=== PATIENT | female | born 1935 | race Caucasian/White ===

== ENCOUNTER → 2017-10-01 12:16 | Outpatient (CLI) | payer MEDICARE, SELFPAY ==
[2017-10-01 14:17] LABS: Absolute Lymphocyte Count 1.27 X10^3/ul (0.83-4.51); Basophil# 0.01 X10^3/uL; Basophil% 0.1 % (0-1); Eosinophil# 0.33 X10^3/uL; Eosinophils% 3.5 % (0-5); Hematocrit 33.9 % (37-47); Hemoglobin 10.3 g/dl (12.0-15.0); Lymphocyte # 1.27 X10^3/ul (4.0); Lymphocyte % 13.7 % (19-41); Mean Corp Hgb Conc 30.4 g/gl (32-36); Mean Corpuscular Hgb 24.4 pg (27.0-32.0); Mean Corpuscular Volume 80.3 fL (81-99); Mean Platelet Vol. 9.4 fl (6.2-12.0); Monocyte# 0.71 X10^3/uL; Monocyte% 7.6 % (0-10); Neutrophil # 6.97 X10^3/uL (2.7-7.7); POSITIVE COUNT NO; POSITIVE DIFFERENTIAL NO; POSITIVE MORPHOLOGY NO; Platelet Count 349 K/mm3 (150-450); RBC Distribution Width CV 18.1 % (11.6-14.6); RBC Distribution Width SD 51.7 fl (35.1-43.9); Red Blood Count 4.22 M/mm3 (4.2-5.4); White Blood Count 9.3 K/mm3 (4.4-11.0)
[2017-10-01 14:37] LABS: ALB/GLOB Ratio 0.8 RATIO (0.9-2.4); AST(SGOT) 14 U/L (15-37); Alanine Aminotransfer ALT/SGPT 10 U/L (13-56); Albumin, Serum 3.1 g/dL (3.2-5.0); Alkaline Phosphatase 79 U/L (45-117); Anion Gap 8 (5-15); BUN 10 mg/dL (7-18); BUN/Creat Ratio 12.6 RATIO (10-20); Calcium,Total 8.8 mg/dL (8.5-10.1); Chloride 105 mmol/L (98-107); EST Glomerular Filtration Rate 74 mL/min (>60); Est Glom Filt Rate - Afr Amer 89 mL/min (>60); Globulin 3.9 g/dL (2.2-4.2); Glucose 106 mg/dL (74-106); Potassium 4.2 mmol/L (3.5-5.1); Sodium Level 140 mmol/L (136-145)
== END ==
PROVIDERS: Family Provider Family Medicine; PCP Family Medicine; Visit Provider Internal Medicine Rheumatology
DX: L40.59 Other psoriatic arthropathy (principal); Z79.899 Other long term (current) drug therapy; L40.8 Other psoriasis; M79.7 Fibromyalgia; M17.0 Bilateral primary osteoarthritis of knee; K21.0 Gastro-esophageal reflux disease with esophagitis; M47.897 Other spondylosis, lumbosacral region; M47.892 Other spondylosis, cervical region; Z85.42 Personal history of malignant neoplasm of other parts of uterus; Z90.710 Acquired absence of both cervix and uterus
CPT/HCPCS: 36415; 80053; 85025

== ENCOUNTER 2017-10-12 18:05 | Observation (INO) | payer MEDICARE, SELFPAY ==
[2017-10-12 18:11] VITALS: BP 175/69; PULSE 91; RESP 17; TEMP 36.8; O2SAT 93; BMI 39.8
[2017-10-12 18:57] LABS: Absolute Neutrophil Count 8.6 X10^3/uL (2.0-7.7); Basophil# 0.01 X10^3/uL; Basophil% 0.1 % (0-1); Eosinophil# 0.08 X10^3/uL; Eosinophils% 0.8 % (0-5); Hematocrit 33.6 % (37-47); Hemoglobin 10.2 g/dl (12.0-15.0); Lymphocyte % 8.5 % (19-41); Mean Corp Hgb Conc 30.4 g/gl (32-36); Mean Corpuscular Hgb 24.5 pg (27.0-32.0); Mean Corpuscular Volume 80.8 fL (81-99); Mean Platelet Vol. 8.3 fl (6.2-12.0); Monocyte% 9.4 % (0-10); Neutrophil % 81.1 % (47-70); Platelet Count 286 K/mm3 (150-450); RBC Distribution Width CV 18.9 % (11.6-14.6); RBC Distribution Width SD 55.5 fl (35.1-43.9); Red Blood Count 4.16 M/mm3 (4.2-5.4); White Blood Count 10.6 K/mm3 (4.4-11.0)
[2017-10-12] MEDS: Morphine 4 MG/ML Syringe IV ×2 (18:58→20:30)
[2017-10-12] MEDS: 0.9% Normal Saline 1,000 ML 150 ML IV (18:59)
[2017-10-12] MEDS: Ondansetron 4 MG/2 ML Vial IV (18:59)
[2017-10-12 19:08] LABS: Erythrocyte Sedimentation Rate 76 mm/hr (0-30); POSITIVE COUNT NO; POSITIVE DIFFERENTIAL NO; POSITIVE MORPHOLOGY NO
[2017-10-12 19:12] LABS: Anion Gap 9 (5-15); BUN 14 mg/dL (7-18); BUN/Creat Ratio 15.7 RATIO (10-20); CPK Total, Creatine Kinase 46 U/L (26-192); Calcium,Total 8.9 mg/dL (8.5-10.1); Chloride 103 mmol/L (98-107); Creatinine, Serum 0.89 mg/dL (0.55-1.02); EST Glomerular Filtration Rate 65 mL/min (>60); Est Glom Filt Rate - Afr Amer 78 mL/min (>60); Glucose 104 mg/dL (74-106); Potassium 3.8 mmol/L (3.5-5.1); Sodium Level 140 mmol/L (136-145)
[2017-10-12] MEDS: MethylPREDNISolone 125 MG/2 ML Vial IV (20:30)
[2017-10-12 20:33] VITALS: BP 162/70; PULSE 69; RESP 15; O2SAT 96
[2017-10-12 21:23] LABS: Mucous, Urine 0 SEEN /hpf (<or=2+); Red Blood Cells-Urine 0 SEEN /hpf (0-5)
[2017-10-12 21:31] LABS: Color, Urine Yellow (Yellow); Glucose, Dipstick Normal (Normal); Ketone-Dipstick Negative (Negative); Leukocyte Esterase-Dipstick 500 /ul (Negative); Nitrite-Dipstick Positive (Negative); Occult Blood-Urine 10 /ul (Negative); Protein-Dipstick Negative (Negative); Urine Bilirubin Dipstick Negative (Negative); Urine Clarity Sl. Cloudy (Clear); Urine Urobilinogen Normal (Normal)
[2017-10-12 21:47] LABS: Bacteria 4+ /hpf (None Seen); Squamous Epithelial Cells - UA 0-5 SEEN /hpf (5-10); White Blood Cells 10-25 SEEN /hpf (0-5)
--- NOTE | 2017-10-12 22:20 | ED.VISSUMM ---
- ER Visit Summary Date of Service: 10/12/17 Chief Complaint: Diffuse pain and weakness History of Present Illness: The patient is a [address] Negron, Dr. apolonia bardales, and Dr. Nobles. She has a history of rheumatoid arthritis. She reports that today she has diffuse myalgias and arthralgias that are 10 out of 10 in severity with movement and 8 out of 10 at rest. She has taken her OxyContin without relief. She denies any trauma. No fall, MVA, or change in activity. Patient does complain of dysuria. She denies frequency. No fever or chills. Physical Examination: Vitals: Stable. Afebrile. General: Well-nourished and well-developed. Head: Normocephalic atraumatic. Neck: Supple, no lymphadenopathy. No JVD. Nontender. Cardiovascular: Regular rate and rhythm. No murmurs. Respiratory: No respiratory distress. Clear to auscultation bilaterally. Abdominal: Soft, nontender, nondistended, normal bowel sounds. No guarding, rebound, or peritoneal signs. Back: Diffuse tenderness to palpation over her entire back. No localized tenderness. Extremities: Diffuse tenderness palpation over her upper and lower extremities bilaterally. This is not localized over the joints. There is no focal tenderness to palpation. There is no erythema. I do not appreciate any joint swelling. Skin: Normal color, no rash. Neurologic: Alert and oriented ?3. Cranial nerves II through XII are intact. Normal strength and sensation. Psych: Depressed affect. Test Results: CBC is marked for an H&H of 10.2 and 33.6, segmented neutrophils of 81: Sats at 9. Chem-7 is normal. Sed rate is 76. CRP is 44.6. CPK is normal. UA does show a UTI. Emergency Department Course and Treatment: Patient was treated with morphine IV and Solu-Medrol IV. On repeat exam she continues to state that she is too weak to go home. She was given a dose of Rocephin IV and her urine was sent for culture. Treatment Plan: At this time patient tach cannot even get up to the bedside commode. She lives at home with her . I feel that she warrants admission to the hospital overnight for observation and further treatment. Disposition: Admitted in improved condition. Impression: 1. Rheumatoid arthritis. 2. UTI. 3. Generalized weakness. This note was generated with [employer] dictation software. It may contain incorrect words, spelling, and punctuation that were not noted in review of the chart prior to signing ED Disposition - Plan for ED Patient: Chief Complaint: Other, Pain/Inj Referrals: Yony Wilson MD [Primary Care Provider] -
[2017-10-12] MEDS: Ceftriaxone 1 GM/50 ML BAG IV (22:35)
--- NOTE | 2017-10-12 22:53 | HP.PCM_ITS ---
Problem List (1) Rheumatoid arthritis Status: Acute (2) UTI (urinary tract infection) Status: Acute (3) Generalized weakness Status: Acute History of Present Illness Date of Admission: 10/12/17 Chief Complaint: Generalized weakness The patient is a 82 year old female w/ h/o RA, OA, HTN and depression admitted for generalized weakness. She has been having increase generalized dull aching pain in the past few months to weeks. She also has been requiring more and more narcotics to keep her pain under controlled. However, today, she has severe diffused dull aching pain throughout her body. Nothing made it better or worse. Despite taking her pain meds, she continued to have pain. Pain is constant and has affected her ADLs. The pain is so incapacitating that she is unable to do her functional ADLs. She went to the ED for further workup. She also has dysuria today. There is no other symptoms associated with her dysuria. No change in frequency. No burning sensation. No fever or chill. Past Medical History Allergies Penicillins Allergy (Verified 10/12/17 18:06) Hives Home Medications: Ambulatory Orders Medication Instructions Recorded Citalopram [Celexa] 40 mg PO DAILY 07/06/15 Methotrexate 15 mg PO SA 07/06/15 Oxycodone CR [Oxycontin] 20 mg PO Q12H PRN PRN 07/06/15 Tizanidine HCl [Zanaflex] 4 mg PO Q8H PRN PRN 07/06/15 Zolpidem Tartrate [Ambien] 10 mg PO QHS 07/06/15 Esomeprazole Mag Trihydrate 40 mg PO DAILY 07/19/15 [Nexium] Folic Acid 1 mg PO DAILY@0800 07/19/15 Meloxicam [Mobic] 15 mg PO DAILY 07/19/15 Amlodipine/Valsartan [Exforge 1 each PO DAILY 06/02/17 5-320 mg Tablet] Apremilast [Otezla] 30 mg PO BID 06/02/17 Celecoxib [Celebrex] 200 mg PO DAILY 06/02/17 Cetirizine HCl [Zyrtec] 10 mg PO QHS 06/02/17 Docusate Sodium [Colace] 100 mg PO DAILY #20 capsule 06/04/17 Surgical History: no surgical history Psychiatric History: No pertinent psych hx 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 Lives: Spouse/ Significant Other Smoking Status: Never smoker Alcohol: None Drugs: None - *Family History Maternal History Items: No pertinent history Review of Systems Constitutional: Denies: Chills, Fever, Weight Change Eyes: Denies: Cataracts, Drainage HEENT: Denies: Head Aches, Sinus Congestion, Sinus Drainage Cardiovascular: Denies: Chest Pain, Palpitations Respiratory: Denies: Cough, Shortness of breath at rest, Sputum production Gastrointestinal: Denies: Abdominal Pain, Nausea, Vomiting Genitourinary: Denies: Dysuria Gynecological: Denies: Breast symptoms, Excessively long or heavy periods Musculoskeletal: Denies: Joint Pain, Joint Tenderness Skin: Denies: Rash, Wounds Neurological: Denies: Numbness, Tingling, Focal weakness Psychiatric: Denies: Anxiety, Depression, Homicidal Ideations, Suicidal Ideations Hematologic/ Lymphatic: Denies: Easy Bruising, Easy Bleeding VTE Information - Inpt Only VTE Present on Admission: No VTE Mechan Device Prophylaxis: SCD's VTE Pharm Prophylaxis ordered?: Yes Patient Problems: Active and Suspected Problems Rheumatoid arthritis (Acute) UTI (urinary tract infection) (Acute) Generalized weakness (Acute) - Physical Exam General: Alert, Cooperative HEENT: Atraumatic, PERRLA, EOMI, Normocephalic Neck: Supple, No JVD, Negative Carotid Bruits Lungs: Clear to auscultation, Normal air movement Cardiovascular: Regular rate, No murmurs Abdomen: Bowel Sounds Present, Soft, Non Tender Extremities: No edema, Capillary Refill Less than 3 Seconds Skin: No rashes, No breakdown Musculoskeletal: No Tenderness to Palpation of Joints or Extremities Neurological: Cranial nerves II-XII grossly intact Psych/Mental Status: Normal Affect, Appropriate Vital Signs Temp Pulse Resp BP Pulse Ox 98.3 F 69 15 162/70 H 96 10/12/17 18:11 10/12/17 20:33 10/12/17 20:33 10/12/17 20:33 10/12/17 20:33 Oxygen Flow Rate (L/min) 2 Oxygen Delivery Method Nasal Cannula Weight: 102.058 kg Body Mass Index (BMI) 39.8 Laboratory Tests Past 24 Hrs 10/12/17 10/12/17 10/12/17 18:40 18:40 21:22 WBC 10.6 RBC 4.16 L Hgb 10.2 L Hct 33.6 L MCV 80.8 L MCH 24.5 L MCHC 30.4 L RDW 18.9 H RDW Differential 55.5 H Plt Count 286 MPV 8.3 Immature Gran % (Auto) 0.100 Neut % (Auto) 81.1 H Lymph % (Auto) 8.5 L [place] % (Auto) 9.4 Eos % (Auto) 0.8 Baso % (Auto) 0.1 Absolute Neuts (auto) 8.6 H Absolute Lymphs (auto) 0.90 Total Counted Not Reportable ESR 76 H Sodium 140 Potassium 3.8 Chloride 103 Carbon Dioxide 28.0 Anion Gap 9 BUN 14 Creatinine 0.89 Estim Creat Clear Calc 41.70 Est GFR (MDRD) Af Amer 78 Est GFR (MDRD) Non-Af 65 BUN/Creatinine Ratio 15.7 Glucose 104 Calcium 8.9 Total Creatine Kinase 46 C-React Prot Ext Range 44.60 H Urine Color Yellow Urine Clarity Sl. Cloudy Urine pH 7.0 Ur Specific [place] 1.010 Urine Protein Negative Urine Glucose (UA) Normal Urine Ketones Negative Urine Occult Blood 10 H Urine Nitrite Positive H Urine Bilirubin Negative Urine Urobilinogen Normal Ur Leukocyte Esterase 500 H Urine RBC 0 SEEN Urine WBC 10-25 SEEN Ur Squamous Epith Cells 0-5 SEEN Urine Bacteria 4+ Urine Mucus 0 SEEN Assessment/Plan Active and Suspected Problems Rheumatoid arthritis (Acute) UTI (urinary tract infection) (Acute) Generalized weakness (Acute) 82 year old female w/ h/o RA, OA, HTN and depression admitted for generalized weakness. 1) Generalized weakness: Probably secondary to incapacitating pain, high dose narcotics, and UTI. Supportive care. Will try to limit narcotics if possible. 2) UTI: C/w ceftriaxone. Cultures pending. Monitor. 3) RA: Resume home meds. Monitor. 4) Prophylaxis: SCD / heparin.
[2017-10-13] VITALS (7 sets, daily range): BP systolic 107–160; BP diastolic 55–84; PULSE 55–84; RESP 16–18; TEMP 36.4–36.7; O2SAT 95–97; BMI 39.2; BMI 39.3
[2017-10-13] MEDS: 0.9% Normal Saline 1,000 ML 150 ML IV ×2 (02:00→09:07)
[2017-10-13] MEDS: tiZANidine HCl 2 MG Tablet 4 MG PO ×2 (02:46→21:24)
[2017-10-13] MEDS: Acetaminophen 325 MG Tablet 650 MG PO ×4 (02:46→21:24)
[2017-10-13] MEDS: Heparin Injection (Vial) 5,000 UNIT/ML VIAL 5000 UNIT SC ×3 (05:49→21:24)
[2017-10-13 06:22] LABS: Anion Gap 6 (5-15); BUN 14 mg/dL (7-18); BUN/Creat Ratio 18.7 RATIO (10-20); Calcium,Total 8.3 mg/dL (8.5-10.1); Chloride 108 mmol/L (98-107); Creatinine, Serum 0.75 mg/dL (0.55-1.02); EST Glomerular Filtration Rate 79 mL/min (>60); Est Glom Filt Rate - Afr Amer 96 mL/min (>60); Estimated Creatinine Clearance 37.12 ml/min; Glucose 182 mg/dL (74-106); Potassium 4.7 mmol/L (3.5-5.1); Sodium Level 137 mmol/L (136-145)
[2017-10-13 06:32] LABS: Absolute Lymphocyte Count 0.46 X10^3/ul (0.83-4.51); Hematocrit 31.8 % (37-47); Hemoglobin 9.5 g/dl (12.0-15.0); Lymphocyte # 0.46 X10^3/ul (4.0); Lymphocyte % 6.1 % (19-41); Mean Corp Hgb Conc 29.9 g/gl (32-36); Mean Corpuscular Hgb 24.3 pg (27.0-32.0); Mean Corpuscular Volume 81.3 fL (81-99); Mean Platelet Vol. 8.7 fl (6.2-12.0); Monocyte# 0.07 X10^3/uL; Monocyte% 0.9 % (0-10); Neutrophil # 7.03 X10^3/uL (2.7-7.7); Neutrophil % 92.9 % (47-70); Platelet Count 286 K/mm3 (150-450); RBC Distribution Width CV 18.9 % (11.6-14.6); RBC Distribution Width SD 55.2 fl (35.1-43.9); Red Blood Count 3.91 M/mm3 (4.2-5.4); White Blood Count 7.6 K/mm3 (4.4-11.0)
[2017-10-13 06:43] LABS: Differential Indicated SCAN CRITERIA MET; POSITIVE COUNT NO; POSITIVE DIFFERENTIAL YES; POSITIVE MORPHOLOGY NO
[2017-10-13 07:09] LABS: Anisocytosis 2+; Differential Comment SCANNED; Hypochromasia 1+
--- NOTE | 2017-10-13 08:36 | PN_ITS ---
Patient Problems: Active and Suspected Problems Rheumatoid arthritis (Acute) UTI (urinary tract infection) (Acute) Generalized weakness (Acute) Subjective: Patient is an 82-year-old lady with comorbidities including rheumatoid arthritis who presented with progressive generalized weakness. Admission assessment was consistent with acute cystitis started on Rocephin admitted to regular nursing floor where patient has since been managed Objective: GENERAL: cooperative HEENT: Clear conjunctiva, NECK; supple, normal thyroid, CHEST: Clear to auscultation bilaterally, HEART: Regular S1 S2, no audible murmurs ABDOMEN: soft, non-tender, normoactive bowel sounds, RECTAL: deferred EXTREMITIES: No edema, no clubbing, no cyanosis. FUR TRIMMER: Awake, no lateralizing signs. SKIN: No rash Vitals/I&O's: Vital Signs Temp Pulse Resp BP Pulse Ox 98.1 F 55 L 18 107/55 L 95 10/13/17 05:52 10/13/17 05:52 10/13/17 05:52 10/13/17 05:52 10/13/17 05:52 Oxygen Flow Rate (L/min) 2 Oxygen Delivery Method Room Air Weight: 100.6 kg Body Mass Index (BMI) 39.2 Intake and Output for Last 24 Hours 10/11/17 10/12/17 10/13/17 23:59 23:59 23:59 Intake Total 1055 / 1055 Output Total 300 / 300 Balance 755 / 755 Laboratory Results 10/13/17 05:24: WBC Cancelled, Corrected WBC Cancelled, RBC Cancelled, Hgb Cancelled, Hct Cancelled, MCV Cancelled, MCH Cancelled, MCHC Cancelled, RDW Cancelled, RDW Differential Cancelled, Plt Count Cancelled, MPV Cancelled, Immature Gran % (Auto) Cancelled, Neut % (Auto) Cancelled, Lymph % (Auto) Cancelled, [place] % (Auto) Cancelled, Eos % (Auto) Cancelled, Baso % (Auto) Cancelled, Absolute Neuts (auto) Cancelled, Absolute Lymphs (auto) Cancelled, Total Counted Cancelled, Neutrophils % (Manual) Cancelled, Band Neutrophils % Cancelled, Lymphocytes % (Manual) Cancelled, Monocytes % (Manual) Cancelled, Eosinophils % (Manual) Cancelled, Basophils % (Manual) Cancelled, Metamyelocytes % Cancelled, Myelocytes % Cancelled, Promyelocytes % Cancelled, Blast Cells % Cancelled, Plasma Cell % (Manual) Cancelled, Other Cells % Cancelled, Nucleated RBCs/100 WBC Cancelled, Differential Comment Cancelled, Diff Path Review Cancelled, Hypersegmented Neuts Cancelled, Atypical Lymphocytes Cancelled, Reactive Lymphocytes Cancelled, Smudge Cells Cancelled, Toxic Granulation Cancelled, Dohle Bodies Cancelled, Mone Rods Cancelled, Platelet Estimate Cancelled, Plt Morphology Comment Cancelled, RBC Morphology Cancelled, Polychromasia Cancelled, Hypochromasia Cancelled, Poikilocytosis Cancelled, Basophilic Stippling Cancelled, Anisocytosis Cancelled, Microcytosis Cancelled, Macrocytosis Cancelled, Spherocytes Cancelled, Sickle Cells Cancelled , Target Cells Cancelled, Tear Drop Cells Cancelled, Ovalocytes Cancelled, Stomatocytes Cancelled, [place] Bodies Cancelled, Rufus Cells Cancelled, Bite Cells Cancelled, Acanthocytes (Spur) Cancelled, Rouleaux Cancelled, Schistocytes Cancelled 10/13/17 05:24: Sodium 137, Potassium 4.7, Chloride 108 H, Carbon Dioxide 23.0, Anion Gap 6, BUN 14, Creatinine 0.75, Estim Creat Clear Calc 37.12, Est GFR ( MDRD) Af Amer 96, Est GFR (MDRD) Non-Af 79, BUN/Creatinine Ratio 18.7, Glucose 182 H, Calcium 8.3 L 10/13/17 06:10: WBC 7.6, RBC 3.91 L, Hgb 9.5 L, Hct 31.8 L, MCV 81.3, MCH 24.3 L , MCHC 29.9 L, RDW 18.9 H, RDW Differential 55.2 H, Plt Count 286, MPV 8.7, Immature Gran % (Auto) 0.100, Neut % (Auto) 92.9 H, Lymph % (Auto) 6.1 L, [place] % (Auto) 0.9, Eos % (Auto) 0.0, Baso % (Auto) 0.0, Absolute Neuts (auto) 7.0, Absolute Lymphs (auto) 0.46 L, Total Counted Not Reportable, Differential Comment SCANNED, Hypochromasia 1+, Anisocytosis 2+ Current Medications Acetaminophen (Tylenol) 650 mg PO Q6H PRN PRN PRN Reason: PAIN Last Admin: 10/13/17 02:46 Dose: 650 mg Amlodipine Besylate (Norvasc) 5 mg PO DAILY [facility] Citalopram Hydrobromide (Celexa) 40 mg PO DAILY [facility] Docusate Sodium (Colace) 100 mg PO DAILY [facility] Folic Acid (Folic Acid) 1 mg PO DAILY@0800 [facility] Heparin Sodium (Porcine) (Heparin Na) 5,000 unit SC Q8 [facility] Last Admin: 10/13/17 05:49 Dose: 5,000 u Sodium Chloride () 1,000 mls @ 150 mls/hr IV .Q6H40M [facility] Last Admin: 10/13/17 02:00 Dose: 150 mls/hr Ceftriaxone Sodium (Rocephin) 1 gm in 50 mls @ 100 mls/hr IV Q24 [facility] Loratadine (Claritin) 10 mg PO QHS [facility] Magnesium Hydroxide (Milk Of Magnesia) 30 ml PO DAILY PRN PRN PRN Reason: Constipation Methotrexate (Methotrexate) 15 mg PO SA [facility] Non-Formulary Medication (Apremilast) 30 mg PO BID [facility] Pantoprazole Sodium (Protonix) 40 mg PO DAILY [facility] Senna (Senokot) 2 tablet PO DAILY [facility] Sodium Chloride () 5 - 30 ml IV UD PRN PRN Reason: SALINE FLUSH Tizanidine HCl (Zanaflex) 4 mg PO Q8H PRN PRN PRN Reason: MUSCLE SPASMS Last Admin: 10/13/17 02:46 Dose: 4 mg Valsartan (Diovan) 320 mg PO DAILY [facility] Zolpidem Tartrate (Ambien (Generic)) 5 mg PO QHS [facility] Medical Necessity - Tobacco Use Smoking Status: Never smoker Assessment/Plan Active and Suspected Problems Rheumatoid arthritis (Acute) UTI (urinary tract infection) (Acute) Generalized weakness (Acute) Patient is an 82-year-old lady with comorbidities including rheumatoid arthritis who presented with progressive generalized weakness. Admission assessment was consistent with acute cystitis started on Rocephin admitted to regular nursing floor where patient has since been managed 1. Acute cystitis without hematuria: Patient has been admitted to regular nursing floor cultures were sent and admission managed on Rocephin with plans to adjust antibiotic therapy based on culture result 2. Progressive generalized weakness possibly secondary to above in addition to patient underlying history of generalized osteoarthritis and rheumatoid arthritis requested for PT OT eval and social media director to assist with discharge planning 3. Rheumatoid arthritis patient patient is on methotrexate did continue 4. Generalized osteoarthritis 5. Hypertension pressure stable home medications continued 6. Depression patient is on SSRI 7. DVT prophylaxis SC heparin Code Visit OBSV E&M: 54459 Subsequent observation care L3
[2017-10-13] MEDS: Folic Acid 1 MG Tablet PO (09:05)
[2017-10-13] MEDS: Pantoprazole Sodium 40 MG Tablet PO (09:06)
[2017-10-13] MEDS: amLODIPine 5 MG Tablet PO (09:06)
[2017-10-13] MEDS: Docusate Sodium 100 MG Capsule PO (09:06)
[2017-10-13] MEDS: Citalopram 40 MG TABLET PO (09:07)
[2017-10-13] MEDS: Ceftriaxone 1 GM/50 ML BAG IV (09:08)
[2017-10-13] MEDS: Senna Tablet 2 TABLET PO (09:23)
[2017-10-13] MEDS: Loratadine 10 MG Tablet PO (21:24)
[2017-10-13] MEDS: Zolpidem Tartrate 5 MG Tablet PO (23:00)
[2017-10-14 02:10] VITALS: BP 150/78; PULSE 67; RESP 18; TEMP 36.4; O2SAT 97
[2017-10-14] MEDS: Heparin Injection (Vial) 5,000 UNIT/ML VIAL 5000 UNIT SC (06:04)
[2017-10-14 08:06] VITALS: BP 185/96; PULSE 76; RESP 20; TEMP 36.6; O2SAT 100
[2017-10-14] MEDS: Pantoprazole Sodium 40 MG Tablet PO (08:15)
[2017-10-14] MEDS: tiZANidine HCl 2 MG Tablet 4 MG PO (08:15)
[2017-10-14] MEDS: Acetaminophen 325 MG Tablet 650 MG PO (08:15)
[2017-10-14] MEDS: amLODIPine 5 MG Tablet PO (08:16)
[2017-10-14] MEDS: Folic Acid 1 MG Tablet PO (08:16)
--- NOTE | 2017-10-14 08:28 | PCM.DC ---
- Discharge Diagnoses Current Active Problems: Current Active and Chronic Problems Rheumatoid arthritis (Acute) UTI (urinary tract infection) (Acute) Generalized weakness (Acute) You will use the following diet at home:: No restrictions Discharge Activity: May not drive while taking narcotic pain medications. Allergies/Adverse Reactions: Allergies Penicillins Allergy (Verified 10/12/17 18:06) Hives Medications to take at Discharge Citalopram [Celexa] 40 mg PO DAILY 07/06/15 Methotrexate 15 mg PO SA 07/06/15 Oxycodone CR [Oxycontin] 20 mg PO Q12H PRN PRN 07/06/15 Tizanidine HCl [Zanaflex] 4 mg PO Q8H PRN PRN 07/06/15 Zolpidem Tartrate [Ambien] 10 mg PO QHS 07/06/15 Esomeprazole Mag Trihydrate [Nexium] 40 mg PO DAILY 07/19/15 Folic Acid 1 mg PO DAILY@0800 07/19/15 Meloxicam [Mobic] 15 mg PO DAILY 07/19/15 Amlodipine/Valsartan [Exforge 5-320 mg Tablet] 1 each PO DAILY 06/02/17 Apremilast [Otezla] 30 mg PO BID 06/02/17 Celecoxib [Celebrex] 200 mg PO DAILY 06/02/17 Cetirizine HCl [Zyrtec] 10 mg PO QHS 06/02/17 Docusate Sodium [Colace] 100 mg PO DAILY #20 capsule 06/04/17 Cephalexin [Keflex] 500 mg PO Q12 #14 cap 10/14/17 The following prescriptions were given: Cephalexin [Keflex] 500 mg PO Q12 #14 cap Primary Care Physician: Yony Wilson MD [Primary Care Provider] - Please follow up with your Primary Care Physician in: in 3-5 days Proposed Discharge Date: 10/14/17
--- NOTE | 2017-10-14 08:31 | PCM.DC.SUM ---
Discharge Date and Diagnosis - Problem List Patient Problems: Active and Suspected Problems UTI (urinary tract infection) (Acute) Generalized weakness (Acute) Date of Admission: 10/12/17 Date of Discharge: 10/14/17 - Primary Discharge Diagnosis Active and Suspected Problems UTI (urinary tract infection) (Acute) Generalized weakness (Acute) - Secondary Discharge Diagnosis Chronic Problems Rheumatoid arthritis (Chronic) Hospital Course and Treatment Summary of Care Provided: Patient is an 82-year-old lady with comorbidities including rheumatoid arthritis who presented with progressive generalized weakness. Admission assessment was consistent with acute cystitis started on Rocephin admitted to regular nursing floor where patient has since been managed 1. Acute cystitis without hematuria with Klebsiella: Patient was admitted to regular nursing floor cultures were sent and admission managed on Rocephin which was switched to Keflex on discharge 2. Progressive generalized weakness possibly secondary to above in addition to patient underlying history of generalized osteoarthritis and rheumatoid arthritis requested for PT OT eval and high school social studies teacher to assist with discharge planning 3. Rheumatoid arthritis patient patient is on methotrexate did continue 4. Generalized osteoarthritis 5. Hypertension pressure stable home medications continued 6. Depression patient is on SSRI 7. DVT prophylaxis SC heparin Discharge Diet: No Restrictions Discharge Activity: May not drive while taking narcotic pain medications. Home Medications: Medications to take at Discharge Citalopram [Celexa] 40 mg PO DAILY 07/06/15 Methotrexate 15 mg PO SA 07/06/15 Oxycodone CR [Oxycontin] 20 mg PO Q12H PRN PRN 07/06/15 Tizanidine HCl [Zanaflex] 4 mg PO Q8H PRN PRN 07/06/15 Zolpidem Tartrate [Ambien] 10 mg PO QHS 07/06/15 Esomeprazole Mag Trihydrate [Nexium] 40 mg PO DAILY 07/19/15 Folic Acid 1 mg PO DAILY@0800 07/19/15 Meloxicam [Mobic] 15 mg PO DAILY 07/19/15 Amlodipine/Valsartan [Exforge 5-320 mg Tablet] 1 each PO DAILY 06/02/17 Apremilast [Otezla] 30 mg PO BID 06/02/17 Celecoxib [Celebrex] 200 mg PO DAILY 06/02/17 Cetirizine HCl [Zyrtec] 10 mg PO QHS 06/02/17 Docusate Sodium [Colace] 100 mg PO DAILY #20 capsule 06/04/17 Cephalexin [Keflex] 500 mg PO Q12 #14 cap 10/14/17 Following Prescrptions Were Given to Patient: Cephalexin [Keflex] 500 mg PO Q12 #14 cap Primary Care Physician: Yony Wilson MD [Primary Care Provider] - Please follow up with your Primary Care Physician in: in 3-5 days Disposition: Home Minutes spent on discharge:: 35 Patient Condition:: Stable Medical Necessity - Tobacco Use Smoking Status: Never smoker Meaningful Use Info Meaningful Use Diagnoses (Choose all that apply): None applicable Code Visit OBSV E&M: 59094 Observation care discharge
[2017-10-14 10:00] VITALS: BP 151/89; PULSE 66; RESP 16
[2017-10-14] MEDS: Citalopram 40 MG TABLET PO (10:02)
== END 2017-10-14 10:15 | disposition home or self-care (01) ==
LOC: ED 20:49 → MS3 10-13 00:25
PROVIDERS: Admitting Provider Internal Medicine; Emergency Provider Emergency Medicine; Family Provider Family Medicine; PCP Family Medicine; Visit Provider Internal Medicine
DX: N30.00 Acute cystitis without hematuria (principal); R53.1 Weakness; M06.9 Rheumatoid arthritis, unspecified; M15.9 Polyosteoarthritis, unspecified; I10 Essential (primary) hypertension; F32.9 Major depressive disorder, single episode, unspecified; Z79.899 Other long term (current) drug therapy
CPT/HCPCS: 36415; 80048; 81001; 82550; 85025; 85652; 86140; 87040; 87077; 87086; 87088; 87186; 96361; 96365; 96372; 96375; 96376; 97162; 97165; 99218; 99285; J7030; A4216; G0378; J2405

== ENCOUNTER 2017-12-18 21:12 | Observation (INO) | payer MEDICARE, SELFPAY ==
[2017-12-18 21:13] VITALS: BP 142/78; PULSE 67; RESP 18; TEMP 36.9; O2SAT 98; BMI 39.4
--- NOTE | 2017-12-18 21:28 | EKG12_ITS ---
Test Reason : OVERDOSE Blood Pressure : / mmHG Vent. Rate : 062 BPM Atrial Rate : 062 BPM P-R Int : 160 ms QRS Dur : 094 ms QT Int : 450 ms P-R-T Axes : 045 -12 025 degrees QTc Int : 456 ms Normal sinus rhythm Nonspecific ST abnormality Abnormal ECG Confirmed by KHUSHI JACK, KO ([id number]), technical editor ZHANG GUZMAN ([id number] on 12/22/2017 3:03:24 PM Referred By: SHYLA Confirmed By:KO PURI MD
--- NOTE | 2017-12-18 21:30 | RAD_ITS ---
STUDY: X-RAY CHEST REASON FOR EXAM: Female, 82 years old. Shortness of breath. Dyspnea. TECHNIQUE: Single AP portable view of the chest. COMPARISON: June 02, 2017 FINDINGS: There are monitoring devices. The lungs are clear and expanded. There is no demonstrated pleural abnormality. There is mild cardiac enlargement. Normal mediastinum and alexa. Normal visualized pulmonary arteries. Normal visualized aortic arch and descending thoracic aorta. There is demineralization of the osseous structures. Normal visualized ribs, clavicles, and shoulders. There is no demonstrated abnormality of the visualized soft tissue structures of the upper abdomen. RAD/Chest 1 View (Portable) IMPRESSION: Cardiac enlargement. No focal infiltrate. Electronically Signed: Hayden Corea MD at 22:06 EDT , Service support ,
--- NOTE | 2017-12-18 21:32 | ED.VISSUMM ---
- ER Visit Summary Date of Service: 12/18/17 Chief Complaint: Overdose History of Present Illness: The patient is a 82 F presenting with overdose. Patient's states she has been under a lot of stress recently. Her daughter recently moved to [place]. Her dog recently . She was seen by her primary care physician yesterday. She was prescribed Macrobid and Ativan. Today he noted that she had taken 13 Ativan. He is unsure the timeframe. The prescription was filled yesterday. She also takes OxyContin 20 mg twice daily. She has chronic pain secondary to rheumatoid arthritis. He states she has been taking this appropriately. She is drowsy but arousable. Physical Examination: Vitals are stable. Patient is afebrile. Alert no acute distress. HEENT exam is unremarkable. Neck is supple. Lungs are clear and equal bilaterally. Heart is regular rate and rhythm. Abdomen is soft nontender nondistended. Extremities are unremarkable. Skin is warm and dry. No focal neurologic deficit. Opens eyes to voice. Remainder of exam is unremarkable. Emergency Department Course and Treatment: EKG is sinus rate is 62 no acute ischemic changes. Chest x-ray shows no infiltrate. CBC unremarkable except hemoglobin 10.1. Chemistries unremarkable. Urinalysis unremarkable. Tylenol and aspirin level negative. Alcohol negative. Tox positive for opiates. Patient opens eyes to voice and follows commands. She answers questions appropriately. She denies suicidal thoughts or gesture. Will discuss with the hospitalist for observation. Disposition: Observation Impression: Benzodiazepine overdose This note was generated with [employer] dictation software. It may contain incorrect words, spelling, and punctuation that were not noted in review of the chart prior to signing ED Disposition - Plan for ED Patient: Chief Complaint: Overdose Referrals: Yony Wilson MD [Primary Care Provider] -
[2017-12-18 21:48] LABS: Absolute Lymphocyte Count 1.36 X10^3/ul (0.83-4.51); Absolute Neutrophil Count 6.4 X10^3/uL (2.0-7.7); Basophil# 0.01 X10^3/uL; Basophil% 0.1 % (0-1); Eosinophils% 2.5 % (0-5); Hemoglobin 10.1 g/dl (12.0-15.0); Lymphocyte # 1.36 X10^3/ul (4.0); Lymphocyte % 16.7 % (19-41); Mean Corp Hgb Conc 31.6 g/gl (32-36); Mean Corpuscular Hgb 26.1 pg (27.0-32.0); Mean Corpuscular Volume 82.7 fL (81-99); Mean Platelet Vol. 8.6 fl (6.2-12.0); Monocyte# 0.13 X10^3/uL; Monocyte% 1.6 % (0-10); Neutrophil # 6.44 X10^3/uL (2.7-7.7); POSITIVE COUNT NO; POSITIVE DIFFERENTIAL NO; POSITIVE MORPHOLOGY NO; Platelet Count 219 K/mm3 (150-450); RBC Distribution Width SD 57.5 fl (35.1-43.9); Red Blood Count 3.87 M/mm3 (4.2-5.4); White Blood Count 8.2 K/mm3 (4.4-11.0)
[2017-12-18 21:51] LABS: Anion Gap 6 (5-15); BUN 14 mg/dL (7-18); BUN/Creat Ratio 18.7 RATIO (10-20); Calcium,Total 9.5 mg/dL (8.5-10.1); Chloride 102 mmol/L (98-107); Creatinine, Serum 0.75 mg/dL (0.55-1.02); EST Glomerular Filtration Rate 79 mL/min (>60); Est Glom Filt Rate - Afr Amer 96 mL/min (>60); Estimated Creatinine Clearance 38.75 ml/min; Glucose 102 mg/dL (74-106); Potassium 4.1 mmol/L (3.5-5.1); Sodium Level 139 mmol/L (136-145)
[2017-12-18 22:12] LABS: Bacteria 0 SEEN /hpf (None Seen); Mucous, Urine 0 SEEN /hpf (<or=2+); Red Blood Cells-Urine 0 SEEN /hpf (0-5); Squamous Epithelial Cells - UA 0 SEEN /hpf (5-10)
[2017-12-18 22:17] LABS: Color, Urine Yellow (Yellow); Glucose, Dipstick Normal (Normal); Ketone-Dipstick Negative (Negative); Leukocyte Esterase-Dipstick 25 /ul (Negative); Nitrite-Dipstick Negative (Negative); Occult Blood-Urine Negative /ul (Negative); Protein-Dipstick Negative (Negative); Specific Gravity, Urine 1.015 (1.002-1.030); Urine Bilirubin Dipstick Negative (Negative); Urine Clarity Clear (Clear); Urine Urobilinogen Normal (Normal)
[2017-12-18 22:19] VITALS: BP 155/86; PULSE 78; RESP 18; O2SAT 96
[2017-12-18 22:20] LABS: Acetaminophen (Tylenol) Level < 2.0 ug/mL (10.0-30.0); Salicylate < 1.7 mg/dL (2.8-20.0)
[2017-12-18 22:30] LABS: Amphetamine Urine VISTA NEGATIVE (<1000 ng/mL); Barbiturate Urine VISTA NEGATIVE (< 200 ng/mL); Benzodiazepine Urine VISTA NEGATIVE (< 200 ng/mL); Cocaine Urine VISTA NEGATIVE (< 300 ng/mL); Ecstacy Urine VISTA NEGATIVE (< 500 ng/mL); Methadone Urine VISTA NEGATIVE (< 300 ng/mL); PCP Urine VISTA NEGATIVE (< 25 ng/mL); THC Urine VISTA NEGATIVE (< 50 ng/mL); Vista UDS pH Range 8
[2017-12-18 22:37] LABS: White Blood Cells 0-5 SEEN /hpf (0-5)
--- NOTE | 2017-12-18 22:58 | NURSING ---
pt denies purposeful overdose. 13 pills missing from lorazepam bottle, and also took her oxycodone.
[2017-12-18 22:59] VITALS: BP 164/76; PULSE 66; RESP 19; O2SAT 96
--- NOTE | 2017-12-18 23:26 | PCM.HP.STD ---
Problem List (1) Lethargy Status: Acute History of Present Illness Date of Admission: 12/18/17 Chief Complaint: lethargy The patient is a 82 year old F who was seen in the emergency room at [facility] after being brought in by her due to lethargy and sleepiness. Patient had been given Ativan yesterday for anxiety by her PCP, it appears according to the that 12 Ativan were missing from the patient's bottle from yesterday. These are 0.5 mg Ativan since she was not taking them previously. Patient has been under stress due to the of her pet and the fact that her daughter has moved out of state recently. Patient's who was in the emergency room at the time of my examination states that the patient has not complained of feeling depressed or wanting to or harm her self. Evaluation in the emergency room included labs which were remarkable for hemoglobin of 10.1, patient's Chem panel was unremarkable, patient's urine tox screen was positive for opiates only-I feel that there was a false negative reading for benzodiazepines on this patient's urine tox screen, I have seen this before on urine tox screens were the patient has taken Ativan. On physical examination, patient appear to be drowsy, review of systems was unable to be obtained from the patient and I obtained information from the patient's who was in the ER room at the time of my exam. Patient will be placed in observation status on PCU and observe closely, I feel that she has unintentionally taken too many Ativan and she is also chronically on oxycodone for rheumatoid arthritis pain. Patient will be placed in observation status for unintentional benzodiazepine overdose with somnolence Past Medical History Past Medical History (Chronic Problems): Chronic Problems Rheumatoid arthritis (Chronic) Allergies Penicillins Allergy (Verified 10/12/17 18:06) Hives Home Medications: Ambulatory Orders Medication Instructions Recorded Citalopram [Celexa] 40 mg PO DAILY 07/06/15 Methotrexate 15 mg PO SA 07/06/15 Oxycodone CR [Oxycontin] 20 mg PO Q12H PRN PRN 07/06/15 Tizanidine HCl [Zanaflex] 4 mg PO Q8H PRN PRN 07/06/15 Zolpidem Tartrate [Ambien] 10 mg PO QHS 07/06/15 Esomeprazole Mag Trihydrate 40 mg PO DAILY 07/19/15 [Nexium] Folic Acid 1 mg PO DAILY@0800 07/19/15 Meloxicam [Mobic] 15 mg PO DAILY 07/19/15 Amlodipine/Valsartan [Exforge 1 each PO DAILY 06/02/17 5-320 mg Tablet] Apremilast [Otezla] 30 mg PO BID 06/02/17 Celecoxib [Celebrex] 200 mg PO DAILY 06/02/17 Cetirizine HCl [Zyrtec] 10 mg PO QHS 06/02/17 Docusate Sodium [Colace] 100 mg PO DAILY #20 capsule 06/04/17 Lorazepam [Ativan] 0.5 mg PO BID 12/18/17 Nitrofurantoin Macrocrystal 100 mg PO DAILY 12/18/17 [Nitrofurantoin] Oxycodone HCl/Acetaminophen 1 tablet PO BID PRN 12/18/17 [Percocet 5/325] Theophylline [Luis Fernando-Dur] 300 mg PO DAILY 12/18/17 leucovorin tablet 15 mg PO DAILY 12/18/17 Surgical History: hysterectomy, - - Knee replacement Psychiatric History: No pertinent psych hx 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 VTE Information - Inpt Only VTE Present on Admission: No VTE Mechan Device Prophylaxis: SCD's VTE Pharm Prophylaxis ordered?: No Reason prophylaxis not ordered:: Treatment Not Indicated - placed on SCD's Patient Problems: Active and Suspected Problems Lethargy (Acute) - Physical Exam General: No apparent distress, Well developed, Well nourished, Lethargic HEENT: Atraumatic, PERRLA, EOMI, Normocephalic Oral: Moist Mucosa Neck: Supple, Negative Carotid Bruits, No Nuchal Rigidity, Trachea Midline, Thyroid Normal Size and Texture Lungs: Clear to auscultation, Normal air movement, No rhonchi, No wheeze, No rales Cardiovascular: Regular rate, Regular Rhythm, Normal S1, Normal S2, No murmurs, No Ectopic Activity, PMI Normal, No rub noted, No Gallop Abdomen: Bowel Sounds Present, Soft, Non Tender, Non-Distended, No hernias noted Extremities: No clubbing, No cyanosis, No edema, Capillary Refill Less than 3 Seconds Skin: No rashes, No breakdown Musculoskeletal: No Tenderness to Palpation of Joints or Extremities Neurological: Cranial nerves II-XII grossly intact, Neuro grossly intact, Sensory exam intact to light touch and pain Psych/Mental Status: - - Patient is lethargic and somnolent, she answers some questions appropriately with prompting, she does follow commands appropriately. Vital Signs Temp Pulse Resp BP Pulse Ox 98.4 F 66 19 H 164/76 H 96 12/18/17 21:13 12/18/17 22:59 12/18/17 22:59 12/18/17 22:59 12/18/17 22:59 Oxygen Flow Rate (L/min) 2 Oxygen Delivery Method Nasal Cannula Weight: 104.326 kg Body Mass Index (BMI) 39.4 Laboratory Tests Past 24 Hrs 12/18/17 12/18/17 12/18/17 21:25 21:25 21:25 WBC 8.2 RBC 3.87 L Hgb 10.1 L Hct 32.0 L MCV 82.7 MCH 26.1 L MCHC 31.6 L RDW 19.0 H RDW Differential 57.5 H Plt Count 219 MPV 8.6 Immature Gran % (Auto) 0.100 Neut % (Auto) 79.0 H Lymph % (Auto) 16.7 L Thurston % (Auto) 1.6 Eos % (Auto) 2.5 Baso % (Auto) 0.1 Absolute Neuts (auto) 6.4 Absolute Lymphs (auto) 1.36 Total Counted Not Reportable Sodium 139 Potassium 4.1 Chloride 102 Carbon Dioxide 31.0 Anion Gap 6 BUN 14 Creatinine 0.75 Estim Creat Clear Calc 38.75 Est GFR (MDRD) Af Amer 96 Est GFR (MDRD) Non-Af 79 BUN/Creatinine Ratio 18.7 Glucose 102 Calcium 9.5 Urine Color Urine Clarity Urine pH Ur Specific Bynum Urine Protein Urine Glucose (UA) Urine Ketones Urine Occult Blood Urine Nitrite Urine Bilirubin Urine Urobilinogen Ur Leukocyte Esterase Urine RBC Urine WBC Ur Squamous Epith Cells Urine Bacteria Urine Mucus Salicylates Urine Opiates Screen Urine Methadone Screen Acetaminophen Ur Barbiturates Screen Ur Phencyclidine Scrn Ur Amphetamines Screen U Methamphetamin-MDMA U Benzodiazepines Scrn Urine Cocaine Screen U Cannabinoids Screen Ur Drug Screen Comment Ethyl Alcohol 5.0 12/18/17 12/18/17 12/18/17 21:25 22:02 22:02 WBC RBC Hgb Hct MCV MCH MCHC RDW RDW Differential Plt Count MPV Immature Gran % (Auto) Neut % (Auto) Lymph % (Auto) Thurston % (Auto) Eos % (Auto) Baso % (Auto) Absolute Neuts (auto) Absolute Lymphs (auto) Total Counted Sodium Potassium Chloride Carbon Dioxide Anion Gap BUN Creatinine Estim Creat Clear Calc Est GFR (MDRD) Af Amer Est GFR (MDRD) Non-Af BUN/Creatinine Ratio Glucose Calcium Urine Color Yellow Urine Clarity Clear Urine pH 8.0 Ur Specific Bynum 1.015 Urine Protein Negative Urine Glucose (UA) Normal Urine Ketones Negative Urine Occult Blood Negative Urine Nitrite Negative Urine Bilirubin Negative Urine Urobilinogen Normal Ur Leukocyte Esterase 25 H Urine RBC 0 SEEN Urine WBC 0-5 SEEN Ur Squamous Epith Cells 0 SEEN Urine Bacteria 0 SEEN Urine Mucus 0 SEEN Salicylates < 1.7 L Urine Opiates Screen POSITIVE H Urine Methadone Screen NEGATIVE Acetaminophen < 2.0 L Ur Barbiturates Screen NEGATIVE Ur Phencyclidine Scrn NEGATIVE Ur Amphetamines Screen NEGATIVE U Methamphetamin-MDMA NEGATIVE U Benzodiazepines Scrn NEGATIVE Urine Cocaine Screen NEGATIVE U Cannabinoids Screen NEGATIVE Ur Drug Screen Comment Ethyl Alcohol Assessment/Plan All Active Problems Lethargy (Acute) UTI (urinary tract infection) (Acute) Generalized weakness (Acute) #1 toxic encephalopathy secondary to unintentional overuse of Ativan with an overlay of chronic narcotic and muscle relaxant use-patient will be placed in observation status on PCU, she will be monitored on telemetry, she will be seen by PT and OT, her medications will be continued with the exception of her Zanaflex, Macrodantin, and Ativan #2 unintentional overdose of benzodiazepine #3 rheumatoid arthritis #4 chronic pain secondary to rheumatoid arthritis #5 anemia-etiology unclear, possibly anemia of chronic disease from rheumatoid arthritis #6 hypertension-patient will remain on her present medication #7 chronic use of theophylline-reason unknown at this time, I was not able to asked the why the patient is taking theophylline #8 recently diagnosed UTI-patient's UA in the emergency room was unremarkable, I do not feel she needs Macrodantin at this time Code Visit OBSV E&M: 95848 Initial observation care L3
--- NOTE | 2017-12-18 23:36 | NURSING ---
Called Elsa charge nurse in ED, ok to send patient to the floor.
[2017-12-18 23:58] VITALS: BMI 37.2
[2017-12-19] VITALS (8 sets, daily range): BP systolic 133–198; BP diastolic 75–93; PULSE 62–91; RESP 16–20; TEMP 36–36.7; O2SAT 94–97; BMI 37.2
[2017-12-19] MEDS: Nystatin Powder 15gm Bottle 1 APPLIC TOPICAL (02:23)
[2017-12-19] MEDS: Menthol/Lanolin/Calamine/Znox 113 GM Tube 1 APPLIC TOPICAL (02:24)
[2017-12-19] MEDS: Pantoprazole Sodium 40 MG Tablet PO (08:06)
[2017-12-19] MEDS: Citalopram 40 MG TABLET PO (08:06)
[2017-12-19] MEDS: amLODIPine 5 MG Tablet PO (08:06)
[2017-12-19] MEDS: Celecoxib 200 MG Capsule PO (08:07)
--- NOTE | 2017-12-19 13:47 | PCM.DC ---
- Discharge Diagnoses Current Active Problems: Current Active and Chronic Problems Lethargy (Acute) You will use the following diet at home:: No restrictions Your food should be the consistency of: Regular Call your doctor if you observe: - - somnolence. Allergies/Adverse Reactions: Allergies Penicillins Allergy (Verified 12/19/17 00:14) Hives Medications to take at Discharge Citalopram [Celexa] 40 mg PO DAILY 07/06/15 Methotrexate 15 mg PO SA 07/06/15 Oxycodone CR [Oxycontin] 20 mg PO Q12H PRN PRN 07/06/15 Tizanidine HCl [Zanaflex] 4 mg PO Q8H PRN PRN 07/06/15 Zolpidem Tartrate [Ambien] 10 mg PO QHS 07/06/15 Esomeprazole Mag Trihydrate [Nexium] 40 mg PO DAILY 07/19/15 Folic Acid 1 mg PO DAILY@0800 07/19/15 Meloxicam [Mobic] 15 mg PO DAILY 07/19/15 Amlodipine/Valsartan [Exforge 5-320 mg Tablet] 1 each PO DAILY 06/02/17 Apremilast [Otezla] 30 mg PO BID 06/02/17 Celecoxib [Celebrex] 200 mg PO DAILY 06/02/17 Cetirizine HCl [Zyrtec] 10 mg PO QHS 06/02/17 Docusate Sodium [Colace] 100 mg PO DAILY #20 capsule 06/04/17 Nitrofurantoin Macrocrystal [Nitrofurantoin] 100 mg PO DAILY 12/18/17 Oxycodone HCl/Acetaminophen [Percocet 5-325] 1 tablet PO BID PRN 12/18/17 Theophylline [Luis Fernando-Dur] 300 mg PO DAILY 12/18/17 leucovorin tablet 15 mg PO DAILY 12/18/17 Lorazepam [Ativan] 0.5 mg PO BID PRN #0 12/19/17 Primary Care Physician: Yony Wilson MD [Primary Care Provider] - Within 2 Weeks Proposed Discharge Date: 12/19/17
--- NOTE | 2017-12-19 13:48 | PCM.DC.SUM ---
Discharge Date and Diagnosis - Problem List Patient Problems: Active and Suspected Problems Toxic encephalopathy (Acute) Lethargy (Acute) Date of Admission: 12/18/17 Date of Discharge: 12/19/17 - Primary Discharge Diagnosis Active and Suspected Problems Toxic encephalopathy (Acute) Lethargy (Acute) - Secondary Discharge Diagnosis Chronic Problems Rheumatoid arthritis (Chronic) Hospital Course and Treatment Imaging Results: Clinical Impression(s) from Imaging Studies Chest X-Ray 12/18/17 21:30 IMPRESSION: Cardiac enlargement. No focal infiltrate. Electronically Signed: Hayden Corea MD at 22:06 EDT , Service support , Operations: None Procedures: None Summary of Care Provided: The patient is a 82 year old F presents with due to lethargy and sleepiness. Patient recently has been prescribed Ativan for the of her pet dog and her daughter moving away pretty much within very short order. Patient had been just started on Ativan a day or 2 prior and was not taking with Ambien but may been taking multiple at night when she just could not fall asleep. Patient was unable to be aroused and sent to the emergency room. Patient eventually did come to and has remained stable. Patient denies any suicidal ideation. Discussed with the patient about proper usage of benzodiazepines. Explained that benzodiazepines should be used only as necessary for severe anxiety and should not be used for sleep. Patient is already on sleep aid with Ambien. Patient told to take the Ativan only in on a selective basis and certainly not frequent... Patient stated that she expressed understanding of that. Vital Signs Height 1.63 m Weight: 98.4 kg Weight in Pounds 216.9 lbs Pulse Ox 94 Temperature 36.6 C Pulse Rate 91 Respiratory Rate 20 Blood Pressure 184/93 Blood Pressure Position Sitting Patient is no acute distress and afebrile. Heart is regular rate and rhythm plus S1-S2 without murmurs rubs or rubs. Lungs are clear to auscultation bilaterally. Abdomen is soft nontender nondistended normal bowel sounds with no HSM. [] Discharge Diet: No Restrictions Discharge Activity: Return to Normal Activity May resume sexual activity in: No Restrictions Call your doctor if you observe: - - somnolence. Home Medications: Medications to take at Discharge Citalopram [Celexa] 40 mg PO DAILY 07/06/15 Methotrexate 15 mg PO SA 07/06/15 Oxycodone CR [Oxycontin] 20 mg PO Q12H PRN PRN 07/06/15 Tizanidine HCl [Zanaflex] 4 mg PO Q8H PRN PRN 07/06/15 Zolpidem Tartrate [Ambien] 10 mg PO QHS 07/06/15 Esomeprazole Mag Trihydrate [Nexium] 40 mg PO DAILY 07/19/15 Folic Acid 1 mg PO DAILY@0800 07/19/15 Meloxicam [Mobic] 15 mg PO DAILY 07/19/15 Amlodipine/Valsartan [Exforge 5-320 mg Tablet] 1 each PO DAILY 06/02/17 Apremilast [Otezla] 30 mg PO BID 06/02/17 Celecoxib [Celebrex] 200 mg PO DAILY 06/02/17 Cetirizine HCl [Zyrtec] 10 mg PO QHS 06/02/17 Docusate Sodium [Colace] 100 mg PO DAILY #20 capsule 06/04/17 Nitrofurantoin Macrocrystal [Nitrofurantoin] 100 mg PO DAILY 12/18/17 Oxycodone HCl/Acetaminophen [Percocet 5-325] 1 tablet PO BID PRN 12/18/17 Theophylline [Luis Fernando-Dur] 300 mg PO DAILY 12/18/17 leucovorin tablet 15 mg PO DAILY 12/18/17 Lorazepam [Ativan] 0.5 mg PO BID PRN #0 12/19/17 Primary Care Physician: Yony Wilson MD [Primary Care Provider] - Within 2 Weeks Disposition: Home Minutes spent on discharge:: 25 Patient Condition:: Fair Medical Necessity - Tobacco Use Smoking Status: Never smoker Tobacco Use: Non-smoker Meaningful Use Info Meaningful Use Diagnoses (Choose all that apply): None applicable Code Visit OBSV E&M: 38058 Observation care discharge
== END 2017-12-19 14:21 | disposition home or self-care (01) ==
LOC: ED 22:16 → PCU 23:35
PROVIDERS: Admitting Provider Internal Medicine; Emergency Provider Emergency Medicine; Family Provider Family Medicine; PCP Family Medicine
DX: G92 Toxic encephalopathy (principal); T42.6X1A Poisoning by other antiepileptic and sedative-hypnotic drugs, accidental (unintentional), initial encounter; R53.83 Other fatigue; M06.9 Rheumatoid arthritis, unspecified; F41.9 Anxiety disorder, unspecified; Z79.899 Other long term (current) drug therapy; G89.29 Other chronic pain; D64.9 Anemia, unspecified; I10 Essential (primary) hypertension; Z87.440 Personal history of urinary (tract) infections
CPT/HCPCS: 71045; 80048; 80307; 80320; 80329; 81001; 85025; 93005; 96360; 97162; 97166; 99218; 99284; J7030; J7040; A4216; G0378; G0480

== ENCOUNTER → 2017-12-30 13:52 | Outpatient (CLI) | payer MEDICARE, SELFPAY ==
[2017-12-30 15:07] LABS: Amphetamine Urine VISTA NEGATIVE (<1000 ng/mL); Barbiturate Urine VISTA NEGATIVE (< 200 ng/mL); Benzodiazepine Urine VISTA NEGATIVE (< 200 ng/mL); Cocaine Urine VISTA NEGATIVE (< 300 ng/mL); Ecstacy Urine VISTA NEGATIVE (< 500 ng/mL); Methadone Urine VISTA NEGATIVE (< 300 ng/mL); PCP Urine VISTA NEGATIVE (< 25 ng/mL); THC Urine VISTA NEGATIVE (< 50 ng/mL); Vista UDS pH Range 5
== END ==
PROVIDERS: Family Provider Family Medicine; PCP Family Medicine; Visit Provider Anesthesiology Pain Medicine
DX: F11.20 Opioid dependence, uncomplicated (principal)
CPT/HCPCS: 80307

== ENCOUNTER → 2018-01-07 13:08 | Outpatient (CLI) | payer MEDICARE, SELFPAY ==
[2018-01-07 14:22] LABS: Absolute Neutrophil Count 9.3 X10^3/uL (2.0-7.7); Basophil# 0.01 X10^3/uL; Basophil% 0.1 % (0-1); Eosinophil# 0.24 X10^3/uL; Eosinophils% 2.1 % (0-5); Hematocrit 34.1 % (37-47); Hemoglobin 10.6 g/dl (12.0-15.0); Lymphocyte % 12.1 % (19-41); Mean Corp Hgb Conc 31.1 g/gl (32-36); Mean Corpuscular Hgb 26.5 pg (27.0-32.0); Mean Corpuscular Volume 85.3 fL (81-99); Mean Platelet Vol. 9.6 fl (6.2-12.0); Monocyte# 0.63 X10^3/uL; Monocyte% 5.4 % (0-10); Neutrophil # 9.26 X10^3/uL (2.7-7.7); Platelet Count 233 K/mm3 (150-450); RBC Distribution Width CV 19.7 % (11.6-14.6); White Blood Count 11.6 K/mm3 (4.4-11.0)
[2018-01-07 14:35] LABS: POSITIVE COUNT NO; POSITIVE DIFFERENTIAL NO; POSITIVE MORPHOLOGY NO
[2018-01-07 14:40] LABS: ALB/GLOB Ratio 0.9 RATIO (0.9-2.4); AST(SGOT) 16 U/L (15-37); Alanine Aminotransfer ALT/SGPT 17 U/L (13-56); Albumin, Serum 3.2 g/dL (3.2-5.0); Alkaline Phosphatase 70 U/L (45-117); Anion Gap 7 (5-15); BUN 12 mg/dL (7-18); BUN/Creat Ratio 10.3 RATIO (10-20); Calcium,Total 9.2 mg/dL (8.5-10.1); Chloride 103 mmol/L (98-107); Creatinine, Serum 1.17 mg/dL (0.55-1.02); EST Glomerular Filtration Rate 47 mL/min (>60); Est Glom Filt Rate - Afr Amer 57 mL/min (>60); Globulin 3.7 g/dL (2.2-4.2); Glucose 102 mg/dL (74-106); Potassium 4.1 mmol/L (3.5-5.1); Protein, Total 6.9 g/dL (6.4-8.2); Sodium Level 138 mmol/L (136-145)
== END ==
PROVIDERS: Family Provider Family Medicine; PCP Family Medicine; Visit Provider Internal Medicine Rheumatology
DX: L40.59 Other psoriatic arthropathy (principal); Z79.899 Other long term (current) drug therapy; L40.8 Other psoriasis; M79.7 Fibromyalgia; M17.0 Bilateral primary osteoarthritis of knee; K21.0 Gastro-esophageal reflux disease with esophagitis; M47.897 Other spondylosis, lumbosacral region; M47.892 Other spondylosis, cervical region; Z85.42 Personal history of malignant neoplasm of other parts of uterus
CPT/HCPCS: 36415; 80053; 85025

== ENCOUNTER → 2018-01-23 10:57 | Outpatient (CLI) | payer MEDICARE, SELFPAY ==
[2018-01-23 11:01] LABS: Bacteria 0 SEEN /hpf (None Seen); Mucous, Urine 0 SEEN /hpf (<or=2+); Red Blood Cells-Urine 0 SEEN /hpf (0-5); White Blood Cells 0 SEEN /hpf (0-5)
[2018-01-23 12:20] LABS: Color, Urine Yellow (Yellow); Glucose, Dipstick Normal (Normal); Ketone-Dipstick Negative (Negative); Leukocyte Esterase-Dipstick 25 /ul (Negative); Nitrite-Dipstick Negative (Negative); Occult Blood-Urine Negative /ul (Negative); Protein-Dipstick Negative (Negative); Urine Bilirubin Dipstick Negative (Negative); Urine Clarity Clear (Clear); Urine Urobilinogen Normal (Normal)
[2018-01-23 12:27] LABS: Squamous Epithelial Cells - UA 0-5 SEEN /hpf (5-10)
== END ==
PROVIDERS: Family Provider Family Medicine; PCP Family Medicine; Visit Provider Family Medicine
DX: N39.0 Urinary tract infection, site not specified (principal)
CPT/HCPCS: 81001; 87086; 87088

== ENCOUNTER → 2018-02-09 14:34 | Outpatient (CLI) | payer MEDICARE, SELFPAY ==
[2018-02-09 15:43] LABS: Absolute Lymphocyte Count 0.94 X10^3/ul (0.83-4.51); Absolute Neutrophil Count 6.5 X10^3/uL (2.0-7.7); Basophil# 0.01 X10^3/uL; Basophil% 0.1 % (0-1); Eosinophil# 0.26 X10^3/uL; Eosinophils% 3.1 % (0-5); Hematocrit 32.9 % (37-47); Hemoglobin 9.9 g/dl (12.0-15.0); Lymphocyte # 0.94 X10^3/ul (4.0); Lymphocyte % 11.1 % (19-41); Mean Corp Hgb Conc 30.1 g/gl (32-36); Mean Corpuscular Hgb 26.7 pg (27.0-32.0); Mean Corpuscular Volume 88.7 fL (81-99); Mean Platelet Vol. 9.6 fl (6.2-12.0); Monocyte# 0.69 X10^3/uL; Monocyte% 8.2 % (0-10); Neutrophil # 6.53 X10^3/uL (2.7-7.7); Neutrophil % 77.3 % (47-70); Platelet Count 229 K/mm3 (150-450); RBC Distribution Width CV 18.3 % (11.6-14.6); RBC Distribution Width SD 60.2 fl (35.1-43.9); Red Blood Count 3.71 M/mm3 (4.2-5.4); White Blood Count 8.5 K/mm3 (4.4-11.0)
[2018-02-09 15:46] LABS: ALB/GLOB Ratio 0.9 RATIO (0.9-2.4); AST(SGOT) 13 U/L (15-37); Alanine Aminotransfer ALT/SGPT 21 U/L (13-56); Albumin, Serum 2.8 g/dL (3.2-5.0); Alkaline Phosphatase 67 U/L (45-117); Anion Gap 7 (5-15); BUN 14 mg/dL (7-18); BUN/Creat Ratio 16.6 RATIO (10-20); Calcium,Total 8.3 mg/dL (8.5-10.1); Chloride 107 mmol/L (98-107); Creatinine, Serum 0.84 mg/dL (0.55-1.02); EST Glomerular Filtration Rate 69 mL/min (>60); Est Glom Filt Rate - Afr Amer 84 mL/min (>60); Globulin 3.2 g/dL (2.2-4.2); Glucose 99 mg/dL (74-106); Potassium 4.2 mmol/L (3.5-5.1); Sodium Level 142 mmol/L (136-145)
[2018-02-09 16:03] LABS: POSITIVE COUNT NO; POSITIVE DIFFERENTIAL NO; POSITIVE MORPHOLOGY NO
== END ==
PROVIDERS: Family Provider Family Medicine; PCP Family Medicine; Visit Provider Internal Medicine Rheumatology
DX: L40.59 Other psoriatic arthropathy (principal); Z79.899 Other long term (current) drug therapy; L40.8 Other psoriasis; M79.7 Fibromyalgia; M17.0 Bilateral primary osteoarthritis of knee; K21.0 Gastro-esophageal reflux disease with esophagitis; M47.897 Other spondylosis, lumbosacral region; M47.892 Other spondylosis, cervical region; Z85.42 Personal history of malignant neoplasm of other parts of uterus
CPT/HCPCS: 36415; 80053; 85025

== ENCOUNTER → 2018-02-16 16:33 | Outpatient (CLI) | payer MEDICARE, SELFPAY | PROVIDERS: Family Provider Family Medicine; PCP Family Medicine; Visit Provider Family Medicine | DX: N39.0 Urinary tract infection, site not specified (principal) | CPT/HCPCS: 87086; 87088 ==

== ENCOUNTER → 2018-03-11 15:32 | Outpatient (CLI) | payer MEDICARE, SELFPAY ==
[2018-03-11 18:36] LABS: Prolactin 15.2 ng/mL; Thyroid Stim Hormone (TSH) 2.17 uIU/mL (0.358-3.74)
== END ==
PROVIDERS: Family Provider Family Medicine; PCP Family Medicine; Visit Provider Family Medicine
DX: N64.4 Mastodynia (principal)
CPT/HCPCS: 36415; 84146; 84439; 84443

== ENCOUNTER → 2018-05-08 15:08 | Outpatient (CLI) | payer MEDICARE, SELFPAY ==
[2018-05-08 17:47] LABS: ALB/GLOB Ratio 0.9 RATIO (0.9-2.4); AST(SGOT) 22 U/L (15-37); Alanine Aminotransfer ALT/SGPT 21 U/L (13-56); Albumin, Serum 3.3 g/dL (3.2-5.0); Alkaline Phosphatase 82 U/L (45-117); Anion Gap 10 (5-15); BUN 19 mg/dL (7-18); BUN/Creat Ratio 16.5 RATIO (10-20); Calcium,Total 8.7 mg/dL (8.5-10.1); Chloride 105 mmol/L (98-107); Creatinine, Serum 1.15 mg/dL (0.55-1.02); EST Glomerular Filtration Rate 48 mL/min (>60); Est Glom Filt Rate - Afr Amer 58 mL/min (>60); Globulin 3.6 g/dL (2.2-4.2); Glucose 135 mg/dL (74-106); Potassium 4.3 mmol/L (3.5-5.1); Protein, Total 6.9 g/dL (6.4-8.2); Sodium Level 139 mmol/L (136-145)
[2018-05-08 18:25] LABS: Absolute Lymphocyte Count 0.96 X10^3/ul (0.83-4.51); Absolute Neutrophil Count 8.9 X10^3/uL (2.0-7.7); Basophil# 0.02 X10^3/uL; Basophil% 0.2 % (0-1); Eosinophil# 0.45 X10^3/uL; Hematocrit 38.6 % (37-47); Hemoglobin 11.5 g/dl (12.0-15.0); Lymphocyte # 0.96 X10^3/ul (4.0); Lymphocyte % 8.5 % (19-41); Mean Corp Hgb Conc 29.8 g/gl (32-36); Mean Corpuscular Hgb 24.8 pg (27.0-32.0); Mean Corpuscular Volume 83.2 fL (81-99); Mean Platelet Vol. 9.9 fl (6.2-12.0); Monocyte# 0.98 X10^3/uL; Monocyte% 8.6 % (0-10); Neutrophil # 8.93 X10^3/uL (2.7-7.7); Neutrophil % 78.6 % (47-70); Platelet Count 278 K/mm3 (150-450); RBC Distribution Width SD 48.6 fl (35.1-43.9); Red Blood Count 4.64 M/mm3 (4.2-5.4); White Blood Count 11.4 K/mm3 (4.4-11.0)
[2018-05-08 18:33] LABS: POSITIVE COUNT NO; POSITIVE DIFFERENTIAL NO; POSITIVE MORPHOLOGY NO
== END ==
PROVIDERS: Family Provider Family Medicine; PCP Family Medicine; Referring Provider Internal Medicine Rheumatology; Visit Provider Internal Medicine Rheumatology
DX: L40.59 Other psoriatic arthropathy (principal); Z79.899 Other long term (current) drug therapy; L40.8 Other psoriasis; M79.7 Fibromyalgia; M17.0 Bilateral primary osteoarthritis of knee; K21.0 Gastro-esophageal reflux disease with esophagitis; M47.897 Other spondylosis, lumbosacral region; M47.892 Other spondylosis, cervical region; Z85.42 Personal history of malignant neoplasm of other parts of uterus
CPT/HCPCS: 36415; 80053; 85025

== ENCOUNTER → 2018-05-19 12:31 | Outpatient (CLI) | payer MEDICARE, SELFPAY ==
--- NOTE | 2018-05-19 12:38 | RAD_ITS ---
STUDY: X-RAY - LEFT SHOULDER REASON FOR EXAM: Female, 82 years old. Left shoulder pain, chronic TECHNIQUE: 4 view(s) of the shoulder. COMPARISON: None. FINDINGS: There is mild degenerative arthrosis of the glenohumeral articulation. There is degenerative arthrosis of the acromioclavicular joint without inferior osseous spur formation. Normal acromion. Normal humeral head and visualized proximal humerus. The soft tissue structures are unremarkable. Normal visualized pulmonary apex. RAD/Shoulder min 2 Views IMPRESSION: Mild degenerative changes without acute findings Electronically Signed: Eris Valadez DO at 10:51 EST Tel , Service support ,
--- NOTE | 2018-05-19 12:38 | RAD_ITS ---
STUDY: X-RAY - RIGHT SHOULDER REASON FOR EXAM: Female, 82 years old. Right shoulder pain TECHNIQUE: 4 view(s) of the shoulder. COMPARISON: None. FINDINGS: There is mild degenerative arthrosis of the glenohumeral articulation. There is degenerative arthrosis of the acromioclavicular joint without inferior osseous spur formation. Normal acromion. Prominent glenohumeral spur. Normal humeral head and visualized proximal humerus. The soft tissue structures are unremarkable. Normal visualized pulmonary apex. RAD/Shoulder min 2 Views IMPRESSION: Degenerative changes as above Electronically Signed: Eris Valadez DO at 10:52 EST Tel , Service support ,
--- OUTSIDE RECORDS SUMMARY | 2018-07-01 04:53 | XMS RPT_ITS ---
:1935 Author Organization OHIP Support Name Relationship Address Phone R Unavailable Unavailable Unavailable JORGE LUISIVÁN Unavailable [address] + [place] [address] R Unavailable Unavailable Unavailable JORGE LUISIVÁN Unavailable [address] + [place] [address] R Unavailable Unavailable Unavailable JORGE LUISIVÁN Unavailable [address] + [place] [address] R Unavailable Unavailable Unavailable JORGE LUISIVÁN Unavailable [address] + [place] [address] R Unavailable Unavailable Unavailable JORGE LUISIVÁN Unavailable [address] + [place] [address] R Unavailable Unavailable Unavailable JORGE LUISIVÁN Unavailable [address] + [place] [address] R Unavailable Unavailable Unavailable JORGE LUISIVÁN Unavailable [address] + [place] [address] R Unavailable Unavailable Unavailable JORGE LUISIVÁN Unavailable [address] + [place] [address] R Unavailable Unavailable Unavailable JORGE LUISIVÁN Unavailable [address] + [place] [address] R Unavailable Unavailable Unavailable JORGE LUISIVÁN Unavailable [address] + [place] [address] R Unavailable Unavailable Unavailable JORGE LUIS IVÁN Unavailable [address] + [place] [address] R Unavailable Unavailable Unavailable JORGE LUISIVÁN Unavailable [address] + [place] [address] R Unavailable Unavailable Unavailable IVÁN KANG Unavailable [address] + [place] [address] R Unavailable Unavailable Unavailable JORGE LUIS, IVÁN Unavailable [address] + [place] [address] R Unavailable Unavailable Unavailable IVÁN KANG Unavailable [address] + [place] [address] R Unavailable Unavailable Unavailable IVÁN KANG Unavailable [address] + [place] [address] R Unavailable Unavailable Unavailable IVÁN KANG Unavailable [address] + [place] [address] R Unavailable Unavailable Unavailable IVÁN KANG Unavailable [address] + [place] [address] Care Team Providers Name Role Phone Breanne Tam Attending Unavailable Vellanarpit, Breanne Referring Unavailable Katie, Yony Primary Care Unavailable Anel, Breanne Attending Unavailable Anel, Breanne Referring Unavailable [facility], Yony Primary Care Unavailable [facility], Yony Primary Care Unavailable Lesli, Christoph Admitting Unavailable Emil Tamez Attending Unavailable Lesli, Christoph Admitting Unavailable Katie, Yony Primary Care Unavailable Lesli, Christoph Consulting Unavailable Blair Vargas Attending Unavailable Lesli, Christoph Admitting Unavailable Emil Tamez Attending Unavailable Katie, Yony Primary Care Unavailable Emil Tamez Consulting Unavailable Lesli, Christoph Admitting Unavailable Emil Tamez Attending Unavailable [facility], Yony Primary Care Unavailable Emil Tamez Consulting Unavailable Katie, Yony Primary Care Unavailable Alicia Blair Admitting Unavailable Simon Alvarenga Attending Unavailable Blair Vargas Admitting Unavailable Blair Vargas Attending Unavailable [facility], Yony Primary Care Unavailable Blair Vargas Consulting Unavailable Alicia Blair Admitting Unavailable Simon Alvarenga Attending Unavailable [facility], Yony Primary Care Unavailable Simon Alvarenga Consulting Unavailable Daphnie Negron Attending Unavailable Daphnie Negron Referring Unavailable Katie, Yony Primary Care Unavailable Ericlanarpit, Breanne Attending Unavailable Anel, Breanne Referring Unavailable [facility], Yony Primary Care Unavailable Yony Wilson Attending Unavailable Katie, Yony Primary Care Unavailable Ericlanki, Breanne Attending Unavailable Ericlanarpit, Breanne Referring Unavailable [facility], Yony Primary Care Unavailable Katie Yony Attending Unavailable [facility], Yony Primary Care Unavailable Katie, Yony Attending Unavailable Katie, Yony Primary Care Unavailable AnelBreanne Attending Unavailable Anel Breanne Referring Unavailable Yony Wilson Primary Care Unavailable Daphnie Negron Attending Unavailable Daphnie Negron Referring Unavailable Yony Wilson Primary Care Unavailable Yony Wilson Primary Care Unavailable sIac Concepcion Attending Unavailable PROBLEMS PROBLEMS DATE TYPE CONDITION / CODE ATTENDING STATUS SOURCE 05/08/2018 Unknown 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, 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 / Hospital L40.59(ICD-10) Repository 05/08/2018 Unknown Z79.899 - Other long Anel Breanne Active [place] term (current) drug Community therapy / Hospital Z79.899(ICD-10) Repository 05/08/2018 Unknown L40.8 - Other Vellanki, Breanne Active [place] psoriasis / Community L40.8(ICD-10) Hospital Repository 05/08/2018 Unknown M79.7 - Fibromyalgia Ericlanarpit Breanne Active [facility] / M79.7(ICD-10) Community Hospital Repository 05/08/2018 Unknown 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 / M17.0(ICD-10) Repository 05/08/2018 Unknown K21.0 - Vellanarpit Breanne Active [place] Gastro-esophageal Community reflux disease with Hospital esophagitis / Repository K21.0(ICD-10) 05/08/2018 Unknown M47.897 - Other [place]ellanki Breanne Active [place] spondylosis, Community lumbosacral region / Hospital M47.897(ICD-10) Repository 05/08/2018 Unknown M47.892 - Other [place]i Breanne Active [place] spondylosis, Community cervical region / Hospital M47.892(ICD-10) Repository 05/08/2018 Unknown Z85.42 - Personal Vellanarpit Breanne Active [place] 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 / Repository Z85.42(ICD-10) 02/16/2018 Unknown N39.0 - Urinary Yony Wilson Active [place] tract infection, Community site not specified / Hospital N39.0(ICD-10) Repository 12/30/2017 Unknown F11.20 - Opioid BasalDaphnie parsons Active [place] dependence, Community uncomplicated / Hospital F11.20(ICD-10) Repository PROCEDURES PROCEDURES No Procedure Records FoundRESULTS RESULTS SHOULDER MIN 2 VIEWS Observed: 05/19/2018 Status: F Source: [place] 12:38 PM [facility] REPOSITORY [facility] Imaging Services [address] [place] [address] Shoulder min 2 Views MR#: [id number] Acct: [id number] Name: QASIM KANG Rep #: [id number] : 1935 F 82 From: Eris Valadez DO PCP: Yony Wilson MD Status: REG CLI Study: Shoulder min 2 Views Date of Exam: 05/19/18 Exam# [id number] Ordering Dr: Daphnie Negron MD STUDY: X-RAY - LEFT SHOULDER REASON FOR EXAM: Female, 82 years old. Left shoulder pain, chronic TECHNIQUE: 4 view(s) of the shoulder. COMPARISON: None. FINDINGS: There is mild degenerative arthrosis of the glenohumeral articulation. There is degenerative arthrosis of the acromioclavicular joint without inferior osseous spur formation. Normal acromion. Normal humeral head and visualized proximal humerus. The soft tissue structures are unremarkable. Normal visualized pulmonary apex. RAD/Shoulder min 2 Views IMPRESSION: Mild degenerative changes without acute findings Electronically Signed: Eris Valadez DO at 10:51 EST Tel , Service support , CC: Daphnie Negron MD; Yony Wilson MD Vacuum Metalizing Supervisor: Signed SHOULDER MIN 2 VIEWS Observed: 05/19/2018 Status: F Source: [place] 12:38 PM [facility] REPOSITORY [facility] Imaging Services [address] [place] [address] Shoulder min 2 Views MR#: [id number] Acct: [id number] Name: QASIM KANG Rep #: [id number] : 1935 F 82 From: Eris Valadez DO PCP: Yony Wilson MD Status: REG CLI Study: Shoulder min 2 Views Date of Exam: 05/19/18 Exam# [id number] Ordering Dr: Daphnie Negron MD STUDY: X-RAY - RIGHT SHOULDER REASON FOR EXAM: Female, 82 years old. Right shoulder pain TECHNIQUE: 4 view(s) of the shoulder. COMPARISON: None. FINDINGS: There is mild degenerative arthrosis of the glenohumeral articulation. There is degenerative arthrosis of the acromioclavicular joint without inferior osseous spur formation. Normal acromion. Prominent glenohumeral spur. Normal humeral head and visualized proximal humerus. The soft tissue structures are unremarkable. Normal visualized pulmonary apex. RAD/Shoulder min 2 Views IMPRESSION: Degenerative changes as above Electronically Signed: Eris Valadez DO at 10:52 EST Tel , Service support , CC: Daphnie Negron MD; Yony Wilson MD Vac[employer] Supervisor: Signed COMPREHENSIVE METABOLIC Collected: 05/08/2018 Status: F Source: [facility] 3:16 PM [facility] REPOSITORY TYPE CODE TESTS RESULT OUT OF RANGE REFERENCE UNITS LAB L501.0100 74-106 mg/dL High GLU 135 Result Comment: Fasting Glucose result greater than or equal to 126 mg/dL suggests DIABETES MELLITUS per A.D.A. criteria. Please note revised GLUCOSE reference range effective 2017. LAB L501.1000 7-18 mg/dL High BUN 19 LAB L501.1100 0.55-1.02 mg/dL High CREAT,SERUM 1.15 Result Comment: The validity of the calculated GFR AND GFRAA in patients over 70 years has not been determined. Clinical correlation is essential. LAB L501.1110 >60 mL/min Low EST GFR 48 Result Comment: Non- GFR Calc LAB L501.1115 >60 mL/min Low EST GFR - AA 58 Result Comment: GFR Calc LAB L501.1300 10-20 RATIO Normal BUN/CRE 16.5 LAB L501.1500 6.4-8.2 g/dL T Normal PROT 6.9 LAB L501.1800 3.2-5.0 g/dL Normal ALB 3.3 LAB L501.1950 2.2-4.2 g/dL Normal GLOB 3.6 LAB L501.2000 0.9-2.4 RATIO Normal A/G 0.9 LAB L501.2200 8.5-10.1 mg/dL CA Normal 8.7 LAB L501.4100 15-37 U/L Normal AST 22 Result Comment: Slight Hemolysis, Result may be falsely increased. LAB L501.4305 45-117 U/L Normal ALK P 82 LAB L501.4405 13-56 U/L Normal ALT 21 LAB L501.4600 0.20-1.00 mg/dL Normal T BILI 0.40 LAB L501.5300 136-145 mmol/L Normal NA 139 LAB L501.5600 3.5-5.1 mmol/L Normal K 4.3 Result Comment: Slight Hemolysis, Result may be falsely increased. LAB L501.5900 98-107 mmol/L Normal CL 105 LAB L501.6100 21.0-32.0 mmol/L Normal CO2 24.0 LAB L501.6200 5-15 Normal GAP 10 Performed By: #### L500.4050 #### [facility] [address] [place], [place], [address] CBC W/DIFF, AUTOMATED Collected: 05/08/2018 Status: F Source: [place] 3:16 PM [facility] REPOSITORY TYPE CODE TESTS RESULT OUT OF RANGE REFERENCE UNITS LAB L100.1000 4.4-11.0 K/mm3 High WBC 11.4 LAB L100.1200 4.2-5.4 M/mm3 Normal RBC 4.64 LAB L100.1300 12.0-15.0 g/dl Low HGB 11.5 LAB L100.1400 37-47 % Normal HCT 38.6 LAB L100.1500 81-99 fL Normal MCV 83.2 LAB L100.1600 27.0-32.0 pg Low MCH 24.8 LAB L100.1700 32-36 g/gl Low MCHC 29.8 LAB L100.1810 11.6-14.6 % High RDW CV 16.0 LAB L100.1820 35.1-43.9 fl High RDW SD 48.6 LAB L100.1900 150-450 K/mm3 Normal PLT 278 LAB L100.2000 6.2-12.0 fl Normal MPV 9.9 LAB L100.2100 47-70 % High NEUT% 78.6 LAB L100.2200 19-41 % Low LY% 8.5 LAB L100.2300 0-10 % Normal MONO% 8.6 LAB L100.2400 0-5 % Normal EO% 4.0 LAB L100.2500 0-1 % Normal BASO% 0.2 LAB L100.2550 0.0-0.9 % Normal IM GRAN % 0.100 Result Comment: IG% - Immature Granulocytes (promyelocytes, myelocytes and metamyelocytes) > 1% indicates that a LEFT SHIFT is Present. LAB L100.2620 2.0-7.7 X10 3/uL High Absolute Neut 8.9 LAB L100.2720 0.83-4.51 X10 3/ul Normal Absolute Lymph 0.96 Performed By: #### L100.0100 #### [facility] [address] [place] [address], [address] THYROID STIM HORMONE Collected: 03/11/2018 Status: F Source: [place] ([facility]) 3:34 PM [facility] REPOSITORY TYPE CODE TESTS RESULT OUT OF RANGE REFERENCE UNITS LAB L501.9520 0.358-3.74 uIU/mL Normal TSH 2.17 Performed By: #### L501.9520, L506.0400, L3100.5420 #### [facility] [place], [place], [address] T4 FREE DIRECT Collected: 03/11/2018 Status: F Source: [place] 3:34 PM [facility] REPOSITORY TYPE CODE TESTS RESULT OUT OF RANGE REFERENCE UNITS LAB L506.0400 0.76-1.46 ng/dL Normal T4 FREE 0.80 DIRECT Performed By: #### L501.9520, L506.0400, L3100.5420 #### [facility] [address] [place], [address] PROLACTIN Collected: 03/11/2018 Status: F Source: [place] 3:34 PM [facility] REPOSITORY TYPE CODE TESTS RESULT OUT OF RANGE REFERENCE UNITS LAB L3100.5420 ng/mL Normal PROLACTIN 15.2 Result Comment: NORMAL REFERENCE RANGES FEMALE NON- 2.2 - 30.3 ng/mL 8.1 - 347.6 ng/mL POST-MENOPAUSAL 0.7 - 31.5 ng/mL MALE 2.5 - 17.4 ng/mL NEW TEST METHOD AND REFERENCE RANGES NOVEMBER 11, 2011 Performed By: #### L501.9520, L506.0400, L3100.5420 #### [facility] [address] [place], [address] Observed: 02/16/2018 Status: F Source: [place] CULTURE, URINE 4:34 PM [facility] REPOSITORY COLLECTED AT HOME AND DROPPED OFF IN OFFICE. DOCUMENT CONTROL CLERK COLLECTED FROM PT. Urine Culture ORGANISM 1: Mixed Gram Pos AND Gram Neg Org [place] Count >100,000 MIX CULTURE Mixed contaminants. Submit a new specimen if indicated. Performed By: #### M100.0650 #### [facility] [address] [place], [address] COMPREHENSIVE METABOLIC Collected: 02/09/2018 Status: F Source: [place] PROFIL 2:37 PM [facility] REPOSITORY TYPE CODE TESTS RESULT OUT OF RANGE REFERENCE UNITS LAB L501.0100 74-106 mg/dL Normal GLU 99 Result Comment: Please note revised GLUCOSE reference range effective 2017. LAB L501.1000 7-18 mg/dL Normal BUN 14 LAB L501.1100 0.55-1.02 mg/dL Normal CREAT,SERUM 0.84 Result Comment: The validity of the calculated GFR AND GFRAA in patients over 70 years has not been determined. Clinical correlation is essential. LAB L501.1110 >60 mL/min Normal EST GFR 69 Result Comment: Non- GFR Calc LAB L501.1115 >60 mL/min Normal EST GFR - AA 84 Result Comment: GFR Calc LAB L501.1300 10-20 RATIO Normal BUN/CRE 16.6 LAB L501.1500 6.4-8.2 g/dL Low T PROT 6.0 LAB L501.1800 3.2-5.0 g/dL Low ALB 2.8 LAB L501.1950 2.2-4.2 g/dL Normal GLOB 3.2 LAB L501.2000 0.9-2.4 RATIO Normal A/G 0.9 LAB L501.2200 8.5-10.1 mg/dL Low CA 8.3 LAB L501.4100 15-37 U/L Low AST 13 LAB L501.4305 45-117 U/L Normal ALK P 67 LAB L501.4405 13-56 U/L Normal ALT 21 LAB L501.4600 0.20-1.00 mg/dL T Normal BILI 0.30 LAB L501.5300 136-145 mmol/L NA Normal 142 LAB L501.5600 3.5-5.1 mmol/L K Normal 4.2 LAB L501.5900 98-107 mmol/L CL Normal 107 LAB L501.6100 21.0-32.0 mmol/L Normal CO2 28.0 LAB L501.6200 5-15 Normal GAP 7 Performed By: #### L500.4050 #### [facility] [address] [place], [address] CBC W/DIFF, AUTOMATED Collected: 02/09/2018 Status: F Source: [place] 2:37 PM [facility] REPOSITORY TYPE CODE TESTS RESULT OUT OF RANGE REFERENCE UNITS LAB L100.1000 4.4-11.0 K/mm3 Normal WBC 8.5 LAB L100.1200 4.2-5.4 M/mm3 Low RBC 3.71 LAB L100.1300 12.0-15.0 g/dl Low HGB 9.9 LAB L100.1400 37-47 % Low HCT 32.9 LAB L100.1500 81-99 fL Normal MCV 88.7 LAB L100.1600 27.0-32.0 pg Low MCH 26.7 LAB L100.1700 32-36 g/gl Low MCHC 30.1 LAB L100.1810 11.6-14.6 % High RDW CV 18.3 LAB L100.1820 35.1-43.9 fl High RDW SD 60.2 LAB L100.1900 150-450 K/mm3 Normal PLT 229 LAB L100.2000 6.2-12.0 fl Normal MPV 9.6 LAB L100.2100 47-70 % High NEUT% 77.3 LAB L100.2200 19-41 % Low LY% 11.1 LAB L100.2300 0-10 % Normal MONO% 8.2 LAB L100.2400 0-5 % Normal EO% 3.1 LAB L100.2500 0-1 % Normal BASO% 0.1 LAB L100.2550 0.0-0.9 % Normal IM GRAN % 0.200 Result Comment: IG% - Immature Granulocytes (promyelocytes, myelocytes and metamyelocytes) > 1% indicates that a LEFT SHIFT is Present. LAB L100.2620 2.0-7.7 X10 3/uL Normal Absolute Neut 6.5 LAB L100.2720 0.83-4.51 X10 3/ul Normal Absolute Lymph 0.94 Performed By: #### L100.0100 #### [facility] [address] [place], [place], [address] URINALYSIS, COMPLETE Collected: 01/23/2018 Status: F Source: [place] 10:59 AM [facility] REPOSITORY Order Comment: How was Urine Obtained? CLEAN CATCH TYPE CODE TESTS RESULT OUT OF RANGE REFERENCE UNITS LAB L400.3000 Yellow COLOR Normal Yellow LAB L400.3050 Clear Normal CLARITY Clear LAB L400.3200 Normal mg/dl Normal GLUCOSE, UR Normal LAB L400.3300 Negative mg/dL Normal BILIRUBIN URINE Negative LAB L400.3400 Negative mg/dl Normal KETONE UR Negative LAB L400.3465 1.002-1.030 Normal SP.GR. DIPSTX 1.010 LAB L400.3550 5.0 - 8.0 pH UR Normal 6.0 LAB L400.3600 Negative mg/dl PROT Normal DIPSTX Negative LAB L400.3700 Normal mg/dl Normal UROBILI Normal LAB L400.3750 Negative Normal NITRITE UR Negative LAB L400.3780 Negative /ul Normal OCCULT BLOOD-UR Negative LAB L400.3800 Negative /ul High LEUK 25 ESTERASE LAB L400.4050 0-5 /hpf WBC 0 Normal SEEN LAB L400.4100 0-5 /hpf 0 Normal RBC-UA SEEN LAB L400.4150 5-10 /hpf SQUAM Normal EPI 0-5 SEEN LAB L400.4300 None Seen /hpf 0 Normal BACTERIA SEEN LAB L400.4350 <or=2+ /hpf 0 Normal MUCUS, URINE SEEN Performed By: #### L400.0001 #### [facility] [address] [place], [address] Observed: 01/23/2018 Status: F Source: [place] CULTURE, URINE 10:59 AM [facility] REPOSITORY Urine Culture Below infection level. Possible skin contamination. ORGANISM 1: Mixed Gram Positive Organisms [place] Count 1000-10,000 Performed By: #### M100.0650 #### [facility] [address] [facility] [place], [address] CBC W/DIFF, AUTOMATED Collected: 01/07/2018 Status: F Source: [place] 1:11 PM [facility] REPOSITORY TYPE CODE TESTS RESULT OUT OF RANGE REFERENCE UNITS LAB L100.1000 4.4-11.0 K/mm3 High WBC 11.6 LAB L100.1200 4.2-5.4 M/mm3 Low RBC 4.00 LAB L100.1300 12.0-15.0 g/dl Low HGB 10.6 LAB L100.1400 37-47 % Low HCT 34.1 LAB L100.1500 81-99 fL Normal MCV 85.3 LAB L100.1600 27.0-32.0 pg Low MCH 26.5 LAB L100.1700 32-36 g/gl Low MCHC 31.1 LAB L100.1810 11.6-14.6 % High RDW CV 19.7 LAB L100.1820 35.1-43.9 fl High RDW SD 58.0 LAB L100.1900 150-450 K/mm3 Normal PLT 233 LAB L100.2000 6.2-12.0 fl Normal MPV 9.6 LAB L100.2100 47-70 % High NEUT% 80.0 LAB L100.2200 19-41 % Low LY% 12.1 LAB L100.2300 0-10 % Normal MONO% 5.4 LAB L100.2400 0-5 % Normal EO% 2.1 LAB L100.2500 0-1 % Normal BASO% 0.1 LAB L100.2550 0.0-0.9 % Normal IM GRAN % 0.300 Result Comment: IG% - Immature Granulocytes (promyelocytes, myelocytes and metamyelocytes) > 1% indicates that a LEFT SHIFT is Present. LAB L100.2620 2.0-7.7 X10 3/uL High Absolute Neut 9.3 LAB L100.2720 0.83-4.51 X10 3/ul Normal Absolute Lymph 1.40 Performed By: #### L100.0100 #### [facility] [address] [place], [address] COMPREHENSIVE METABOLIC Collected: 01/07/2018 Status: F Source: [facility] 1:11 PM [facility] REPOSITORY TYPE CODE TESTS RESULT OUT OF RANGE REFERENCE UNITS LAB L501.0100 74-106 mg/dL Normal GLU 102 Result Comment: Fasting Glucose result from 100 to 125 mg/dL suggests IMPAIRED HOMEOSTASIS per A.D.A. criteria. Please note revised GLUCOSE reference range effective 2017. LAB L501.1000 7-18 mg/dL Normal BUN 12 LAB L501.1100 0.55-1.02 mg/dL High CREAT,SERUM 1.17 Result Comment: The validity of the calculated GFR AND GFRAA in patients over 70 years has not been determined. Clinical correlation is essential. LAB L501.1110 >60 mL/min Low EST GFR 47 Result Comment: Non- GFR Calc LAB L501.1115 >60 mL/min Low EST GFR - AA 57 Result Comment: GFR Calc LAB L501.1300 10-20 RATIO Normal BUN/CRE 10.3 LAB L501.1500 6.4-8.2 g/dL T Normal PROT 6.9 LAB L501.1800 3.2-5.0 g/dL Normal ALB 3.2 LAB L501.1950 2.2-4.2 g/dL Normal GLOB 3.7 LAB L501.2000 0.9-2.4 RATIO Normal A/G 0.9 LAB L501.2200 8.5-10.1 mg/dL CA Normal 9.2 LAB L501.4100 15-37 U/L Normal AST 16 LAB L501.4305 45-117 U/L Normal ALK P 70 LAB L501.4405 13-56 U/L Normal ALT 17 LAB L501.4600 0.20-1.00 mg/dL T Normal BILI 0.40 LAB L501.5300 136-145 mmol/L NA Normal 138 LAB L501.5600 3.5-5.1 mmol/L K Normal 4.1 LAB L501.5900 98-107 mmol/L CL Normal 103 LAB L501.6100 21.0-32.0 mmol/L Normal CO2 28.0 LAB L501.6200 5-15 Normal GAP 7 Performed By: #### L500.4050 #### [facility] [address] [place], [address] URINE DRUG SCREEN Collected: 12/30/2017 Status: F Source: [place] ([facility]) 1:59 PM [facility] REPOSITORY Order Comment: Comments: URINE TOXICOLOGY [id number] RUN LOWEST TEST List of Drugs Taken or Suspected? UNK TYPE CODE TESTS RESULT OUT OF RANGE REFERENCE UNITS LAB L505.0075 TO BE Normal CONFIRMED Result Comment: CONFIRMATORY TESTING FOR ALL POSITIVE URINE DRUG SCREEN RESULTS WILL ONLY BE SENT OUT UPON PHYSICIAN ORDER. VISTA Urine Drug Screen methods provide only preliminary analytical test results. A more specific alternate chemical method must be used in order to obtain a confirmed analytical result. Gas chromatography/mass spectrometery (GC/MS) is the preferred confirmatory method. Clinical consideration and professional judgement should be applied to any drug of abuse test result, particularly when preliminary positive results are used. URINE TCA TESTING MUST BE ORDERED SEPARATELY. USE TEST MNEMONIC: [facility] LAB L505.5005 VISTA UDS PH 5 Normal LAB L505.5015 <1000 ng/mL AMPHETAMINES Normal NEGATIVE LAB L505.5025 < 200 ng/mL BARBITIURATES Normal NEGATIVE LAB L505.5035 < 200 ng/mL BENZODIAZIPINE Normal NEGATIVE LAB L505.5045 < 300 ng/mL COCAINE Normal NEGATIVE LAB L505.5055 < 500 ng/mL ECSTACY Normal NEGATIVE LAB L505.5065 < 300 ng/mL METHADONE Normal NEGATIVE LAB L505.5075 < 300 High ng/mL OPIATES POSITIVE LAB L505.5085 < 25 ng/mL PCP Normal NEGATIVE LAB L505.5095 < 50 ng/mL THC Normal NEGATIVE Performed By: #### L505.5000 #### [facility] [address] [place], [address] MISCELLANEOUS LAB Collected: 12/30/2017 Status: F Source: [place] PROCEDURE 1:59 PM [facility] REPOSITORY Order Comment: Comments: URINE TOXICOLOGY [id number] RUN LOWEST TEST Test(s) Ordered: URINE TOXICOLOGY [id number] RUN LOWEST TEST TYPE CODE TESTS RESULT OUT OF RANGE REFERENCE UNITS LAB L801.[address] [facility] [place] Result Comment: [id number] 6+OXYCODONE-BUND (ng/mL) DRUG RESULT SCREEN CUTOFF ____ Amphetamines,Urine Negative ng/mL 1000 Amphetamine test includes Amphetamine and Methamphetamine. Barbiturates Negative ng/mL 200 Benzodiazepines Negative ng/mL 200 Cannabinoid Negative ng/mL 20 Cocaine (Metab) Negative ng/mL 300 Opiates Negative ng/mL 300 Opiates test includes Codeine, Morphine, Hydromorphone, Hydrocodone. Oxycodone/Oxymorphone,Urine POSITIVE ng/mL 300 Test includes Oxydodone and Oxymorphone. Oxycodone Positive Oxycodone GC/MS >3000 ng/mL 300 Oxymorphone Positive Oxymorphone GC/MS >3000 ng/mL 300 TESTING PERFORMED AT [facility]. ORIGINAL REPORT ON FILE IN LAB CONTAINS ADDITIONAL TEST SITE INFORMATION. Performed By: #### L801.1541 #### [facility] Laboratory [address] [place], [address] 12 LEAD ELECTROCARDIOGRAM Observed: 12/22/2017 Status: F Source: [place] 3:03 PM [facility] REPOSITORY [facility] Cardiovascular Services [address] [place] [address] 12 Lead EKG 12/18/17 2135 MR#: [id number] Acct: [id number] Name: QASIM KANG Rep #: [id number] : 1935 82 From: Gabriel Bills MD Attending Dr: Simon Alvarenga DO Status: DIS ROSALINE Ordering Dr: Rosita Downing MD Date: 12/18/17 Location: [facility] Sex: F C Admitted: 12/18/17 Test Reason : OVERDOSE Blood Pressure : / mmHG Vent. Rate : 062 BPM Atrial Rate : 062 BPM P-R Int : 160 ms QRS Dur : 094 ms QT Int : 450 ms P-R-T Axes : 045 -12 025 degrees QTc Int : 456 ms Normal sinus rhythm Nonspecific ST abnormality Abnormal ECG Confirmed by GABRIEL BILLS MD ([id number]), development editor ZHANG GUZMAN ([id number]) on 12/22/2017 3:03:24 PM Referred By: SHYLA Confirmed By:GABRIEL BILLS MD 12/22/17 1503 Date Gabriel Bills MD CC: Rosita Downing MD; Simon Alvarenga DO; Yony Wilson MD Signed DISCHARGE SUMMARY Observed: 12/19/2017 Status: F Source: [place] 1:51 PM [facility] Medical Records Department [address] [place] [address] Discharge Summary 12/19/17 1348 MR#: [id number] Acct: [id number] Name: QASIM KANG Rep #: [id number] : 1935 82 From: Simon Alvarenga DO PCP: Yony Wilson MD Status: ADM ROSALINE Y Location: [place] [address] Discharge Date and Diagnosis - Problem List Patient Problems: Active and Suspected Problems Toxic encephalopathy (Acute) Lethargy (Acute) Date of Admission: 12/18/17 Date of Discharge: 12/19/17 - Primary Discharge Diagnosis Active and Suspected Problems Toxic encephalopathy (Acute) Lethargy (Acute) - Secondary Discharge Diagnosis Chronic Problems Rheumatoid arthritis (Chronic) Hospital Course and Treatment Imaging Results: Clinical Impression(s) from Imaging Studies Chest X-Ray 12/18/17 21:30 IMPRESSION: Cardiac enlargement. No focal infiltrate. Electronically Signed: Hayden Corea MD at 22:06 EDT , Service support , Operations: None Procedures: None Summary of Care Provided: The patient is a 82 year old F presents with due to lethargy and sleepiness. Patient recently has been prescribed Ativan for the of her pet dog and her daughter moving away pretty much within very short order. Patient had been just started on Ativan a day or 2 prior and was not taking with Ambien but may been taking multiple at night when she just could not fall asleep. Patient was unable to be aroused and sent to the emergency room. Patient eventually did come to and has remained stable. Patient denies any suicidal ideation. Discussed with the patient about proper usage of benzodiazepines. Explained that benzodiazepines should be used only as necessary for severe anxiety and should not be used for sleep. Patient is already on sleep aid with Ambien. Patient told to take the Ativan only in on a selective basis and certainly not frequent... Patient stated that she expressed understanding of that. Vital Signs Height 1.63 m Weight: 98.4 kg Weight in Pounds 216.9 lbs Pulse Ox 94 Patient is no acute distress and afebrile. Heart is regular rate and rhythm plus S1-S2 without murmurs rubs or rubs. Lungs are clear to auscultation bilaterally. Abdomen is soft nontender nondistended normal bowel sounds with no HSM. [] Discharge Diet: No Restrictions Discharge Activity: Return to Normal Activity May resume sexual activity in: No Restrictions Call your doctor if you observe: - - somnolence. Home Medications: Medications to take at Discharge Citalopram [Celexa] 40 mg PO DAILY 07/06/15 Methotrexate 15 mg PO SA 07/06/15 Oxycodone CR [Oxycontin] 20 mg PO Q12H PRN PRN 07/06/15 Tizanidine HCl [Zanaflex] 4 mg PO Q8H PRN PRN 07/06/15 Zolpidem Tartrate [Ambien] 10 mg PO QHS 07/06/15 Esomeprazole Mag Trihydrate [Nexium] 40 mg PO DAILY 07/19/15 Folic Acid 1 mg PO DAILY@0800 07/19/15 Meloxicam [Mobic] 15 mg PO DAILY 07/19/15 Amlodipine/Valsartan [Exforge 5-320 mg Tablet] 1 each PO DAILY 06/02/17 Apremilast [Otezla] 30 mg PO BID 06/02/17 Celecoxib [Celebrex] 200 mg PO DAILY 06/02/17 Cetirizine HCl [Zyrtec] 10 mg PO QHS 06/02/17 Docusate Sodium [Colace] 100 mg PO DAILY #20 capsule 06/04/17 Nitrofurantoin Macrocrystal [Nitrofurantoin] 100 mg PO DAILY 12/18/17 Oxycodone HCl/Acetaminophen [Percocet 5-325] 1 tablet PO BID PRN 12/18/17 Theophylline [Luis Fernando-Dur] 300 mg PO DAILY 12/18/17 leucovorin tablet 15 mg PO DAILY 12/18/17 Lorazepam [Ativan] 0.5 mg PO BID PRN #0 12/19/17 Primary Care Physician: Yony Wilson MD [Primary Care Provider] - Within 2 Weeks Disposition: Home Minutes spent on discharge:: 25 Patient Condition:: Fair Medical Necessity - Tobacco Use Smoking Status: Never smoker Tobacco Use: Non-smoker Meaningful Use Info Meaningful Use Diagnoses (Choose all that apply): None applicable Code Visit OBSV E AND M: 83497 Observation care discharge 12/19/17 1351 <Electronically signed by Simon Alvarenga DO> Date Simon Toribioigner Signature (if applicable): Date CC: Simon Alvarenga DO; Yony Wilson MD Signed DISCHARGE INSTRUCTION Observed: 12/19/2017 Status: F Source: [place] 1:48 PM [facility] Medical Records Department [address] [place] [address] Instructions for Home/Discharge Instructions 12/19/17 1347 MR#: [id number] Acct: [id number] Name: QASIM KANG Rep #: [id number] : 1935 82 From: Simon Alvarenga DO PCP: Yony Wilson MD Status: ADM ROSALINE - Discharge Diagnoses Current Active Problems: Current Active and Chronic Problems Lethargy (Acute) You will use the following diet at home:: No restrictions Your food should be the consistency of: Regular Call your doctor if you observe: - - somnolence. Allergies/Adverse Reactions: Allergies Penicillins Allergy (Verified 12/19/17 00:14) Hives Medications to take at Discharge Citalopram [Celexa] 40 mg PO DAILY 07/06/15 Methotrexate 15 mg PO SA 07/06/15 Oxycodone CR [Oxycontin] 20 mg PO Q12H PRN PRN 07/06/15 Tizanidine HCl [Zanaflex] 4 mg PO Q8H PRN PRN 07/06/15 Zolpidem Tartrate [Ambien] 10 mg PO QHS 07/06/15 Esomeprazole Mag Trihydrate [Nexium] 40 mg PO DAILY 07/19/15 Folic Acid 1 mg PO DAILY@0800 07/19/15 Meloxicam [Mobic] 15 mg PO DAILY 07/19/15 Amlodipine/Valsartan [Exforge 5-320 mg Tablet] 1 each PO DAILY 06/02/17 Apremilast [Otezla] 30 mg PO BID 06/02/17 Celecoxib [Celebrex] 200 mg PO DAILY 06/02/17 Cetirizine HCl [Zyrtec] 10 mg PO QHS 06/02/17 Docusate Sodium [Colace] 100 mg PO DAILY #20 capsule 06/04/17 Nitrofurantoin Macrocrystal [Nitrofurantoin] 100 mg PO DAILY 12/18/17 Oxycodone HCl/Acetaminophen [Percocet 5-325] 1 tablet PO BID PRN 12/18/17 Theophylline [Luis Fernando-Dur] 300 mg PO DAILY 12/18/17 leucovorin tablet 15 mg PO DAILY 12/18/17 Lorazepam [Ativan] 0.5 mg PO BID PRN #0 12/19/17 Primary Care Physician: Yony Wilson MD [Primary Care Provider] - Within 2 Weeks Proposed Discharge Date: 12/19/17 12/19/17 1348 <Electronically signed by Simon Alvarenga DO> Date Simon Alvarenga DO CC: Yony Wilson MD HISTORY AND PHYSICAL Observed: 12/19/2017 Status: F Source: [facility] EXAM 1:35 AM [facility] Medical Records Department [address] [place] [address] History and Physical 12/18/17 2326 MR#: [id number] Acct: [id number] Name: QASIM KANG Rep #: [id number] : 1935 82 From: Blair Vargas DO PCP: Yony Wilson MD Status: ADM ROSALINE Y Location: [place] [address] Problem List (1) Lethargy Status: Acute History of Present Illness Date of Admission: 12/18/17 Chief Complaint: lethargy The patient is a 82 year old F who was seen in the emergency room at [facility] after being brought in by her due to lethargy and sleepiness. Patient had been given Ativan yesterday for anxiety by her PCP, it appears according to the that 12 Ativan were missing from the patient's bottle from yesterday. These are 0.5 mg Ativan since she was not taking them previously. Patient has been under stress due to the of her pet and the fact that her daughter has moved out of state recently. Patient's who was in the emergency room at the time of my examination states that the patient has not complained of feeling depressed or wanting to or harm her self. Evaluation in the emergency room included labs which were remarkable for hemoglobin of 10.1, patient's Chem panel was unremarkable, patient's urine tox screen was positive for opiates only-I feel that there was a false negative reading for benzodiazepines on this patient's urine tox screen, I have seen this before on urine tox screens were the patient has taken Ativan. On physical examination, patient appear to be drowsy, review of systems was unable to be obtained from the patient and I obtained information from the patient's who was in the ER room at the time of my exam. Patient will be placed in observation status on PCU and observe closely, I feel that she has unintentionally taken too many Ativan and she is also chronically on oxycodone for rheumatoid arthritis pain. 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 VTE Information - Inpt Only VTE Present on Admission: No VTE Mechan Device Prophylaxis: SCD's VTE Pharm Prophylaxis ordered?: No Reason prophylaxis not ordered:: Treatment Not Indicated - placed on SCD's Patient Problems: Active and Suspected Problems Lethargy (Acute) - Physical Exam General: No apparent distress, Well developed, Well nourished, Lethargic HEENT: Atraumatic, PERRLA, EOMI, Normocephalic Oral: Moist Mucosa Neck: Supple, Negative Carotid Bruits, No Nuchal Rigidity, Trachea Midline, Thyroid Normal Size and Texture Lungs: Clear to auscultation, Normal air movement, No rhonchi, No wheeze, No rales Cardiovascular: Regular rate, Regular Rhythm, Normal S1, Normal S2, No murmurs, No Ectopic Activity, PMI Normal, No rub noted, No Gallop Abdomen: Bowel Sounds Present, Soft, Non Tender, Non-Distended, No hernias noted Extremities: No clubbing, No cyanosis, No edema, Capillary Refill Less than 3 Seconds Skin: No rashes, No breakdown Musculoskeletal: No Tenderness to Palpation of Joints or Extremities Neurological: Cranial nerves II-XII grossly intact, Neuro grossly intact, Sensory exam intact to light touch and pain Psych/Mental Status: - - Patient is lethargic and somnolent, she answers some questions appropriately with prompting, she does follow commands appropriately. Vital Signs Temp Pulse Resp BP Pulse Ox 98.4 F 66 19 H 164/76 H 96 12/18/17 21:13 12/18/17 22:59 12/18/17 22:59 12/18/17 22:59 12/18/17 22:59 Oxygen Flow Rate (L/min) 2 Oxygen Delivery Method Nasal Cannula Weight: 104.326 kg Body Mass Index (BMI) 39.4 Laboratory Tests Past 24 Hrs WBC 8.2 WBC RBC Hgb Hct MCV MCH Assessment/Plan All Active Problems Lethargy (Acute) UTI (urinary tract infection) (Acute) Generalized weakness (Acute) #1 toxic encephalopathy secondary to unintentional overuse of Ativan with an overlay of chronic narcotic and muscle relaxant use-patient will be placed in observation status on PCU, she will be monitored on telemetry, she will be seen by PT and OT, her medications will be continued with the exception of her Zanaflex, Macrodantin, and Ativan #2 unintentional overdose of benzodiazepine #3 rheumatoid arthritis #4 chronic pain secondary to rheumatoid arthritis #5 anemia-etiology unclear, possibly anemia of chronic disease from rheumatoid arthritis #6 hypertension-patient will remain on her present medication #7 chronic use of theophylline-reason unknown at this time, I was not able to asked the why the patient is taking theophylline #8 recently diagnosed UTI-patient's UA in the emergency room was unremarkable, I do not feel she needs Macrodantin at this time Code Visit OBSV E AND M: 40125 Initial observation care L3 12/19/17 0135 <Electronically signed by Blair Vargas DO> Date Blair Vargas DO Cosigner Signature: Date (if applicable) CC: Blair Vargsa DO; Yony Wilson MD Signed EMERGENCY DEPARTMENT Observed: 12/18/2017 Status: F Source: [place] SUMMARY 11:05 PM [facility] Medical Records Department [address] [place] [address] Emergency Department Summary 12/18/17 2132 MR#: [id number] Acct: [id number] Name: QASIM KANG Rep #: [id number] : 1935 82 From: Rosita Downing MD PCP: Yony Wilson MD Status: REG ER - ER Visit Summary Date of Service: 12/18/17 Chief Complaint: Overdose History of Present Illness: The patient is a 82 F presenting with overdose. Patient's states she has been under a lot of stress recently. Her daughter recently moved to [place]. Her dog recently . She was seen by her primary care physician yesterday. She was prescribed Macrobid and Ativan. Today he noted that she had taken 13 Ativan. He is unsure the timeframe. The prescription was filled yesterday. She also takes OxyContin 20 mg twice daily. She has chronic pain secondary to rheumatoid arthritis. He states she has been taking this appropriately. She is drowsy but arousable. Physical Examination: Vitals are stable. Patient is afebrile. Alert no acute distress. HEENT exam is unremarkable. Neck is supple. Lungs are clear and equal bilaterally. Heart is regular rate and rhythm. Abdomen is soft nontender nondistended. Extremities are unremarkable. Skin is warm and dry. No focal neurologic deficit. Opens eyes to voice. Remainder of exam is unremarkable. Emergency Department Course and Treatment: EKG is sinus rate is 62 no acute ischemic changes. Chest x-ray shows no infiltrate. CBC unremarkable except hemoglobin 10.1. Chemistries unremarkable. Urinalysis unremarkable. Tylenol and aspirin level negative. Alcohol negative. Tox positive for opiates. Patient opens eyes to voice and follows commands. She answers questions appropriately. She denies suicidal thoughts or gesture. Will discuss with the hospitalist for observation. Disposition: Observation Impression: Benzodiazepine overdose This note was generated with Dragon dictation software. It may contain incorrect words, spelling, and punctuation that were not noted in review of the chart prior to signing ED Disposition - Plan for ED Patient: Chief Complaint: Overdose Referrals: Yony Wilson MD [Primary Care Provider] - What to do if you have Problems For any increased pain, shortness of breath, bleeding, nausea or vomiting, chest pain, or any unexpected problems, contact your Primary Care Provider. Call [facility] ([phone]) or report to the closest Emergency Room. Call 911 if necessary. 12/18/17 2305 <Electronically signed by Rosita Downing MD> Date Rosita Downing MD Cosigner Signature (If Indicated): Date CC: Yony Wilson MD URINE DRUG SCREEN Collected: 12/18/2017 Status: F Source: [place] (VISTA) 10:02 PM [facility] REPOS[facility]ORY TYPE CODE TESTS RESULT OUT OF RANGE REFERENCE UNITS LAB L505.0075 TO BE Normal CONFIRMED Result Comment: CONFIRMATORY TESTING FOR ALL POSITIVE URINE DRUG SCREEN RESULTS WILL ONLY BE SENT OUT UPON PHYSICIAN ORDER. VISTA Urine Drug Screen methods provide only preliminary analytical test results. A more specific alternate chemical method must be used in order to obtain a confirmed analytical result. Gas chromatography/mass spectrometery (GC/MS) is the preferred confirmatory method. Clinical consideration and professional judgement should be applied to any drug of abuse test result, particularly when preliminary positive results are used. URINE TCA TESTING MUST BE ORDERED SEPARATELY. USE TEST MNEMONIC: [facility] LAB L505.5005 VISTA UDS PH 8 Normal LAB L505.5015 <1000 ng/mL AMPHETAMINES Normal NEGATIVE LAB L505.5025 < 200 ng/mL BARBITIURATES Normal NEGATIVE LAB L505.5035 < 200 ng/mL BENZODIAZIPINE Normal NEGATIVE LAB L505.5045 < 300 ng/mL COCAINE Normal NEGATIVE LAB L505.5055 < 500 ng/mL ECSTACY Normal NEGATIVE LAB L505.5065 < 300 ng/mL METHADONE Normal NEGATIVE LAB L505.5075 < 300 High ng/mL OPIATES POSITIVE LAB L505.5085 < 25 ng/mL PCP Normal NEGATIVE LAB L505.5095 < 50 ng/mL THC Normal NEGATIVE Performed By: #### L505.5000 #### [facility] [address] [facility] [place], [place], [address] URINALYSIS, COMPLETE Collected: 12/18/2017 Status: F Source: [place] 10:02 PM [facility] Order Comment: How was Urine Obtained? REPAIR MILLER TO SPECIFY TYPE CODE TESTS RESULT OUT OF RANGE REFERENCE UNITS LAB L400.3000 Yellow COLOR Normal Yellow LAB L400.3050 Clear Normal CLARITY Clear LAB L400.3200 Normal mg/dl Normal GLUCOSE, UR Normal LAB L400.3300 Negative mg/dL Normal BILIRUBIN URINE Negative LAB L400.3400 Negative mg/dl Normal KETONE UR Negative LAB L400.3465 1.002-1.030 Normal SP.GR. DIPSTX 1.015 LAB L400.3550 5.0 - 8.0 pH UR Normal 8.0 LAB L400.3600 Negative mg/dl PROT Normal DIPSTX Negative LAB L400.3700 Normal mg/dl Normal UROBILI Normal LAB L400.3750 Negative Normal NITRITE UR Negative LAB L400.3780 Negative /ul Normal OCCULT BLOOD-UR Negative LAB L400.3800 Negative /ul High LEUK 25 ESTERASE LAB L400.4050 0-5 /hpf WBC Normal 0-5 SEEN LAB L400.4100 0-5 /hpf 0 Normal RBC-UA SEEN LAB L400.4150 5-10 /hpf SQUAM 0 Normal EPI SEEN LAB L400.4300 None Seen /hpf 0 Normal BACTERIA SEEN LAB L400.4350 <or=2+ /hpf 0 Normal MUCUS, URINE SEEN Performed By: #### L400.0001 #### [facility] [address] [place], [place], [address] CHEST 1 VIEW Observed: 12/18/2017 Status: F Source: [place] (PORTABLE) 9:30 PM [facility] Imaging Services [address] [place] [address] Chest 1 View (Portable) MR#: [id number] Acct: [id number] Name: QASIM KANG Rep #: [id number] : 1935 F 82 From: Hayden Corea MD PCP: Yony Wilson MD Status: PRE ER Study: Chest 1 View (Portable) Date of Exam: 12/18/17 Exam# [id number] Ordering Dr: Rosita Downing MD STUDY: X-RAY CHEST REASON FOR EXAM: Female, 82 years old. Shortness of breath. Dyspnea. TECHNIQUE: Single AP portable view of the chest. COMPARISON: June 02, 2017 FINDINGS: There are monitoring devices. The lungs are clear and expanded. There is no demonstrated pleural abnormality. There is mild cardiac enlargement. Normal mediastinum and alexa. Normal visualized pulmonary arteries. Normal visualized aortic arch and descending thoracic aorta. There is demineralization of the osseous structures. Normal visualized ribs, clavicles, and shoulders. There is no demonstrated abnormality of the visualized soft tissue structures of the upper abdomen. RAD/Chest 1 View (Portable) IMPRESSION: Cardiac enlargement. No focal infiltrate. Electronically Signed: Hayden Corea MD at 22:06 EDT , Service support , CC: Rosita Downing MD; Yony Wilson MD Vacuum Metalizing Supervisor: Signed CBC W/DIFF, AUTOMATED Collected: 12/18/2017 Status: F Source: [place] 9:25 PM [facility] TYPE CODE TESTS RESULT OUT OF RANGE REFERENCE UNITS LAB L100.1000 4.4-11.0 K/mm3 Normal WBC 8.2 LAB L100.1200 4.2-5.4 M/mm3 Low RBC 3.87 LAB L100.1300 12.0-15.0 g/dl Low HGB 10.1 LAB L100.1400 37-47 % Low HCT 32.0 LAB L100.1500 81-99 fL Normal MCV 82.7 LAB L100.1600 27.0-32.0 pg Low MCH 26.1 LAB L100.1700 32-36 g/gl Low MCHC 31.6 LAB L100.1810 11.6-14.6 % High RDW CV 19.0 LAB L100.1820 35.1-43.9 fl High RDW SD 57.5 LAB L100.1900 150-450 K/mm3 Normal PLT 219 LAB L100.2000 6.2-12.0 fl Normal MPV 8.6 LAB L100.2100 47-70 % High NEUT% 79.0 LAB L100.2200 19-41 % Low LY% 16.7 LAB L100.2300 0-10 % Normal MONO% 1.6 LAB L100.2400 0-5 % Normal EO% 2.5 LAB L100.2500 0-1 % Normal BASO% 0.1 LAB L100.2550 0.0-0.9 % Normal IM GRAN % 0.100 Result Comment: IG% - Immature Granulocytes (promyelocytes, myelocytes and metamyelocytes) > 1% indicates that a LEFT SHIFT is Present. LAB L100.2620 2.0-7.7 X10 3/uL Normal Absolute Neut 6.4 LAB L100.2720 0.83-4.51 X10 3/ul Normal Absolute Lymph 1.36 Performed By: #### L100.0100 #### [facility] [address] [place], [address] BASIC METABOLIC Collected: 12/18/2017 Status: F Source: [facility] PROFILE ([facility]) 9:25 PM [facility] TYPE CODE TESTS RESULT OUT OF RANGE REFERENCE UNITS LAB L501.0100 74-106 mg/dL Normal GLU 102 Result Comment: Fasting Glucose result from 100 to 125 mg/dL suggests IMPAIRED HOMEOSTASIS per A.D.A. criteria. Please note revised GLUCOSE reference range effective 2017. LAB L501.1000 7-18 mg/dL Normal BUN 14 LAB L501.1100 0.55-1.02 mg/dL Normal CREAT,SERUM 0.75 Result Comment: The validity of the calculated GFR AND GFRAA in patients over 70 years has not been determined. Clinical correlation is essential. LAB L501.1110 >60 mL/min Normal EST GFR 79 Result Comment: Non- GFR Calc LAB L501.1115 >60 mL/min Normal EST GFR - AA 96 Result Comment: GFR Calc LAB L501.1255 ml/min Normal Estimated CRCL 38.75 LAB L501.1300 10-20 RATIO Normal BUN/CRE 18.7 LAB L501.2200 8.5-10 mg/dL Normal .1 CA 9.5 LAB L501.5300 136-14 mmol/L Normal 5 NA 139 LAB L501.5600 3.5-5. mmol/L Normal 1 K 4.1 LAB L501.5900 98-107 mmol/L Normal CL 102 LAB L501.6100 21.0-3 mmol/L Normal 2.0 CO2 31.0 LAB L501.6200 5-15 Normal GAP 6 Performed By: #### L500.2500 #### [facility] [address] [facility] [place], [place], [address] ALCOHOL, BLOOD Collected: 12/18/2017 Status: F Source: ASHLEY (MEDICAL)-SERUM 9:25 PM [facility] REPOS[facility] TYPE CODE TESTS RESULT OUT OF RANGE REFERENCE UNITS LAB L501.9100 mg/dL Normal SERUM 5.0 ETOH Result Comment: The serum:whole blood ethanol ratio is approximately 1.14 and varies slightly with hematocrit. Medical Alcohol reference interval and critical value in non-tolerant individuals; 50 - 100 Impairment 100 Intoxication 100 - 250 Severe Poisoning 250 - 400 Deep/possible fatal coma Performed By: #### L501.9100 #### [facility] [address] [place], [place], [address] SALICYLATE Collected: 12/18/2017 Status: F Source: [place] 9:25 PM [facility] REPOS[facility] TYPE CODE TESTS RESULT OUT OF REFERENCE UNITS RANGE LAB L501.8300 2.8-20.0 mg/dL Low SALICYLATE < 1.7 Performed By: #### L501.8300, L501.8400 #### [facility] [address] [place], [address] ACETAMINOPHEN (TYLENOL) Collected: 12/18/2017 Status: F Source: [place] LEVEL 9:25 PM [facility] REPOS[facility] TYPE CODE TESTS RESULT OUT OF REFERENCE UNITS RANGE LAB L501.8400 10.0-30.0 ug/mL ACETAMINOPHEN Low < 2.0 Performed By: #### L501.8300, L501.8400 #### [facility] [address] [place], [address] DISCHARGE SUMMARY Observed: 10/14/2017 Status: F Source: [place] 8:34 AM [facility] RE[facility]IT[facility] Medical Records Department [address] [place] [address] Discharge Summary 10/14/17 0831 MR#: [id number] Acct: [id number] Name: QASIM KANG Rep #: [id number] : 1935 82 From: Emil Tamez MD PCP: Yony Wilson Status: ADM ROSALINE Y Location: [place] [address] Discharge Date and Diagnosis - Problem List Patient Problems: Active and Suspected Problems UTI (urinary tract infection) (Acute) Generalized weakness (Acute) Date of Admission: 10/12/17 Date of Discharge: 10/14/17 - Primary Discharge Diagnosis Active and Suspected Problems UTI (urinary tract infection) (Acute) Generalized weakness (Acute) - Secondary Discharge Diagnosis Chronic Problems Rheumatoid arthritis (Chronic) Hospital Course and Treatment Summary of Care Provided: Patient is an 82-year-old lady with comorbidities including rheumatoid arthritis who presented with progressive generalized weakness. Admission assessment was consistent with acute cystitis started on Rocephin admitted to regular nursing floor where patient has since been managed 1. Acute cystitis without hematuria with Klebsiella: Patient was admitted to regular nursing floor cultures were sent and admission managed on Rocephin which was switched to Keflex on discharge 2. Progressive generalized weakness possibly secondary to above in addition to patient underlying history of generalized osteoarthritis and rheumatoid arthritis requested for PT OT eval and psychiatric social worker to assist with discharge planning 3. Rheumatoid arthritis patient patient is on methotrexate did continue 4. Generalized osteoarthritis 5. Hypertension pressure stable home medications continued 6. Depression patient is on SSRI 7. DVT prophylaxis SC heparin Discharge Diet: No Restrictions Discharge Activity: May not drive while taking narcotic pain medications. Home Medications: Medications to take at Discharge Citalopram [Celexa] 40 mg PO DAILY 07/06/15 Methotrexate 15 mg PO SA 01/14/16 Oxycodone CR [Oxycontin] 20 mg PO Q12H PRN PRN 07/06/15 Tizanidine HCl [Zanaflex] 4 mg PO Q8H PRN PRN 07/06/15 Zolpidem Tartrate [Ambien] 10 mg PO QHS 07/06/15 Esomeprazole Mag Trihydrate [Nexium] 40 mg PO DAILY 07/19/15 Folic Acid 1 mg PO DAILY@0800 07/19/15 Meloxicam [Mobic] 15 mg PO DAILY 07/19/15 Amlodipine/Valsartan [Exforge 5-320 mg Tablet] 1 each PO DAILY 06/02/17 Apremilast [Otezla] 30 mg PO BID 06/02/17 Celecoxib [Celebrex] 200 mg PO DAILY 06/02/17 Cetirizine HCl [Zyrtec] 10 mg PO QHS 06/02/17 Docusate Sodium [Colace] 100 mg PO DAILY #20 capsule 06/04/17 Cephalexin [Keflex] 500 mg PO Q12 #14 cap 10/14/17 Following Prescrptions Were Given to Patient: Cephalexin [Keflex] 500 mg PO Q12 #14 cap Primary Care Physician: Yony Wilson MD [Primary Care Provider] - Please follow up with your Primary Care Physician in: in 3- 5 days Disposition: Home Minutes spent on discharge:: 35 Patient Condition:: Stable Medical Necessity - Tobacco Use Smoking Status: Never smoker Meaningful Use Info Meaningful Use Diagnoses (Choose all that apply): None applicable Code Visit OBSV E AND M: 12733 Observation care discharge 10/14/17 0834 <Electronically signed by Emil Tamez MD> Date Emil Tamez MD Cosigner Signature (if applicable): Date CC: Emil Tamez MD; Yony Wilson Signed DISCHARGE INSTRUCTION Observed: 10/14/2017 Status: F Source: ASHLEY 8:29 AM [facility] Medical Records Department [address] [place] [address] Instructions for Home/Discharge Instructions 10/14/17 0828 MR#: [id number] Acct: [id number] Name: QASIM KANG Rep #: [id number] : 1935 82 From: Emil Tamez MD PCP: Yony Wilson Status: ADM ROSALINE - Discharge Diagnoses Current Active Problems: Current Active and Chronic Problems Rheumatoid arthritis (Acute) UTI (urinary tract infection) (Acute) Generalized weakness (Acute) You will use the following diet at home:: No restrictions Discharge Activity: May not drive while taking narcotic pain medications. Allergies/Adverse Reactions: Allergies Penicillins Allergy (Verified 10/12/17 18:06) Hives Medications to take at Discharge Citalopram [Celexa] 40 mg PO DAILY 07/06/15 Methotrexate 15 mg PO SA 07/06/15 Oxycodone CR [Oxycontin] 20 mg PO Q12H PRN PRN 07/06/15 Tizanidine HCl [Zanaflex] 4 mg PO Q8H PRN PRN 07/06/15 Zolpidem Tartrate [Ambien] 10 mg PO QHS 07/06/15 Esomeprazole Mag Trihydrate [Nexium] 40 mg PO DAILY 07/19/15 Folic Acid 1 mg PO DAILY@0800 07/19/15 Meloxicam [Mobic] 15 mg PO DAILY 07/19/15 Amlodipine/Valsartan [Exforge 5-320 mg Tablet] 1 each PO DAILY 06/02/17 Apremilast [Otezla] 30 mg PO BID 06/02/17 Celecoxib [Celebrex] 200 mg PO DAILY 06/02/17 Cetirizine HCl [Zyrtec] 10 mg PO QHS 06/02/17 Docusate Sodium [Colace] 100 mg PO DAILY #20 capsule 06/04/17 Cephalexin [Keflex] 500 mg PO Q12 #14 cap 10/14/17 The following prescriptions were given: Cephalexin [Keflex] 500 mg PO Q12 #14 cap Primary Care Physician: Yony Wilson MD [Primary Care Provider] - Please follow up with your Primary Care Physician in: in 3- 5 days Proposed Discharge Date: 10/14/17 10/14/17 0829 <Electronically signed by Emil Tamez MD> Date Emil Tamez MD CC: Yony Wilson CBC W/DIFF, AUTOMATED Collected: 10/13/2017 Status: F Source: ASHLEY 6:10 AM [facility] Order Comment: REDRAW. PREVIOUS SPECIMEN REJECTED DUE TO CLOTTED. 10/13/17 0605 Lourdes Barton. TYPE CODE TESTS RESULT OUT OF RANGE REFERENCE UNITS LAB L100.1000 4.4-11.0 K/mm3 Normal WBC 7.6 LAB L100.1200 4.2-5.4 M/mm3 Low RBC 3.91 LAB L100.1300 12.0-15.0 g/dl Low HGB 9.5 LAB L100.1400 37-47 % Low HCT 31.8 LAB L100.1500 81-99 fL Normal MCV 81.3 LAB L100.1600 27.0-32.0 pg Low MCH 24.3 LAB L100.1700 32-36 g/gl Low MCHC 29.9 LAB L100.1810 11.6-14.6 % High RDW CV 18.9 LAB L100.1820 35.1-43.9 fl High RDW SD 55.2 LAB L100.1900 150-450 K/mm3 Normal PLT 286 LAB L100.2000 6.2-12.0 fl Normal MPV 8.7 LAB L100.2100 47-70 % High NEUT% 92.9 LAB L100.2200 19-41 % Low LY% 6.1 LAB L100.2300 0-10 % Normal MONO% 0.9 LAB L100.2400 0-5 % Normal EO% 0.0 LAB L100.2500 0-1 % Normal BASO% 0.0 LAB L100.2550 0.0-0.9 % Normal IM GRAN % 0.100 Result Comment: IG% - Immature Granulocytes (promyelocytes, myelocytes and metamyelocytes) > 1% indicates that a LEFT SHIFT is Present. LAB L100.2620 2.0-7.7 X10 3/uL Absolute Neut Normal 7.0 LAB L100.2720 0.83-4.51 X10 3/ul Low Absolute Lymph 0.46 LAB L100.4500 SMEAR COMMENT Normal SCANNED LAB L100.7300 ANISO Normal 2+ LAB L100.7600 HYPOCHROMASIA Normal 1+ Performed By: #### L100.0100 #### [facility] [address] [place], [place], [address] BASIC METABOLIC Collected: 10/13/2017 Status: F Source: WARD[place] PROFILE (BMP) 5:24 AM [facility] TYPE CODE TESTS RESULT OUT OF RANGE REFERENCE UNITS LAB L501.0100 74-106 mg/dL High GLU 182 Result Comment: Fasting Glucose result greater than or equal to 126 mg/dL suggests DIABETES MELLITUS per A.D.A. criteria. Please note revised GLUCOSE reference range effective 2017. LAB L501.1000 7-18 mg/dL Normal BUN 14 LAB L501.1100 0.55-1.02 mg/dL Normal CREAT,SERUM 0.75 Result Comment: The validity of the calculated GFR AND GFRAA in patients over 70 years has not been determined. Clinical correlation is essential. LAB L501.1110 >60 mL/min Normal EST GFR 79 Result Comment: Non- GFR Calc LAB L501.1115 >60 mL/min Normal EST GFR - AA 96 Result Comment: GFR Calc LAB L501.1255 ml/min Normal Estimated CRCL 37.12 LAB L501.1300 10-20 RATIO Normal BUN/CRE 18.7 LAB L501.2200 8.5-10 mg/dL Low .1 CA 8.3 LAB L501.5300 136-14 mmol/L Normal 5 NA 137 LAB L501.5600 3.5-5. mmol/L Normal 1 K 4.7 Result Comment: Slight Hemolysis, Result may be falsely increased. LAB L501.5900 98-107 mmol/L High CL 108 LAB L501.6100 21.0-32.0 mmol/L Normal CO2 23.0 LAB L501.6200 5-15 Normal 6 GAP Performed By: #### L500.2500 #### [facility] [address] [place], [place], [id number] HISTORY AND PHYSICAL Observed: 10/13/2017 Status: F Source: WARDEN EXAM 3:45 AM [facility] Medical Records Department [address] [place] [address] History and Physical 10/12/172252 MR#: [id number] Acct: [id number] Name: QASIM KANG Rep #: [id number] : 1935 82 From: Christoph Ballesteros MD PCP: Yony Wilson Status: ADM ROSALINE Y [id number] Problem List (1) Rheumatoid arthritis Status: Acute (2) UTI (urinary tract infection) Status: Acute (3) Generalized weakness Status: Acute History of Present Illness Date of Admission: 10/12/17 Chief Complaint: Generalized weakness The patient is a 82 year old female w/ h/o RA, OA, HTN and depression admitted for generalized weakness. She has been having increase generalized dull aching pain in the past few months to weeks. She also has been requiring more and more narcotics to keep her pain under controlled. However, today, she has severe diffused dull aching pain throughout her body. Nothing made it better or worse. Despite taking her pain meds, she continued to have pain. Pain is constant and has affected her ADLs. The pain is so incapacitating that she is unable to do her functional ADLs. She went to the ED for further workup. She also has dysuria today. There is no other symptoms associated with her dysuria. No change in frequency. No burning sensation. No fever or chill. 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 Lives: Spouse/ Significant Other Smoking Status: Never smoker Alcohol: None Drugs: None - *Family History Maternal History Items: No pertinent history Review of Systems Constitutional: Denies: Chills, Fever, Weight Change Eyes: Denies: Cataracts, Drainage HEENT: Denies: Head Aches, Sinus Congestion, Sinus Drainage Cardiovascular: Denies: Chest Pain, Palpitations Respiratory: Denies: Cough, Shortness of breath at rest, Sputum production Gastrointestinal: Denies: Abdominal Pain, Nausea, Vomiting Genitourinary: Denies: Dysuria Gynecological: Denies: Breast symptoms, Excessively long or heavy periods Musculoskeletal: Denies: Joint Pain, Joint Tenderness Skin: Denies: Rash, Wounds Neurological: Denies: Numbness, Tingling, Focal weakness Psychiatric: Denies: Anxiety, Depression, Homicidal Ideations, Suicidal Ideations Hematologic/ Lymphatic: Denies: Easy Bruising, Easy Bleeding VTE Information - Inpt Only VTE Present on Admission: No VTE Mechan Device Prophylaxis: SCD's VTE Pharm Prophylaxis ordered?: Yes Patient Problems: Active and Suspected Problems Rheumatoid arthritis (Acute) UTI (urinary tract infection) (Acute) Generalized weakness (Acute) - Physical Exam General: Alert, Cooperative HEENT: Atraumatic, PERRLA, EOMI, Normocephalic Neck: Supple, No JVD, Negative Carotid Bruits Lungs: Clear to auscultation, Normal air movement Cardiovascular: Regular rate, No murmurs Abdomen: Bowel Sounds Present, Soft, Non Tender Extremities: No edema, Capillary Refill Less than 3 Seconds Skin: No rashes, No breakdown Musculoskeletal: No Tenderness to Palpation of Joints or Extremities Neurological: Cranial nerves II-XII grossly intact Psych/Mental Status: Normal Affect, Appropriate Vital Signs Temp Pulse Resp BP Pulse Ox 98.3 F 69 15 162/70 H 96 10/12/17 18:11 10/12/17 20:33 10/12/17 20:33 10/12/17 20:33 10/12/17 20:33 Oxygen Flow Rate (L/min) 2 Oxygen Delivery Method Nasal Cannula Weight: 102.058 kg Body Mass Index (BMI) 39.8 Laboratory Tests Past 24 Hrs WBC 10.6 RBC 4.16 L Hgb 10.2 L Hct 33.6 L MCV 80.8 L MCH 24.5 L Assessment/Plan Active and Suspected Problems Rheumatoid arthritis (Acute) UTI (urinary tract infection) (Acute) Generalized weakness (Acute) 82 year old female w/ h/o RA, OA, HTN and depression admitted for generalized weakness. 1) Generalized weakness: Probably secondary to incapacitating pain, high dose narcotics, and UTI. Supportive care. Will try to limit narcotics if possible. 2) UTI: C/w ceftriaxone. Cultures pending. Monitor. 3) RA: Resume home meds. Monitor. 4) Prophylaxis: SCD / heparin. 10/13/17 0345 <Electronically signed by Christoph Ballesteros MD> Date Christoph Ballesteros MD Cosigner Signature: Date (if applicable) CC: Christoph Ballesteros MD; Yony Wilson Signed Observed: 10/13/2017 Status: F Source: WARDEN CULTURE, BLOOD (WB) 1:43 AM [facility] RE[facility] BC No growth in 5 days. Performed By: #### M200.1000 #### [facility] [address] [place], [address] EMERGENCY DEPARTMENT Observed: 10/13/2017 Status: F Source: WARDEN SUMMARY 12:16 AM [facility] Medical Records Department [address] [place] [address] Emergency Department Summary 10/12/17 2220 MR#: [id number] Acct: [id number] Name: QASIM KANG Rep #: [id number] : 1935 82 From: Isac Concepcion MD PCP: Yony Wilson Status: REG ER - ER Visit Summary Date of Service: 10/12/17 Chief Complaint: Diffuse pain and weakness History of Present Illness: The patient is a [address] Negron, Dr. apolonia bardales, and Dr. Nobles. She has a history of rheumatoid arthritis. She reports that today she has diffuse myalgias and arthralgias that are 10 out of 10 in severity with movement and 8 out of 10 at rest. She has taken her OxyContin without relief. She denies any trauma. No fall, MVA, or change in activity. Patient does complain of dysuria. She denies frequency. No fever or chills. Physical Examination: Vitals: Stable. Afebrile. General: Well-nourished and well-developed. Head: Normocephalic atraumatic. Neck: Supple, no lymphadenopathy. No JVD. Nontender. Cardiovascular: Regular rate and rhythm. No murmurs. Respiratory: No respiratory distress. Clear to auscultation bilaterally. Abdominal: Soft, nontender, nondistended, normal bowel sounds. No guarding, rebound, or peritoneal signs. Back: Diffuse tenderness to palpation over her entire back. No localized tenderness. Extremities: Diffuse tenderness palpation over her upper and lower extremities bilaterally. This is not localized over the joints. There is no focal tenderness to palpation. There is no erythema. I do not appreciate any joint swelling. Skin: Normal color, no rash. Neurologic: Alert and oriented 3. Cranial nerves II through XII are intact. Normal strength and sensation. Psych: Depressed affect. Test Results: CBC is marked for an H AND H of 10.2 and 33.6, segmented neutrophils of 81: Sats at 9. Chem-7 is normal. Sed rate is 76. CRP is 44.6. CPK is normal. UA does show a UTI. Emergency Department Course and Treatment: Patient was treated with morphine IV and Solu-Medrol IV. On repeat exam she continues to state that she is too weak to go home. She was given a dose of Rocephin IV and her urine was sent for culture. Treatment Plan: At this time patient tach cannot even get up to the bedside commode. She lives at home with her . I feel that she warrants admission to the hospital overnight for observation and further treatment. Disposition: Admitted in improved condition. Impression: 1. Rheumatoid arthritis. 2. UTI. 3. Generalized weakness. This note was generated with [employer] dictation software. It may contain incorrect words, spelling, and punctuation that were not noted in review of the chart prior to signing ED Disposition - Plan for ED Patient: Chief Complaint: Other, Pain/Inj Referrals: Yony Wilson MD [Primary Care Provider] - What to do if you have Problems For any increased pain, shortness of breath, bleeding, nausea or vomiting, chest pain, or any unexpected problems, contact your Primary Care Provider. Call [facility] ([phone]) or report to the closest Emergency Room. Call 911 if necessary. 10/13/17 0016 <Electronically signed by Isac Concepcion MD> Date Isac Concepcion MD Cosigner Signature (If Indicated): Date CC: Yony Wilson URINALYSIS, COMPLETE Collected: 10/12/2017 Status: F Source: ASHLEY 9:22 PM [facility] Order Comment: How was Urine Obtained? CLEAN CATCH TYPE CODE TESTS RESULT OUT OF RANGE REFERENCE UNITS LAB L400.3000 Yellow COLOR Normal Yellow LAB L400.3050 Clear Normal CLARITY Sl. Cloudy LAB L400.3200 Normal mg/dl Normal GLUCOSE, UR Normal LAB L400.3300 Negative mg/dL Normal BILIRUBIN URINE Negative LAB L400.3400 Negative mg/dl Normal KETONE UR Negative LAB L400.3465 1.002-1.030 Normal SP.GR. DIPSTX 1.010 LAB L400.3550 5.0 - 8.0 pH UR Normal 7.0 LAB L400.3600 Negative mg/dl PROT Normal DIPSTX Negative LAB L400.3700 Normal mg/dl Normal UROBILI Normal LAB L400.3750 Negative High NITRITE UR Positive LAB L400.3780 Negative /ul High 10 OCCULT BLOOD-UR LAB L400.3800 Negative /ul High LEUK ESTERASE 500 LAB L400.4050 0-5 /hpf WBC Normal 10-25 SEEN LAB L400.4100 0-5 /hpf 0 Normal RBC-UA SEEN LAB L400.4150 5-10 /hpf SQUAM Normal EPI 0-5 SEEN LAB L400.4300 None Seen /hpf 4+ Normal BACTERIA LAB L400.4350 <or=2+ /hpf 0 Normal MUCUS, URINE SEEN Performed By: #### L400.0001 #### [facility] [address] [place], [address] Observed: 10/12/2017 Status: F Source: ASHLEY CULTURE, URINE 9:22 PM [facility] Order Date: 10/12/17 Urine Culture ORGANISM 1: Klebsiella pneumoniae sp pneum [place] Count >100,000 Klebsiella pneumoniae sp pneum: REACTION Amoxacillin/Clavulanic Acid $ <=2 S Ampicillin $ 16 R Ampicillin/Sulbactam $ 4 S Cefazolin $ <=4 S Cefepime $ <=1 S Ceftriaxone $ <=1 S Ciprofloxacin $ <=0.25 S ESBL - Ertapenim $$$ <=0.5 S Gentamicin $ <=1 S Imipenem *NF <=0.25 S Levofloxacin $ <=0.12 S Nitrofurantoin $ 32 S Piperacillin/Tazobactam $$ <=4 S Tobramycin $ <=1 S Trimethoprim/Sulfametho $ <=20 S (NF) indicates non-formulary drug at [facility]. Approval by Infectious Disease Specialist required before non-formulary drugs may be ordered and/or dispensed. Performed By: #### M100.0650 #### [facility] [place], [address] CBC W/DIFF, AUTOMATED Collected: 10/12/2017 Status: F Source: WARDEN 6:40 [facility] REPOSITORY TYPE CODE TESTS RESULT OUT OF RANGE REFERENCE UNITS LAB L100.1000 4.4-11.0 K/mm3 Normal WBC 10.6 LAB L100.1200 4.2-5.4 M/mm3 Low RBC 4.16 LAB L100.1300 12.0-15.0 g/dl Low HGB 10.2 LAB L100.1400 37-47 % Low HCT 33.6 LAB L100.1500 81-99 fL Low MCV 80.8 LAB L100.1600 27.0-32.0 pg Low MCH 24.5 LAB L100.1700 32-36 g/gl Low MCHC 30.4 LAB L100.1810 11.6-14.6 % High RDW CV 18.9 LAB L100.1820 35.1-43.9 fl High RDW SD 55.5 LAB L100.1900 150-450 K/mm3 Normal PLT 286 LAB L100.2000 6.2-12.0 fl Normal MPV 8.3 LAB L100.2100 47-70 % High NEUT% 81.1 LAB L100.2200 19-41 % Low LY% 8.5 LAB L100.2300 0-10 % Normal MONO% 9.4 LAB L100.2400 0-5 % Normal EO% 0.8 LAB L100.2500 0-1 % Normal BASO% 0.1 LAB L100.2550 0.0-0.9 % Normal IM GRAN % 0.100 Result Comment: IG% - Immature Granulocytes (promyelocytes, myelocytes and metamyelocytes) > 1% indicates that a LEFT SHIFT is Present. LAB L100.2620 2.0-7.7 X10 3/uL High Absolute Neut 8.6 LAB L100.2720 0.83-4.51 X10 3/ul Normal Absolute Lymph 0.90 Performed By: #### L100.0100, L101.9900 #### [facility] [address] [facility] [place], [place], [address] ERYTHROCYTE SED RATE Collected: 10/12/2017 Status: F Source: WARDEN 6:40 PM [facility] TYPE CODE TESTS RESULT OUT OF RANGE REFERENCE UNITS LAB L102.0000 0-30 mm/hr High SED RATE 76 Performed By: #### L100.0100, L101.9900 #### [facility] [address] [facility] [facility] [address] BASIC METABOLIC Collected: 10/12/2017 Status: F Source: WARDEN PROFILE (BMP) 6:40 PM [facility] TYPE CODE TESTS RESULT OUT OF RANGE REFERENCE UNITS LAB L501.0100 74-106 mg/dL Normal GLU 104 Result Comment: Fasting Glucose result from 100 to 125 mg/dL suggests IMPAIRED HOMEOSTASIS per A.D.A. criteria. Please note revised GLUCOSE reference range effective 2017. LAB L501.1000 7-18 mg/dL Normal BUN 14 LAB L501.1100 0.55-1.02 mg/dL Normal CREAT,SERUM 0.89 Result Comment: The validity of the calculated GFR AND GFRAA in patients over 70 years has not been determined. Clinical correlation is essential. LAB L501.1110 >60 mL/min Normal EST GFR 65 Result Comment: Non- GFR Calc LAB L501.1115 >60 mL/min Normal EST GFR - AA 78 Result Comment: GFR Calc LAB L501.1255 ml/min Normal Estimated CRCL 41.70 LAB L501.1300 10-20 RATIO Normal BUN/CRE 15.7 LAB L501.2200 8.5-10 mg/dL Normal .1 CA 8.9 LAB L501.5300 136-14 mmol/L Normal 5 NA 140 LAB L501.5600 3.5-5. mmol/L Normal 1 K 3.8 LAB L501.5900 98-107 mmol/L Normal CL 103 LAB L501.6100 21.0-3 mmol/L Normal 2.0 CO2 28.0 LAB L501.6200 5-15 Normal GAP 9 Performed By: #### L500.2500, L501.3620, L501.6710 #### [facility] [address] [place], [address] CPK TOTAL, CREATINE Collected: 10/12/2017 Status: F Source: WARDEN KINASE 6:40 PM [facility] TYPE CODE TESTS RESULT OUT OF RANGE REFERENCE UNITS LAB L501.3620 26-192 U/L Normal CPK TOTAL 46 Performed By: #### L500.2500, L501.3620, L501.6710 #### [facility] [address] [place], [address] CRP Collected: 10/12/2017 Status: F Source: WARDEN 6:40 PM [facility] TYPE CODE TESTS RESULT OUT OF RANGE REFERENCE UNITS LAB L501.6710 0.0-3.0 mg/L High 44.60 C-REACTIVE PROT Result Comment: C-Reactive Protein (CRP) provides useful information for the diagnosis, therapy and monitoring of inflammatory processes and associated diseases. For the evaluation of Relative Risk for Cardiovascular Disease, a High Sensitivity CRP (HSCRP) should be ordered. Performed By: #### L500.2500, L501.3620, L501.6710 #### [facility] [address] [place], [place], [address] CBC W/DIFF, AUTOMATED Collected: 10/01/2017 Status: F Source: WARDEN 12:22 PM [facility] TYPE CODE TESTS RESULT OUT OF RANGE REFERENCE UNITS LAB L100.1000 4.4-11.0 K/mm3 Normal WBC 9.3 LAB L100.1200 4.2-5.4 M/mm3 Normal RBC 4.22 LAB L100.1300 12.0-15.0 g/dl Low HGB 10.3 LAB L100.1400 37-47 % Low HCT 33.9 LAB L100.1500 81-99 fL Low MCV 80.3 LAB L100.1600 27.0-32.0 pg Low MCH 24.4 LAB L100.1700 32-36 g/gl Low MCHC 30.4 LAB L100.1810 11.6-14.6 % High RDW CV 18.1 LAB L100.1820 35.1-43.9 fl High RDW SD 51.7 LAB L100.1900 150-450 K/mm3 Normal PLT 349 LAB L100.2000 6.2-12.0 fl Normal MPV 9.4 LAB L100.2100 47-70 % High NEUT% 75.0 LAB L100.2200 19-41 % Low LY% 13.7 LAB L100.2300 0-10 % Normal MONO% 7.6 LAB L100.2400 0-5 % Normal EO% 3.5 LAB L100.2500 0-1 % Normal BASO% 0.1 LAB L100.2550 0.0-0.9 % Normal IM GRAN % 0.100 Result Comment: IG% - Immature Granulocytes (promyelocytes, myelocytes and metamyelocytes) > 1% indicates that a LEFT SHIFT is Present. LAB L100.2620 2.0-7.7 X10 3/uL Normal Absolute Neut 7.0 LAB L100.2720 0.83-4.51 X10 3/ul Normal Absolute Lymph 1.27 Performed By: #### L100.0100 #### [facility] [address] [place], [address] COMPREHENSIVE METABOLIC Collected: 10/01/2017 Status: F Source: [facility] 12:22 PM [facility] TYPE CODE TESTS RESULT OUT OF RANGE REFERENCE UNITS LAB L501.0100 74-106 mg/dL Normal GLU 106 Result Comment: Fasting Glucose result from 100 to 125 mg/dL suggests IMPAIRED HOMEOSTASIS per A.D.A. criteria. Please note revised GLUCOSE reference range effective 2017. LAB L501.1000 7-18 mg/dL Normal BUN 10 LAB L501.1100 0.55-1.02 mg/dL Normal CREAT,SERUM 0.80 Result Comment: The validity of the calculated GFR AND GFRAA in patients over 70 years has not been determined. Clinical correlation is essential. LAB L501.1110 >60 mL/min Normal EST GFR 74 Result Comment: Non- GFR Calc LAB L501.1115 >60 mL/min Normal EST GFR - AA 89 Result Comment: GFR Calc LAB L501.1300 10-20 RATIO Normal BUN/CRE 12.6 LAB L501.1500 6.4-8.2 g/dL T Normal PROT 7.0 LAB L501.1800 3.2-5.0 g/dL Low ALB 3.1 LAB L501.1950 2.2-4.2 g/dL Normal GLOB 3.9 LAB L501.2000 0.9-2.4 RATIO Low A/G 0.8 LAB L501.2200 8.5-10.1 mg/dL CA Normal 8.8 LAB L501.4100 15-37 U/L Low AST 14 LAB L501.4305 45-117 U/L Normal ALK P 79 LAB L501.4405 13-56 U/L Low ALT 10 Result Comment: Please note revised ALT reference range effective 2017. LAB L501.4600 0.20-1.00 mg/dL Normal T BILI 0.50 LAB L501.5300 136-145 mmol/L Normal NA 140 LAB L501.5600 3.5-5.1 mmol/L Normal K 4.2 LAB L501.5900 98-107 mmol/L Normal CL 105 LAB L501.6100 21.0-32.0 mmol/L Normal CO2 27.0 LAB L501.6200 5-15 Normal GAP 8 Performed By: #### L500.4050 #### [facility] [address] [place], [place], [address] COMPREHENSIVE METABOLIC Collected: 07/18/2017 Status: F [facility]14 AM [facility] REPOSITORY TYPE CODE TESTS RESULT OUT OF RANGE REFERENCE UNITS LAB L501.0100 70-110 mg/dL Normal GLU 100 LAB L501.1000 7-18 mg/dL Normal BUN 18 LAB L501.1100 0.55-1.02 mg/dL Normal 1.01 CREAT,SERUM Result Comment: The validity of the calculated GFR AND GFRAA in patients over 70 years has not been determined. Clinical correlation is essential. LAB L501.1110 >60 mL/min Low EST GFR 56 Result Comment: Non- GFR Calc LAB L501.1115 >60 mL/min Normal EST GFR - AA 68 Result Comment: GFR Calc LAB L501.1300 10-20 RATIO Normal BUN/CRE 17.8 LAB L501.1500 6.4-8.2 g/dL T Normal PROT 7.1 LAB L501.1800 3.4-5.0 g/dL Normal ALB 3.4 Result Comment: Please note revised Albumin AND Globulin reference range effective 2017. LAB L501.1950 2.2-4.2 g/dL Normal GLOB 3.7 LAB L501.2000 0.9-2.4 RATIO Normal A/G 0.9 LAB L501.2200 8.5-10.1 mg/dL Normal CA 8.8 LAB L501.4100 15-37 U/L Low AST 13 LAB L501.4305 45-117 U/L Normal ALK P 95 LAB L501.4405 12-78 U/L Normal ALT 21 LAB L501.4600 0.20-1.00 mg/dL Normal T BILI 0.30 LAB L501.5300 136-145 mmol/L Normal NA 137 LAB L501.5600 3.5-5.1 mmol/L Normal K 4.6 LAB L501.5900 98-107 mmol/L Normal CL 104 LAB L501.6100 21.0-32.0 mmol/L Normal CO2 25.0 LAB L501.6200 5-15 Normal GAP 8 Performed By: #### L500.4050 #### [facility] [address] [place], [address] CBC W/DIFF, AUTOMATED Collected: 07/18/2017 Status: F Source: [facility] 11:14 AM [facility] REPOSITORY TYPE CODE TESTS RESULT OUT OF RANGE REFERENCE UNITS LAB L100.1000 4.4-11.0 K/mm3 Normal WBC 9.3 LAB L100.1200 4.2-5.4 M/mm3 Normal RBC 4.22 LAB L100.1300 12.0-15.0 g/dl Low HGB 11.0 LAB L100.1400 37-47 % Low HCT 36.1 LAB L100.1500 81-99 fL Normal MCV 85.5 LAB L100.1600 27.0-32.0 pg Low MCH 26.1 LAB L100.1700 32-36 g/gl Low MCHC 30.5 LAB L100.1810 11.6-14.6 % High RDW CV 16.6 LAB L100.1820 35.1-43.9 fl High RDW SD 51.0 LAB L100.1900 150-450 K/mm3 Normal PLT 301 LAB L100.2000 6.2-12.0 fl Normal MPV 11.2 LAB L100.2100 47-70 % Normal NEUT% 64.0 LAB L100.2200 19-41 % Normal LY% 23.5 LAB L100.2300 0-10 % Normal MONO% 8.6 LAB L100.2400 0-5 % Normal EO% 3.3 LAB L100.2500 0-1 % Normal BASO% 0.5 LAB L100.2550 0.0-0.9 % Normal IM GRAN % 0.100 Result Comment: IG% - Immature Granulocytes (promyelocytes, myelocytes and metamyelocytes) > 1% indicates that a LEFT SHIFT is Present. LAB L100.2620 2.0-7.7 X10 3/uL Normal Absolute Neut 5.9 LAB L100.2720 0.83-4.51 X10 3/ul Normal Absolute Lymph 2.18 Performed By: #### L100.0100 #### [facility] [address] [facility] [place], [address] EMERGENCY DEPARTMENT Observed: 06/19/2017 Status: F Source: [facility] 1:26 AM [facility] REPOSITORY [facility] Medical Records Department [address] [place] [address] Emergency Department Summary MR#: [id number] Acct: [id number] Name: QASIM KANG Rep #: [id number] : 1935 81 From: Isac Concepcion MD PCP: Yony Wilson Status: DEP ER DATE OF SERVICE: 06/04/2017 METHOD OF ARRIVAL: Private car. CHIEF COMPLAINT: Right side pain, decreased urine output. HISTORY OF PRESENT ILLNESS: A 81-year-old female patient of Dr. Yony Wilson, reports that she fell 2 days ago. She was in the Emergency Department and was transferred to [facility] for repair of a large scalp laceration that could not be closed in the Emergency Department. The patient reports that when she got home she noticed that she had severe right-sided pain. She reports it is 10/10 at worst, it is 5/10 currently. It is a dull pain. It is sharp with any movement. She was not discharged on pain medications. The patient also reports she has had decreased urine output and last urination was approximately 1 day ago. PHYSICAL EXAMINATION: GENERAL: Reveals alert woman in no acute distress. VITAL SIGNS: Stable vital signs of 97.6, 156/87, 84, 18 and 98% on room air. She is not hypoxic. HEART: Significant physical exam findings include cardiovascular exam shows regular rate and rhythm with II/ systolic murmur. RESPIRATORY: Clear to auscultation bilaterally. She has moderate tenderness to palpation over the lower ribs on the right. There is no crepitus. She has a contusion over the right flank and right upper quadrant. This area is moderately tender to palpation. BACK: Shows no vertebral tenderness. EXTREMITIES: Atraumatic. The remainder of physical exam is unremarkable. Please see T-sheet for details. TEST RESULTS: The patient had a CT of the abdomen and pelvis with IV contrast ____ shows right fifth, sixth, seventh and eighth rib fractures with no pneumothorax and no intra-abdominal injuries. CBC is remarkable for an H and H 9.7 and 31.1, lymphocytes of 18. Chem-7 is normal. UA that is normal. EMERGENCY DEPARTMENT COURSE: The patient treated with morphine and Zofran IV. She is resting comfortably. TREATMENT PLAN: The patient will be discharged with [place] and incentive spirometer. She also will be placed on Colace and instructed to follow up with her primary care physician in a week for another exam. DISPOSITION: Home, stable condition. IMPRESSION: 1. Fall. 2. Right fifth, sixth, seventh and eighth rib fractures. MD Mackenzie Jeffrey C: Yony Wilson T: [facility] JOB: [id number] 06/19/17 0126 <Electronically signed by Isac Concepcion MD> Date Isac Concepcion MD Cosigner Signature (If Indicated): Date CC: Yony Wilson Date Dictated: 06/05/17223 Date Transcribed: 06/05/17223 Vacuum Metalizing Supervisor: Signed ALLERGIES ALLERGIES DATE TYPE / CODE NAME / CODE REACTION SEVERITY SOURCE 12/19/2017 Drug Penicillins/ Hives Unknown [facility] Allergy/4160 [id number]([facility] [address](SNOMED XNORM) Repository CT) ENCOUNTERS ENCOUNTERS ADMIT/DISCHARGE ACCOUNT ADMITTING ENCOUNTER LOCATION SOURCE NUMBER CLASS 05/19/2018 [id number] [place] [facility] ing:RAD Repository 05/08/2018 [id number] [facility] [facility] ing:MTLAB Repository 03/11/2018 [id number] Ambulatory [place] 8 [facility] ing:BFHLAB Repository 02/16/2018 [id number] Ambulatory [place] 6 [facility] ing:BFHLAB Repository 02/09/2018 [id number] [place] [facility] ing:MTLAB Repository 01/23/2018 [id number] Amb[place] [facility] ing:BFHLAB Repository 01/07/2018 [id number] Ambulatory [place] 6 [facility] ing:MTLAB Repository 12/30/2017 [id number] Ambulatory [place] 3 [facility] ing:LAB Repository 12/18/2017/ [id number] [facility] Ambulatory [place] 8 5 [facility] ing:PCURoom: Repository [id number]: 1 12/18/2017 [id number] Tere[place]sky, Ambulatory BMSBuilding:B [place] Repository 12/18/2017 [id number] [place], Ambulatory BMSBuilding:B [place] 7 [place] [facility] Repository 10/13/2017/ [id number] Lesli, Christoph Amb[facility] [place] 2 [facility] ing:GO5Ambk: Repository [id number]: 1 10/13/2017 [id number] Lesli, [facility] Ambulatory BMSBuilding:B [place] 6 [place] Repository 10/13/2017 [id number] Lesli, Christoph Ambulatory BMSBuilding:B [place] 2 [facility] Repository 10/13/2017 [id number] Lesli, [facility] Ambulatory BMSBuilding:B [place] 2 [facility] Repository 10/01/2017 [id number] Amb[place] [facility] ing:MTLAB Repository 07/18/2017 [id number] Ambulatory [place] 5 [facility] ing:MTLAB Repository 06/04/2017/ [id number] Emergency [place] 7 5 [facility] ing:ED Repository PAYERS PAYERS ENCOUNTER GUARANTOR PAYER SUBSCRIBER SOURCE 05/19/2018 IVÁN Mays Primary Insurance:[facility] QASIM G [place] [id number] [facility] [employer] ISABELAB: [facility] SERENITY Number: [id number], [place] [id number] Repository 94700Ycn: (330) Date:4726-06-65OF [phone] ([facility] [address] [address]LH: 05/19/2018 Secondary NOT GIVENUNK [place] Insurance:SELF PAY [facility] Number: Effective Repository Date:2018-05-19 05/08/2018 IVÁN Mays Primary Insurance:[facility] QASIM G [place] [id number] [facility] DORAAllegheny Health NetworkJOURDANDOB: [facility] SERENITY Number: [id number], [place] [id number] Repository 34902Uxk: (330) Date:2543-71-03WJ [phone] (HP) [address] [place] [phone]: 05/08/2018 Secondary NOT GIVENUNK [place] Insurance:SELF PAY [facility] Number: Effective Repository Date:2018-05-08 03/11/2018 IVÁN Mays Primary Insurance:[facility] QASIM Henrietta [place] [id number] [facility] SOLUTIONSPolicy TINKERDOB: Community SERENITY Number: [id number], [place] [id number] Repository [address]Ubs: (330) Date:5489-04-20AA [phone] (HP) [address] [place] [address]CJ: 03/11/2018 Secondary NOT GIVENUNK [place] Insurance:SELF PAY [facility] Number: Effective Repository Date:2018-03-11 02/16/2018 IVÁN L Primary Insurance:[facility] QASIM G [place] [id number] [facility] SOLUTIONSPolicy TINKERDOB: Community SERENITY Number: [id number], [place] [id number] Repository [address]69[address]Lbc: (330) Date:7687-00-85UZ [phone] (HP) [address] [place] [phone]: 02/16/2018 Secondary NOT GIVENUNK [place] Insurance:SELF PAY [facility] Number: Effective Repository Date:2018-02-16 02/09/2018 IVÁN L Primary Insurance:[facility] QASIM Henrietta [place] [id number] [facility] SOLUTIONSPolicy TINKERDOB: Community SERENITY Number: [id number], [place] [id number] Repository [address]Zsj: (330) Date:9758-41-99GP [phone] (HP) [address] [place] [phone]: 02/09/2018 Secondary NOT GIVENUNK [place] Insurance:SELF PAY [facility] Number: Effective Repository Date:2018-02-09 01/23/2018 IVÁN Mays Primary Insurance:[facility] QASIM Henrietta [place] [id number] MCR SOLUTIONSPolicy TINKERDOB: Community SERENITY Number: [id number], [place] [id number] Repository 28[address]Fcy: (330) Date:5788-50-40FR [phone] (HP) [address] [place] [phone]: 01/23/2018 Secondary NOT GIVENUNK [place] Insurance:SELF PAY [facility] Number: Effective Repository Date:2018-01-23 01/07/2018 IVÁN Mays Primary Insurance:[facility] QASIM G [place] [id number] MCR SOLUTIONSPolicy TINKERDOB: Community SERENITY Number: [id number], [place] [id number] Repository [address]48[address]Yyw: (330) Date:5769-42-00XF [phone] () [address] [place] [phone]: 01/07/2018 Secondary NOT GIVENUNK [place] Insurance:SELF PAY [facility] Number: Effective Repository Date:2018-01-07 12/30/2017 IVÁN Mays Primary Insurance:[facility] QASIM G [place] [id number] MCR SOLUTIONSPolicy TINKERDOB: Community SERENITY Number: [id number], [place] [id number] Repository [address]Iul: (330) Date:9025-30-43GJ [phone] (HP) [address] [place] [phone]: 12/30/2017 Secondary NOT GIVENUNK [place] Insurance:SELF PAY [facility] Number: Effective Repository Date:2017-12-30 12/18/2017 IVÁN Mays Primary Insurance:[facility] QASIM G [place] [id number] MCR SOLUTIONSPolicy TINKERDOB: Community SERENITY Number: [id number], [place] [id number] Repository [address]Jyo: (330) Date:9896-19-59SZ [phone] (HP) [address] [place] [phone]: 12/18/2017 Secondary NOT GIVENUNK [place] Insurance:SELF PAY [facility] Number: Effective Repository Date:2017-12-18 12/18/2017 IVÁN L Primary Insurance:[facility] QASIM Henrietta [place] [id number] MCR SOLUTIONSPolicy TINKERDOB: Community SERENITY Number: [id number], [place] [id number] Repository 97[address]Eee: (330) Date:8182-77-24DG [phone] (HP) [address] [place] [phone]: 12/18/2017 Secondary NOT GIVENUNK [place] Insurance:SELF PAY [facility] Number: Effective Repository Date:2017-12-18 12/18/2017 IVÁN L Primary Insurance:[facility] QASIM G [place] [id number] [facility] SOLUTIONSPolicy TINKERDOB: Community SERENITY Number: [id number], [place] [id number] Repository [address]Ohw: (330) Date:7272-26-63FC [phone] (HP) [address] [place] [phone]: 12/18/2017 Secondary NOT GIVENUNK [place] Insurance:SELF PAY [facility] Number: Effective Repository Date:2017-12-18 10/13/2017 Iván L Primary Insurance:[facility] QASIM G [place] [id number] [facility] SOLUTIONSPolicy TINKERDOB: Community Serenity Number: [id number], [place] [id number] Repository [address]32[address]Weu: (330) Date:6647-97-27YC [phone] (HP) [address] [place] [phone]: 10/13/2017 Secondary NOT GIVENUNK [place] Insurance:SELF PAY Community [facility] Number: Effective Repository Date:2017-10-12 10/13/2017 IVÁN Mays Primary Insurance:[facility] QASIM Henrietta [place] [id number] MCR SOLUTIONSPolicy TINKERDOB: Community SERENITY Number: [id number], [place] [id number] Repository [address]Qpa: (330) Date:7895-49-24TS [phone] () [address] [place] [phone]: 10/13/2017 Secondary NOT GIVENUNK [place] Insurance:SELF PAY [facility] Number: Effective Repository Date:2017-10-12 10/13/2017 Iván Masy Primary Insurance:[facility] QASIM Henrietta [place] [id number] MCR SOLUTIONSPolicy TINKERDOB: Community Serenity Number: [id number], [place] [id number] Repository [address]Asu: (330) Date:8475-70-40XJ [phone] () [address] [place] [phone]: 10/13/2017 Secondary NOT GIVENUNK [place] Insurance:SELF PAY [facility] Number: Effective Repository Date:2017-10-13 10/13/2017 Iván Mays Primary Insurance:[facility] QASIM Henrietta [place] [id number] [facility] SOLUTIONSPolicy TINKERDOB: Community Serenity Number: [id number], [place] [id number] Repository [address]Nva: (330) Date:6126-76-47VX [phone] () [address] [place] [phone]: 10/13/2017 Secondary NOT GIVENUNK [place] Insurance:SELF PAY [facility] Number: Effective Repository Date:2017-10-13 10/01/2017 Iván Mays Primary Insurance:[facility] QASIM Henrietta [place] [id number] MCR SOLUTIONSPolicy TINKERDOB: Community [place]renity Number: [id number], [place] [id number] Repository 268[address]Rfi: (330) Date:0906-24-84HY [phone] (HP) [address] [place] [phone]: 10/01/2017 Secondary NOT GIVENUNK [place] Insurance:SELF PAY [facility] Number: Effective Repository Date:2017-10-01 07/18/2017 Iván L Primary Insurance:[facility] QASIM G [place] [id number] MCR SOLUTIONSPolicy TINKERDOB: Community [place]ity Number: [id number], [place] [id number] Repository 34[address]Cmj: (330) Date:2273-18-68BG [phone] (HP) [address] [place] [phone]: 07/18/2017 Secondary NOT GIVENUNK [place] Insurance:SELF PAY [facility] Number: Effective Repository Date:2017-07-18 06/04/2017 Iván L Primary Insurance:[facility] QASIM G [place] [id number] [facility] SOLUTIONSPolicy TINKERDOB: Community [place]renity Number: [id number], [place] [id number] Repository 300[address]Geg: (330) Date:7173-60-37GK [phone] (HP) [address] [place] [phone]: 06/04/2017 Secondary NOT GIVENUNK [place] Insurance:SELF PAY [facility] Number: Effective Repository Date:2017-06-04
== END ==
PROVIDERS: Family Provider Family Medicine; PCP Family Medicine; Referring Provider Anesthesiology Pain Medicine; Visit Provider Anesthesiology Pain Medicine
DX: M25.511 Pain in right shoulder (principal); M25.512 Pain in left shoulder
CPT/HCPCS: 73030

== ENCOUNTER → 2018-07-14 11:41 | Outpatient (CLI) | payer MEDICARE, SELFPAY ==
[2018-07-14 17:13] LABS: Ferritin 12 ng/mL (8-252); Iron 33 ug/dL (50-170); Thyroid Stim Hormone (TSH) 1.57 uIU/mL (0.358-3.74)
[2018-07-14 17:14] LABS: Absolute Lymphocyte Count 1.72 X10^3/ul (0.83-4.51); Absolute Neutrophil Count 3.9 X10^3/uL (2.0-7.7); Basophil# 0.02 X10^3/uL; Basophil% 0.3 % (0-1); Eosinophil# 0.63 X10^3/uL; Eosinophils% 9.1 % (0-5); Hematocrit 35.6 % (37-47); Hemoglobin 10.6 g/dl (12.0-15.0); Lymphocyte # 1.72 X10^3/ul (4.0); Mean Corp Hgb Conc 29.8 g/gl (32-36); Mean Corpuscular Hgb 24.8 pg (27.0-32.0); Mean Corpuscular Volume 83.2 fL (81-99); Mean Platelet Vol. 10.1 fl (6.2-12.0); Monocyte# 0.58 X10^3/uL; Monocyte% 8.4 % (0-10); Neutrophil # 3.93 X10^3/uL (2.7-7.7); Neutrophil % 57.1 % (47-70); POSITIVE COUNT NO; POSITIVE DIFFERENTIAL NO; POSITIVE MORPHOLOGY NO; Platelet Count 255 K/mm3 (150-450); RBC Distribution Width CV 17.5 % (11.6-14.6); RBC Distribution Width SD 52.8 fl (35.1-43.9); Red Blood Count 4.28 M/mm3 (4.2-5.4); White Blood Count 6.9 K/mm3 (4.4-11.0)
[2018-07-14 17:32] LABS: Vitamin B12 363 pg/mL (211-911)
--- OUTSIDE RECORDS SUMMARY | 2018-09-15 15:38 | XMS RPT_ITS ---
:1935 Author Organization OHIP Support Name Relationship Address Phone R Unavailable Unavailable Unavailable JORGE LUISIVÁN Unavailable [address] + [place] [address] R Unavailable Unavailable Unavailable JORGE LUISIVÁN Unavailable [address] + [place] [address] R Unavailable Unavailable Unavailable JORGE LUISIVÁN Unavailable [address] + [place] [address] R Unavailable Unavailable Unavailable JORGE LUISIVÁN Unavailable [address] + [place] [address] R Unavailable Unavailable Unavailable JORGE LUISIVÁN Unavailable [address] + [place] [address] R Unavailable Unavailable Unavailable JORGE LUISIVÁN Unavailable [address] + [place] [address] R Unavailable Unavailable Unavailable JORGE LUISIVÁN Unavailable [address] + [place] [address] R Unavailable Unavailable Unavailable JORGE LUISIVÁN Unavailable [address] + [place] [address] R Unavailable Unavailable Unavailable JORGE LUISIVÁN Unavailable [address] + [place] [address] R Unavailable Unavailable Unavailable JORGE LUISIVÁN Unavailable [address] + [place] [address] R Unavailable Unavailable Unavailable JORGE LUIS IVÁN Unavailable [address] + [place] [address] R Unavailable Unavailable Unavailable JORGE LUISIVÁN Unavailable [address] + [place] [address] R Unavailable Unavailable Unavailable IVÁN KANG Unavailable [address] + [place] [address] R Unavailable Unavailable Unavailable JORGE LUISIVÁN Unavailable [address] + [place] [address] R Unavailable Unavailable Unavailable IVÁN KANG Unavailable [address] + [place] [address] R Unavailable Unavailable Unavailable IVÁN KANG Unavailable [address] + [place] [address] R Unavailable Unavailable Unavailable JORGE LUISIVÁN SOLIMAN Unavailable [address] + [place] [address] Care Team Providers Name Role Phone Yony Wilson Attending Unavailable [employer], Yony Primary Care Unavailable Anel, Breanne Attending Unavailable Anel, Breanne Referring Unavailable Katie, Yony Primary Care Unavailable [employer], Yony Primary Care Unavailable Lesli, Christoph Admitting [...] Consulting Unavailable Katie, Yony Primary Care Unavailable Blair Vargas Admitting Unavailable Simon Alvarenga Attending Unavailable Blair Vargas Admitting Unavailable Blair Vargas Attending Unavailable [employer], Yony Primary Care Unavailable Blair Vargas Consulting Unavailable Blair Vargas Admitting Unavailable Simon Alvarenga Attending Unavailable Katie, Yony Primary Care Unavailable Simon Alvarenga Consulting Unavailable Daphnie Negron Attending Unavailable Daphnie Negron Referring Unavailable [employer], Yony Primary Care Unavailable Anel, Breanne Attending Unavailable Anel, Breanne Referring Unavailable Katie, Yony Primary Care Unavailable Yony Wilson Attending Unavailable Katie, Yony Primary Care Unavailable Anel, Breanne Attending Unavailable Anel, Breanne Referring Unavailable Katie, Yony Primary Care Unavailable Yony Wilson Attending Unavailable Katie, Yony Primary Care Unavailable Yony Wilson Attending Unavailable Katie, Yony Primary Care Unavailable Anel, Breanne Attending Unavailable Anel, Breanne Referring Unavailable Katie, Yony Primary Care Unavailable Daphnie Negron Attending Unavailable Daphnie Negron Referring Unavailable KatieYony fong Primary Care Unavailable PROBLEMS PROBLEMS DATE TYPE CONDITION / CODE ATTENDING STATUS SOURCE 07/14/2018 Unknown D64.9 - Anemia, Yony Wilson Active [facility] unspecified / Community D64.9(ICD-10) Hospital Repository 07/14/2018 Unknown I10 - Essential Yony Wilson Active [place] (primary) Community hypertension / Hospital I10(ICD-10) Repository 07/14/2018 Unknown R41.0 - Yony Wilson Active [facility] Disorientation, Community unspecified / Hospital R41.0(ICD-10) Repository 05/08/2018 Unknown 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 - Other [place] 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 / Hospital L40.59(ICD-10) Repository 05/08/2018 Unknown Z79.899 - Other long Breanne Tam Active [facility] term (current) drug Community therapy / Hospital Z79.899(ICD-10) Repository 05/08/2018 Unknown L40.8 - Other [place], Breanne Active [facility] psoriasis / Community L40.8(ICD-10) Hospital Repository 05/08/2018 Unknown M79.7 - Fibromyalgia Velgely Breanne Active [facility] / M79.7(ICD-10) Community Hospital Repository 05/08/2018 Unknown 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 / M17.0(ICD-10) Repository 05/08/2018 Unknown K21.0 - [place] Breanne Active [facility] Gastro-esophageal Community reflux disease with Hospital esophagitis / Repository K21.0(ICD-10) 05/08/2018 Unknown M47.897 - Other [place], Breanne Active [facility] spondylosis, Community lumbosacral region / Hospital M47.897(ICD-10) Repository 05/08/2018 Unknown M47.892 - Other [place], Breanne Active [facility] spondylosis, Community cervical region / Hospital M47.892(ICD-10) Repository 05/08/2018 Unknown Z85.42 - Personal [place] Breanne Active [facility] 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 / Repository Z85.42(ICD-10) 02/16/2018 Unknown N39.0 - Urinary KatieYony fong Active [facility] tract infection, Community site not specified / Hospital N39.0(ICD-10) Repository 12/30/2017 Unknown F11.20 - Opioid Basali, Ayman Active [place] dependence, Community uncomplicated / Hospital F11.20(ICD-10) Repository PROCEDURES PROCEDURES No Procedure Records FoundRESULTS RESULTS THYROID STIM HORMONE Collected: 07/14/2018 Status: F Source: [place] (TSH) 11:44 AM [facility] REPOSITORY TYPE CODE TESTS RESULT OUT OF RANGE REFERENCE UNITS LAB L501.9520 0.358-3.74 uIU/mL Normal TSH 1.57 Performed By: #### L501.9520, L503.6150, L503.6550 #### [facility] [address] [place], [place], [address] IRON Collected: 07/14/2018 Status: F Source: [place] 11:44 AM [facility] REPOSITORY TYPE CODE TESTS RESULT OUT OF RANGE REFERENCE UNITS LAB L503.6150 50-170 ug/dL Low IRON 33 Performed By: #### L501.9520, L503.6150, L503.6550 #### [facility] [address] [place], [address] FERRITIN Collected: 07/14/2018 Status: F Source: [place] 11:44 AM [facility] REPOSITORY TYPE CODE TESTS RESULT OUT OF RANGE REFERENCE UNITS LAB L503.6550 8-252 ng/mL Normal FERRITIN 12 Performed By: #### L501.9520, L503.6150, L503.6550 #### [facility] [address] [place], [address] CBC W/DIFF, AUTOMATED Collected: 07/14/2018 Status: F Source: [place] 11:44 AM [facility] REPOSITORY TYPE CODE TESTS RESULT OUT OF RANGE REFERENCE UNITS LAB L100.1000 4.4-11.0 K/mm3 Normal WBC 6.9 LAB L100.1200 4.2-5.4 M/mm3 Normal RBC 4.28 LAB L100.1300 12.0-15.0 g/dl Low HGB 10.6 LAB L100.1400 37-47 % Low HCT 35.6 LAB L100.1500 81-99 fL Normal MCV 83.2 LAB L100.1600 27.0-32.0 pg Low MCH 24.8 LAB L100.1700 32-36 g/gl Low MCHC 29.8 LAB L100.1810 11.6-14.6 % High RDW CV 17.5 LAB L100.1820 35.1-43.9 fl High RDW SD 52.8 LAB L100.1900 150-450 K/mm3 Normal PLT 255 LAB L100.2000 6.2-12.0 fl Normal MPV 10.1 LAB L100.2100 47-70 % Normal NEUT% 57.1 LAB L100.2200 19-41 % Normal LY% 25.0 LAB L100.2300 0-10 % Normal MONO% 8.4 LAB L100.2400 0-5 % High EO% 9.1 LAB L100.2500 0-1 % Normal BASO% 0.3 LAB L100.2550 0.0-0.9 % Normal IM GRAN % 0.100 Result Comment: IG% - Immature Granulocytes (promyelocytes, myelocytes and metamyelocytes) > 1% indicates that a LEFT SHIFT is Present. LAB L100.2620 2.0-7.7 X10 3/uL Normal Absolute Neut 3.9 LAB L100.2720 0.83-4.51 X10 3/ul Normal Absolute Lymph 1.72 Performed By: #### L100.0100 #### [facility] [address] [place], [address] VITAMIN B12 Collected: 07/14/2018 Status: F Source: [place] 11:44 AM [facility] REPOSITORY TYPE CODE TESTS RESULT OUT OF RANGE REFERENCE UNITS LAB L503.0105 211-911 pg/mL Normal Vitamin B12 363 Performed By: #### L503.0105 #### [facility] [address] [place], [place], [address] SHOULDER MIN 2 VIEWS Observed: 05/19/2018 Status: F Source: [place] 12:38 PM [facility] REPOSITORY [facility] Imaging Services [address] [place] [address] Shoulder min 2 Views MR#: [id number] Acct: [id number] Name: QASIM KANG Rep #: [id number] : 1935 F 82 From: Eris Valadez DO PCP: Yony Wilson MD Status: REG CLI Study: Shoulder min 2 Views Date of Exam: 05/19/18 Exam# [id number] Ordering Dr: Daphnie Negron MD STUDY: X-RAY [...] CC: Daphnie Negron MD; Yony Wilson MD Assistant Community Director: Signed SHOULDER MIN 2 VIEWS Observed: 05/19/2018 Status: F Source: [place] 12:38 PM [facility] REPOSITORY [facility] Imaging Services [address] [place] [address] Shoulder min 2 Views MR#: [id number] Acct: [id number] Name: QASIM KANG Rep #: [id number] : 1935 F 82 From: Eris Valadez DO PCP: Yony Wilson MD Status: REG CLI Study: Shoulder min 2 Views Date of Exam: 05/19/18 Exam# [id number] Ordering Dr: Daphnie Negron MD STUDY: X-RAY [...] CC: Daphnie Negron MD; Yony Wilson MD Assistant Community Director: Signed COMPREHENSIVE METABOLIC Collected: 05/08/2018 Status: F Source: [place] DORIAN 3:16 PM [facility] REPOSITORY TYPE CODE TESTS RESULT OUT OF [...] GAP 10 Performed By: #### L500.4050 #### [facility] [address] [facility] [place], [place], [address] CBC W/DIFF, AUTOMATED Collected: 05/08/2018 Status: F Source: [place] 3:16 PM [facility] REPOSITORY TYPE CODE TESTS RESULT OUT OF [...] Lymph 0.96 Performed By: #### L100.0100 #### [facility] [address] [place], [place], [address] THYROID STIM HORMONE Collected: 03/11/2018 Status: F Source: [place] (TSH) 3:34 PM [facility] REPOSITORY TYPE CODE TESTS RESULT OUT OF RANGE REFERENCE UNITS LAB L501.9520 0.358-3.74 uIU/mL Normal TSH 2.17 Performed By: #### L501.9520, L506.0400, L3100.5420 #### [facility] [address] [facility] [place], [place], [address] T4 FREE DIRECT Collected: 03/11/2018 Status: F Source: [place] 3:34 PM [facility] REPOSITORY TYPE CODE TESTS RESULT OUT OF RANGE REFERENCE UNITS LAB L506.0400 0.76-1.46 ng/dL Normal T4 FREE 0.80 DIRECT Performed By: #### L501.9520, L506.0400, L3100.5420 #### [facility] [address] [place], [address] PROLACTIN Collected: 03/11/2018 Status: F Source: [place] 3:34 PM [facility] REPOSITORY TYPE CODE TESTS RESULT OUT OF RANGE REFERENCE UNITS LAB L3100.5420 ng/mL Normal PROLACTIN 15.2 Result Comment: NORMAL REFERENCE RANGES FEMALE NON- 2.2 - 30.3 ng/mL 8.1 - 347.6 ng/mL POST-MENOPAUSAL 0.7 - 31.5 ng/mL MALE 2.5 - 17.4 ng/mL NEW TEST METHOD AND REFERENCE RANGES NOVEMBER 11, 2011 Performed By: #### L501.9520, L506.0400, L3100.5420 #### [facility] [address] [facility] [place], [address] Observed: 02/16/2018 Status: F Source: [place] CULTURE, URINE 4:34 PM [facility] REPOSITORY COLLECTED AT HOME AND DROPPED OFF IN OFFICE. HELICOPTER PILOT INSTRUCTOR COLLECTED FROM PT. Urine Culture ORGANISM 1: Mixed Gram Pos AND Gram Neg Org [place] Count >100,000 MIX CULTURE Mixed contaminants. Submit a new specimen if indicated. Performed By: #### M100.0650 #### [facility] [address] [facility] [place], [address] COMPREHENSIVE METABOLIC Collected: 02/09/2018 Status: F Source: [place] PROFIL 2:37 PM [facility] REPOSITORY TYPE CODE TESTS RESULT OUT OF [...] GAP 7 Performed By: #### L500.4050 #### [facility] [address] [facility] [place], [address] CBC W/DIFF, AUTOMATED Collected: 02/09/2018 Status: F Source: [place] 2:37 PM [facility] REPOSITORY TYPE CODE TESTS RESULT OUT OF [...] Lymph 0.94 Performed By: #### L100.0100 #### [facility] [address] [place], [address] URINALYSIS, COMPLETE Collected: 01/23/2018 Status: F Source: [place] 10:59 AM [facility] REPOSITORY Order Comment: How was Urine Obtained? [...] URINE SEEN Performed By: #### L400.0001 #### [facility] [address] [place], [address] Observed: 01/23/2018 Status: F Source: [place] CULTURE, URINE 10:59 AM [facility] REPOSITORY Urine Culture Below infection level. Possible skin contamination. ORGANISM 1: Mixed Gram Positive Organisms [place] Count 1000-10,000 Performed By: #### M100.0650 #### [facility] [address] [place], [address] CBC W/DIFF, AUTOMATED Collected: 01/07/2018 Status: F Source: [place] 1:11 PM [facility] REPOSITORY TYPE CODE TESTS RESULT OUT OF [...] Lymph 1.40 Performed By: #### L100.0100 #### [facility] [address] [place], [address] COMPREHENSIVE METABOLIC Collected: 01/07/2018 Status: F Source: [place] [facility] 1:11 PM [facility] REPOSITORY TYPE CODE TESTS RESULT OUT OF [...] GAP 7 Performed By: #### L500.4050 #### [facility] [address] [place], [place], [address] URINE DRUG SCREEN Collected: 12/30/2017 Status: F Source: [place] (VISTA) 1:59 PM [facility] REPOSITORY Order Comment: Comments: URINE TOXICOLOGY [id number] RUN LOWEST TEST List of Drugs Taken [...] Normal NEGATIVE Performed By: #### L505.5000 #### [facility] [address] [place], [address] MISCELLANEOUS LAB Collected: 12/30/2017 Status: F Source: [place] PROCEDURE 1:59 PM [facility] REPOSITORY Order Comment: Comments: URINE TOXICOLOGY [id number] RUN LOWEST TEST Test(s) Ordered: URINE TOXICOLOGY [id number] RUN LOWEST TEST TYPE CODE TESTS RESULT OUT OF RANGE REFERENCE UNITS LAB L801.1541 Normal [facility] LAB TEST Result Comment: [id number] 6+OXYCODONE-BUND (ng/mL) DRUG RESULT SCREEN CUTOFF ____ [...] GC/MS >3000 ng/mL 300 TESTING PERFORMED AT [facility]. ORIGINAL REPORT ON FILE IN LAB CONTAINS ADDITIONAL TEST SITE INFORMATION. Performed By: #### L801.1541 #### [facility] [address] [place] [address]. [place], [address] 12 LEAD ELECTROCARDIOGRAM Observed: 12/22/2017 Status: F Source: [place] 3:03 PM [facility] REPOSITORY [facility] Cardiovascular Services [address] [place] [address] 12 Lead EKG 12/18/17 2135 MR#: [id number] Acct: [id number] Name: QASIM KANG Rep #: [id number] : 1935 82 From: Gabriel Bills MD Attending Dr: Simon Alavrenga DO Status: DIS ROSALINE Ordering Dr: Rosita Downing MD Date: 12/18/17 Location: [facility] Sex: F C Admitted: 12/18/17 Test Reason [...] ECG Confirmed by GABRIEL BILLS MD ([id number]), science editor ZHANG GUZMAN ([id number]) on 12/22/2017 3:03:24 PM Referred By: SHYLA Confirmed By:GABRIEL BILLS MD 12/22/17 1503 Date Gabriel Bills MD CC: Rosita Downing MD; Simon Alvarenga DO; Yony Wilson MD Signed DISCHARGE SUMMARY Observed: 12/19/2017 Status: F Source: [place] 1:51 PM [facility] REPOSITORY [facility] Medical Records Department [address] [place] [address] Discharge Summary 12/19/17 1348 MR#: [id number] Acct: [id number] Name: QASIM KANG Rep #: [id number] : 1935 82 From: Simon Alvarenga DO PCP: Yony Wilson MD Status: ADM ROSALINE Y Location: [place] [id number] Discharge Date and Diagnosis - Problem List [...] Patient is already on sleep aid with [place]. Patient told to take the Ativan only [...] applicable Code Visit OBSV E AND M: 92093 Observation care discharge 12/19/17 1351 <Electronically signed by Simon Alvarenga DO> Date Simon Alvarenga DO Cosigner Signature (if applicable): Date CC: Simon Alvarenga DO; Yony Wilson MD Signed DISCHARGE INSTRUCTION Observed: 12/19/2017 Status: F Source: [place] 1:48 PM [facility] REPOSITORY [facility] Medical Records Department [address] [place] [address] Instructions for Home/Discharge Instructions 12/19/17 1347 MR#: [id number] Acct: [id number] Name: QASIM KANG Rep #: [id number] : 1935 82 From: Simon Alvarenga DO [...] 2 Weeks Proposed Discharge Date: 12/19/17 12/19/17 1808 <Electronically signed by Simon Alvarenga DO> Date Simon Alvarenga DO CC: Yony Wilson MD HISTORY AND PHYSICAL Observed: 12/19/2017 Status: F Source: [place] EXAM 1:35 AM [facility] REPOSITORY [facility] Medical Records Department [address] [place] [address] History and Physical 12/18/17 2326 MR#: [id number] Acct: [id number] Name: QASIM KANG Rep #: [id number] : 1935 82 From: Blair Vargas DO PCP: Yony Wilson MD Status: ADM ROSALINE Y Location: [place] [address] Problem List (1) Lethargy Status: Acute History of Present Illness Date of Admission: 12/18/17 Chief Complaint: lethargy The patient is a 82 year old F who was seen in the emergency room at 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 Lives: Spouse/ Significant Other Smoking Status: [...] time Code Visit OBSV E AND M: 50394 Initial observation care L3 12/19/17 0135 <Electronically signed by Blair Vargas DO> Date Blair Vargas DO Cosigner Signature: Date (if applicable) CC: Blari Vargas DO; Yony Wilson MD Signed EMERGENCY DEPARTMENT Observed: 12/18/2017 Status: F Source: [place] SUMMARY 11:05 PM [facility] Medical Records Department [address] [place] [address] Emergency Department Summary 12/18/172131 MR#: [id number] Acct: [id number] Name: QASIM KANG Rep #: [id number] : 1935 82 From: Rosita Downing MD PCP: Yony Wilson MD Status: REG ER - ER Visit Summary Date of Service: 12/18/17 Chief Complaint: Overdose History of Present Illness: The patient is a 82 F presenting with overdose. Patient's states she has been under a lot of stress recently. Her daughter recently moved to [place]. Her dog recently . She was seen [...] Benzodiazepine overdose This note was generated with [employer] dictation software. It may contain incorrect words, [...] your Primary Care Provider. Call [facility] ([phone]) or report to the closest Emergency Room. Call 911 if necessary. 12/18/17 2305 <Electronically signed by Rosita Downing MD> Date Rosita Downing MD Cosigner Signature (If Indicated): Date CC: Yony Wilson MD URINE DRUG SCREEN Collected: 12/18/2017 Status: F Source: [place] (VISTA) 10:02 PM [facility] REPOSITORY TYPE CODE TESTS RESULT OUT OF [...] Normal NEGATIVE Performed By: #### L505.5000 #### [facility] [address] [place], [address] URINALYSIS, COMPLETE Collected: 12/18/2017 Status: F Source: [place] 10:02 PM [facility] REPOSITORY Order Comment: How was Urine Obtained? RESOURCE FORESTER TO SPECIFY TYPE CODE TESTS RESULT OUT [...] URINE SEEN Performed By: #### L400.0001 #### [facility] [address] [place], [address] CHEST 1 VIEW Observed: 12/18/2017 Status: F Source: [place] (PORTABLE) 9:30 PM [facility] REPOSITORY [facility] Imaging Services [address] [place] [address] Chest 1 View (Portable) MR#: [id number] Acct: [id number] Name: QASIM KANG Rep #: [id number] : 1935 F 82 From: Hayden Corea MD PCP: Yony Wilson MD Status: PRE ER Study: Chest 1 View (Portable) Date of Exam: 12/18/17 Exam# [id number] Ordering Dr: Rosita Downing MD STUDY: X-RAY [...] CC: Rosita Downing MD; Yony Wilson MD Assistant Community Director: Signed CBC W/DIFF, AUTOMATED Collected: 12/18/2017 Status: F Source: [place] 9:25 PM [facility] REPOSITORY TYPE CODE TESTS RESULT OUT OF [...] Lymph 1.36 Performed By: #### L100.0100 #### [facility] [address] [place], [address] BASIC METABOLIC Collected: 12/18/2017 Status: F Source: [place] PROFILE (BMP) 9:25 PM [facility] REPOSITORY TYPE CODE TESTS RESULT OUT OF [...] GAP 6 Performed By: #### L500.2500 #### [facility] [address] [facility] [place], [address] ALCOHOL, BLOOD Collected: 12/18/2017 Status: F Source: [place] (MEDICAL)-SERUM 9:25 PM [facility] REPOSITORY TYPE CODE TESTS RESULT OUT OF [...] fatal coma Performed By: #### L501.9100 #### [facility] [address] [facility] [place], [place], [address] SALICYLATE Collected: 12/18/2017 Status: F Source: [place] 9:25 PM [facility] REPOSITORY TYPE CODE TESTS RESULT OUT OF REFERENCE UNITS RANGE LAB L501.8300 2.8-20.0 mg/dL Low SALICYLATE < 1.7 Performed By: #### L501.8300, L501.8400 #### [facility] [address] [facility] [place], [place], [address] ACETAMINOPHEN (TYLENOL) Collected: 12/18/2017 Status: F Source: [place] LEVEL 9:25 PM [facility] REPOSITORY TYPE CODE TESTS RESULT OUT OF REFERENCE UNITS RANGE LAB L501.8400 10.0-30.0 ug/mL ACETAMINOPHEN Low < 2.0 Performed By: #### L501.8300, L501.8400 #### [facility] [address] [place], [place], [address] DISCHARGE SUMMARY Observed: 10/14/2017 Status: F Source: [place] 8:34 AM [facility] REPOSITORY [facility] Medical Records Department [address] [place] [address] Discharge Summary 10/14/17 0831 MR#: [id number] Acct: [id number] Name: QASIM KANG Rep #: [id number] : 1935 82 From: Emil Tamez MD PCP: Yony Wilson Status: ADM ROSALINE Y Location: [facility] DE706-4 Discharge Date and Diagnosis - Problem List [...] arthritis requested for PT OT eval and medical social consultant to assist with discharge planning 3. Rheumatoid [...] applicable Code Visit OBSV E AND M: 81188 Observation care discharge 10/14/17 0834 <Electronically signed by Emil Tamez MD> Date Emil Tamez MD Cosigner Signature (if applicable): Date CC: Emil Tamez MD; Yony Wilson Signed DISCHARGE INSTRUCTION Observed: 10/14/2017 Status: F Source: [place] 8:29 AM [facility] REPOSITORY [facility] Medical Records Department [address] [place] [address] Instructions for Home/Discharge Instructions 10/14/17827 MR#: [id number] Acct: [id number] Name: QASIM KANG Rep #: [id number] : 1935 82 From: Emil Tamez MD [...] 3- 5 days Proposed Discharge Date: 10/14/17 10/14/17828 <Electronically signed by Emil Tamez MD> Date Emil Tamez MD CC: Yony Wilson CBC W/DIFF, AUTOMATED Collected: 10/13/2017 Status: F Source: [place] 6:10 AM [facility] REPOSITORY Order Comment: REDRAW. PREVIOUS SPECIMEN REJECTED [...] Normal 1+ Performed By: #### L100.0100 #### [facility] [address] [place], [address] BASIC METABOLIC Collected: 10/13/2017 Status: F Source: [place] PROFILE (BMP) 5:24 AM [facility] REPOSITORY TYPE CODE TESTS RESULT OUT OF [...] 6 GAP Performed By: #### L500.2500 #### [facility] [address] 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 Performed By: #### M200.1000 #### [facility] [address] [facility] [place], [address] EMERGENCY DEPARTMENT Observed: 10/13/2017 Status: F Source: [place] SUMMARY 12:16 AM [facility] REPOSITORY [facility] Medical Records Department [address] [place] [address] Emergency Department Summary 10/12/17 2220 MR#: [id number] Acct: [id number] Name: QASIM KANG Rep #: [id number] : 1935 82 From: Isac Concepcion MD [...] Generalized weakness. This note was generated with [employer] dictation software. It may contain incorrect words, [...] problems, contact your Primary Care Provider. Call [facility] ([phone]) or report to the closest Emergency Room. Call 911 if necessary. 10/13/17 0016 <Electronically signed by Isac Concepcion MD> Date Isac Concepcion MD Cosigner Signature (If Indicated): Date CC: Yony Wilson URINALYSIS, COMPLETE Collected: 10/12/2017 Status: F Source: [place] 9:22 PM [facility] REPOSITORY Order Comment: How was Urine Obtained? [...] URINE SEEN Performed By: #### L400.0001 #### [facility], [address] Observed: 10/12/2017 Status: F Source: [place] CULTURE, URINE 9:22 PM [facility] REPOSITORY Order Date: 10/12/17 Urine Culture ORGANISM 1: Klebsiella pneumoniae sp pneum [place] Count >100,000 Klebsiella pneumoniae sp pneum: REACTION [...] <=20 S (NF) indicates non-formulary drug at [facility]. Approval by Infectious Disease Specialist required before non-formulary drugs may be ordered and/or dispensed. Performed By: #### M100.0650 #### [facility] [address] [place], [address] CBC W/DIFF, AUTOMATED Collected: 10/12/2017 Status: F Source: [place] 6:40 PM [facility] REPOSITORY TYPE CODE TESTS RESULT OUT OF [...] 0.90 Performed By: #### L100.0100, L101.9900 #### [facility] [address] [place], [address] ERYTHROCYTE SED RATE Collected: 10/12/2017 Status: F Source: [place] 6:40 PM [facility] REPOSITORY TYPE CODE TESTS RESULT OUT OF RANGE REFERENCE UNITS LAB L102.0000 0-30 mm/hr High SED RATE 76 Performed By: #### L100.0100, L101.9900 #### [facility] [address] [place], [address] BASIC METABOLIC Collected: 10/12/2017 Status: F Source: [place] PROFILE (BMP) 6:40 PM [facility] REPOSITORY TYPE CODE TESTS RESULT OUT OF [...] Performed By: #### L500.2500, L501.3620, L501.6710 #### [facility] [address] [place], [address] CPK TOTAL, CREATINE Collected: 10/12/2017 Status: F Source: [place] KINASE 6:40 PM [facility] REPOSITORY TYPE CODE TESTS RESULT OUT OF RANGE REFERENCE UNITS LAB L501.3620 26-192 U/L Normal CPK TOTAL 46 Performed By: #### L500.2500, L501.3620, L501.6710 #### [facility] [address] [facility] [place], [address] CRP Collected: 10/12/2017 Status: F Source: [place] 6:40 PM [facility] REPOSITORY TYPE CODE TESTS RESULT OUT OF RANGE REFERENCE UNITS LAB L501.6710 0.0-3.0 mg/L High 44.60 C-REACTIVE PROT Result Comment: C-Reactive Protein (CRP) provides useful information for the diagnosis, therapy and monitoring of inflammatory processes and associated diseases. For the evaluation of Relative Risk for Cardiovascular Disease, a High Sensitivity CRP (HSCRP) should be ordered. Performed By: #### L500.2500, L501.3620, L501.6710 #### [facility] [address] [facility] [facility] [address] [place], [place], [address] CBC W/DIFF, AUTOMATED Collected: 10/01/2017 Status: F Source: [place] 12:22 PM [facility] REPOSITORY TYPE CODE TESTS RESULT OUT OF [...] Lymph 1.27 Performed By: #### L100.0100 #### [facility] [address] [place], [address] COMPREHENSIVE METABOLIC Collected: 10/01/2017 Status: F Source: [facility] 12:22 PM [facility] REPOSITORY TYPE CODE TESTS RESULT OUT OF [...] GAP 8 Performed By: #### L500.4050 #### [facility] [address] [place], [address] ALLERGIES ALLERGIES DATE TYPE / CODE NAME / CODE REACTION SEVERITY SOURCE 12/19/2017 Drug Penicillins/ Hives Unknown [facility] Allergy/4160 [id number](R [facility] [address](SNOMED XNORM) Repository CT) ENCOUNTERS ENCOUNTERS ADMIT/DISCHARGE ACCOUNT ADMITTING ENCOUNTER LOCATION SOURCE NUMBER CLASS 07/14/2018 [id number] Ambulatory [address] ing:BFHLAB Repository 05/19/2018 [id number] Ambulatory [address] ing:RAD Repository 05/08/[id number] ing:MTLAB Repository 03/11/2018 [id number] Ambulatory [place] 8 [facility] ing:BFHLAB Repository 02/16/2018 [id number] Ambulatory [place] 6 [facility] ing:BFHLAB Repository 02/09/2018 [id number] Ambulatory [place] 3 [facility] ing:MTLAB Repository 01/23/2018 [id number] Ambulatory [place] 1 [facility] ing:BFHLAB Repository 01/07/2018 [id number] Ambulatory [place] Ashley 6 [facility] ing:MTLAB Repository 12/30/2017 [id number] Ambulatory [place] 3 [facility] ing:LAB Repository 12/18/2017/ [id number] Tereletsky, Ambulatory [place] Ashley [address] [facility] ing:PCURoom: Repository [id number]: 1 12/18/2017 [id number] Mykeeletsky, Ambulatory BMSBuilding:B [place] [address] [place] Repository 12/18/2017 [id number] Araceliky, Ambulatory BMSBuilding:B [place] [address] [facility] Repository 10/13/2017/ [id number] Christoph Ballesteros Ambulatory [place] 8 2 [facility] ing:AX0Quci: Repository [id number]: 1 10/13/2017 [id number] Christoph Ballesteros Ambulatory BMSBuilding:B [place] 6 [facility] Repository 10/13/2017 [id number] Lesli Christoph Ambulatory BMSBuilding:B [place] 2 [facility] Repository 10/13/2017 [id number] Lesli Christoph Ambulatory BMSBuilding:B [place] 2 [place] Repository 10/01/2017 [id number] Ambulatory [place] 7 [facility] ing:MTLAB Repository PAYERS PAYERS ENCOUNTER GUARANTOR PAYER SUBSCRIBER SOURCE 07/14/2018 QASIM Shrestha Primary Insurance:[facility] QASIM [id number] [facility] Oli COBURN: [facility] SERENITY Number: [id number], [place] [id number] Repository 71927Qhk: (330) Date:1873-46-66YX [phone] (HP) [address] [place] [phone]: 07/14/2018 Secondary NOT [place] Insurance:SELF PAY [facility] Number: Effective Repository Date:2018-07-14 05/19/2018 IVÁN L Primary Insurance:[facility] QASIM Henrietta Ashley [id number] [facility] SOLUTIONSPolicy TINKERDOB: Community SERENITY Number: [id number], [place] [id number] Repository 12800Tqq: (330) Date:9923-05-54ZW [phone] (HP) [address] [place] [phone]: 05/19/2018 Secondary NOT [place] Insurance:SELF PAY [facility] Number: Effective Repository Date:2018-05-19 05/08/2018 IVÁN L Primary Insurance:[facility] QASIM Henrietta [place] [id number] [facility] SOLUTIONSPolicy TINKERDOB: Community SERENITY Number: [id number], [place] [id number] Repository 01896Nhv: (330) Date:2505-69-77YX [phone] (HP) [address] [place] [phone]: 05/08/2018 Secondary NOT [place] Insurance:SELF PAY [facility] Number: Effective Repository Date:2018-05-08 03/11/2018 IVÁN L Primary Insurance:[facility] QASIM Henrietta Ashley [id number] MCR SOLUTIONSPolicy TINKERDOB: Community SERENITY Number: [id number], [place] [id number] Repository [address]Vay: (330) Date:8316-26-52ZV [phone] (HP) [address] [place] [phone]: 03/11/2018 Secondary NOT GIVENUNK [place] Insurance:SELF PAY [facility] Number: Effective Repository Date:2018-03-11 02/16/2018 IVÁN Mays Primary Insurance:[facility] QASIM Henrietta [place] [id number] MCR SOLUTIONSPolicy TINKERDOB: Community SERENITY Number: [id number], [place] [id number] Repository [address]35[address]Omc: (330) Date:8843-34-18QN [phone] () [address] [place] [phone]: 02/16/2018 Secondary NOT [place] Insurance:SELF PAY [facility] Number: Effective Repository Date:2018-02-16 02/09/2018 IVÁN Mays Primary Insurance:[facility] QASIM Henrietta Ashley [id number] MCR SOLUTIONSPolicy TINKERDOB: Community SERENITY Number: [id number], [place] [id number] Repository 94780Stz: (330) Date:5640-74-49YY [phone] () [address] [place] [id number]: 02/09/2018 Secondary NOT GIVENUNK Ashley Insurance:SELF PAY [facility] Number: Effective Repository Date:2018-02-09 01/23/2018 IVÁN Mays Primary Insurance:[facility] QASIM Henrietta Ashley [id number] MCR SOLUTIONSPolicy TINKERDOB: Community SERENITY Number: [id number], [place] [id number] Repository 80797Rbk: (330) Date:4948-70-54CK [phone] () [address] [place] [phone]: 01/23/2018 Secondary NOT GIVENUNK Ashley Insurance:SELF PAY [facility] Number: Effective Repository Date:2018-01-23 01/07/2018 IVÁN Mays Primary Insurance:[facility] QASIM G Ashley [id number] MCR SOLUTIONSPolicy TINKERDOB: Community SERENITY Number: [id number], [place] [id number] Repository 49805Hvn: (330) Date:4533-36-73GF [phone] (HP) [address] [place] [phone]: 01/07/2018 Secondary NOT [place]IVEN[place]K [place] Insurance:SELF PAY [facility] Number: Effective Repository Date:2018-01-07 12/30/2017 IVÁN L Primary Insurance:[facility] QASIM Henrietta Ashley [id number] MCR SOLUTIONSPolicy TINKERDOB: Community SERENITY Number: [id number], [place] [id number] Repository 74290Ehn: (330) Date:0573-94-44DR [phone] (HP) [address] [place] [phone]: 12/30/2017 Secondary NOT GIVENUNK Ashley Insurance:SELF PAY [facility] Number: Effective Repository Date:2017-12-30 12/18/2017 IVÁN L Primary Insurance:[facility] AQSIM G [place] [id number] MCR SOLUTIONSPolicy TINKERDOB: Community SERENITY Number: [id number], [place] [id number] Repository 56384Rup: (330) Date:1735-19-10EP [phone] (HP) [address] [place] [phone]: 12/18/2017 Secondary NOT [place]IV[place]K [place] Insurance:SELF PAY [facility] Number: Effective Repository Date:2017-12-18 12/18/2017 IVÁN L Primary Insurance:[facility] QASIM G [place] [id number] MCR SOLUTIONSPolicy TINKERDOB: Community SERENITY Number: [id number], [place] [id number] Repository 82862Kdk: (330) Date:0138-02-75BM [phone] (HP) [address] [place] [phone]: 12/18/2017 Secondary NOT GIVENUNK [place] Insurance:SELF PAY [facility] Number: Effective Repository Date:2017-12-18 12/18/2017 IVÁN Mays Primary Insurance:[facility] QASIM Henrietta [place] [id number] MCR SOLUTIONSPolicy TINKERDOB: Community SERENITY Number: [id number], [place] [id number] Repository 78947Ppd: (330) Date:8249-15-57BO [phone] (HP) [address] [place] [phone]: 12/18/2017 Secondary NOT GIVENUNK [place] Insurance:SELF PAY [facility] Number: Effective Repository Date:2017-12-18 10/13/2017 Iván Mays Primary Insurance:[facility] QASIM Henrietta [place] [id number] [facility] SOLUTIONSPolicy TINKERDOB: [facility] Serenity Number: [id number], [place] [id number] Repository 10279Jsz: (330) Date:2303-79-70GO [phone] (HP) [address] [place] [phone]: 10/13/2017 Secondary NOT GIV[place]K [place] Insurance:SELF PAY [facility] Number: Effective Repository Date:2017-10-12 10/13/2017 IVÁN Mays Primary Insurance:[facility] QASIM Henrietta [place] [id number] [facility] SOLUTIONSPolicy TINKERDOB: [facility] SERENITY Number: [id number], [place] [id number] Repository 22569Gff: (330) Date:4347-82-03KR [phone] (HP) [address] [place] [phone]: 10/13/2017 Secondary NOT GIVENUNK [place] Insurance:SELF PAY [facility] Number: Effective Repository Date:2017-10-12 10/13/2017 Iván L Primary Insurance:[facility] QASIM Henrietta Ashley [id number] MCR SOLUTIONSPolicy TINKERDOB: Community Serenity Number: [id number], [place] [id number] Repository 31270Poe: (330) Date:5007-97-34MV [phone] (HP) [address] [place] [phone]: 10/13/2017 Secondary NOT GIVENUNK [place] Insurance:SELF PAY [facility] Number: Effective Repository Date:2017-10-13 10/13/2017 Iván L Primary Insurance:[facility] QASIM Shrestha [place] [id number] [facility] SOLUTIONSPolicy TINKERDOB: Community Serenity Number: [id number], [place] [id number] Repository 41913Ttt: (330) Date:0458-68-00TS [phone] (HP) [address] [place] [phone]: 10/13/2017 Secondary NOT GIVENUNK [place] Insurance:SELF PAY [facility] Number: Effective Repository Date:2017-10-13 10/01/2017 Iván L Primary Insurance:[facility] QASIM Henrietta [place] [id number] [facility] SOLUTIONSPolicy TINKERDOB: Community Serenity Number: [id number], [place] [id number] Repository 71180Wvy: (330) Date:2655-55-65QH [phone] (HP) [address] [place] [phone]: 10/01/2017 Secondary NOT GIVENUNK Ashley Insurance:SELF PAY [facility] Number: Effective Repository Date:2017-10-01
== END ==
PROVIDERS: Family Provider Family Medicine; PCP Family Medicine; Visit Provider Family Medicine
DX: D64.9 Anemia, unspecified (principal); I10 Essential (primary) hypertension; R41.0 Disorientation, unspecified
CPT/HCPCS: 36415; 82607; 82728; 83540; 84443; 85025

== ENCOUNTER → 2018-09-01 12:38 | Outpatient (CLI) | payer MEDICARE, SELFPAY ==
[2018-09-01 13:48] LABS: Absolute Lymphocyte Count 1.49 X10^3/ul (0.83-4.51); Absolute Neutrophil Count 5.1 X10^3/uL (2.0-7.7); Basophil# 0.03 X10^3/uL; Basophil% 0.4 % (0-1); Eosinophil# 0.27 X10^3/uL; Eosinophils% 3.6 % (0-5); Hematocrit 41.6 % (37-47); Hemoglobin 12.4 g/dl (12.0-15.0); Lymphocyte # 1.49 X10^3/ul (4.0); Lymphocyte % 19.9 % (19-41); Mean Corp Hgb Conc 29.8 g/gl (32-36); Mean Corpuscular Hgb 25.7 pg (27.0-32.0); Mean Corpuscular Volume 86.3 fL (81-99); Mean Platelet Vol. 10.4 fl (6.2-12.0); Monocyte# 0.61 X10^3/uL; Monocyte% 8.2 % (0-10); Neutrophil # 5.06 X10^3/uL (2.7-7.7); Neutrophil % 67.8 % (47-70); Platelet Count 269 K/mm3 (150-450); RBC Distribution Width CV 16.7 % (11.6-14.6); RBC Distribution Width SD 52.7 fl (35.1-43.9); Red Blood Count 4.82 M/mm3 (4.2-5.4); White Blood Count 7.5 K/mm3 (4.4-11.0)
[2018-09-01 13:49] LABS: POSITIVE COUNT NO; POSITIVE DIFFERENTIAL NO; POSITIVE MORPHOLOGY NO
[2018-09-01 14:05] LABS: AST(SGOT) 14 U/L (15-37); Alanine Aminotransfer ALT/SGPT 16 U/L (13-56); Albumin, Serum 3.3 g/dL (3.2-5.0); Alkaline Phosphatase 71 U/L (45-117); Anion Gap 7 (5-15); BUN 14 mg/dL (7-18); BUN/Creat Ratio 15.2 RATIO (10-20); Calcium,Total 8.9 mg/dL (8.5-10.1); Chloride 104 mmol/L (98-107); Creatinine, Serum 0.92 mg/dL (0.55-1.02); EST Glomerular Filtration Rate 62 mL/min (>60); Est Glom Filt Rate - Afr Amer 75 mL/min (>60); Globulin 3.4 g/dL (2.2-4.2); Glucose 107 mg/dL (74-106); Potassium 3.9 mmol/L (3.5-5.1); Protein, Total 6.7 g/dL (6.4-8.2); Sodium Level 138 mmol/L (136-145)
== END ==
PROVIDERS: Family Provider Family Medicine; PCP Family Medicine; Referring Provider Internal Medicine Rheumatology; Visit Provider Internal Medicine Rheumatology
DX: L40.59 Other psoriatic arthropathy (principal); L40.8 Other psoriasis; M79.7 Fibromyalgia; M17.0 Bilateral primary osteoarthritis of knee; K21.0 Gastro-esophageal reflux disease with esophagitis; M47.897 Other spondylosis, lumbosacral region; M47.892 Other spondylosis, cervical region; Z79.899 Other long term (current) drug therapy; Z85.42 Personal history of malignant neoplasm of other parts of uterus
CPT/HCPCS: 36415; 80053; 85025

== ENCOUNTER → 2018-10-05 16:18 | Outpatient (CLI) | payer MEDICARE, SELFPAY ==
[2018-10-05 17:25] LABS: Amphetamine Urine VISTA NEGATIVE (<1000 ng/mL); Barbiturate Urine VISTA NEGATIVE (< 200 ng/mL); Benzodiazepine Urine VISTA NEGATIVE (< 200 ng/mL); Cocaine Urine VISTA NEGATIVE (< 300 ng/mL); Ecstacy Urine VISTA NEGATIVE (< 500 ng/mL); Methadone Urine VISTA NEGATIVE (< 300 ng/mL); PCP Urine VISTA NEGATIVE (< 25 ng/mL); THC Urine VISTA NEGATIVE (< 50 ng/mL); Vista UDS pH Range 6
== END ==
PROVIDERS: Family Provider Family Medicine; PCP Family Medicine; Referring Provider Anesthesiology Pain Medicine; Visit Provider Anesthesiology Pain Medicine
DX: F11.20 Opioid dependence, uncomplicated (principal)
CPT/HCPCS: 80307

== ENCOUNTER → 2018-11-18 | Outpatient (CLI) | payer MEDICARE, SELFPAY ==
[2018-11-18 16:03] LABS: Absolute Lymphocyte Count 1.42 X10^3/ul (0.83-4.51); Absolute Neutrophil Count 6.2 X10^3/uL (2.0-7.7); Basophil# 0.03 X10^3/uL; Basophil% 0.3 % (0-1); Eosinophil# 0.33 X10^3/uL; Eosinophils% 3.8 % (0-5); Hematocrit 41.1 % (37-47); Hemoglobin 13.1 g/dl (12.0-15.0); Lymphocyte # 1.42 X10^3/ul (4.0); Lymphocyte % 16.3 % (19-41); Mean Corp Hgb Conc 31.9 g/gl (32-36); Mean Corpuscular Hgb 26.4 pg (27.0-32.0); Mean Corpuscular Volume 82.7 fL (81-99); Mean Platelet Vol. 9.9 fl (6.2-12.0); Monocyte% 8.1 % (0-10); Neutrophil # 6.21 X10^3/uL (2.7-7.7); Neutrophil % 71.5 % (47-70); Platelet Count 242 K/mm3 (150-450); RBC Distribution Width CV 15.7 % (11.6-14.6); RBC Distribution Width SD 47.8 fl (35.1-43.9); Red Blood Count 4.97 M/mm3 (4.2-5.4); White Blood Count 8.7 K/mm3 (4.4-11.0)
[2018-11-18 16:07] LABS: POSITIVE COUNT NO; POSITIVE DIFFERENTIAL NO; POSITIVE MORPHOLOGY NO
[2018-11-18 16:22] LABS: Ferritin 22 ng/mL (8-252); Iron 66 ug/dL (50-170)
[2018-11-18 16:23] LABS: Vitamin B12 1203 pg/mL (211-911)
== END | disposition home or self-care (01) ==
PROVIDERS: Family Provider Family Medicine; PCP Family Medicine; Visit Provider Family Medicine
DX: E61.1 Iron deficiency (principal); E53.8 Deficiency of other specified B group vitamins; D64.9 Anemia, unspecified
CPT/HCPCS: 36415; 82607; 82728; 83540; 85025

== ENCOUNTER → 2018-11-25 | Outpatient (CLI) | payer MEDICARE, SELFPAY ==
[2018-11-25 15:44] LABS: Absolute Lymphocyte Count 1.14 X10^3/ul (0.83-4.51); Absolute Neutrophil Count 4.6 X10^3/uL (2.0-7.7); Basophil# 0.03 X10^3/uL; Basophil% 0.5 % (0-1); Eosinophil# 0.31 X10^3/uL; Eosinophils% 4.7 % (0-5); Hematocrit 40.8 % (37-47); Hemoglobin 12.8 g/dl (12.0-15.0); Lymphocyte # 1.14 X10^3/ul (4.0); Lymphocyte % 17.1 % (19-41); Mean Corp Hgb Conc 31.4 g/gl (32-36); Mean Corpuscular Hgb 25.8 pg (27.0-32.0); Mean Corpuscular Volume 82.1 fL (81-99); Mean Platelet Vol. 10.6 fl (6.2-12.0); Neutrophil # 4.57 X10^3/uL (2.7-7.7); Neutrophil % 68.5 % (47-70); Platelet Count 227 K/mm3 (150-450); RBC Distribution Width CV 15.5 % (11.6-14.6); RBC Distribution Width SD 46.1 fl (35.1-43.9); Red Blood Count 4.97 M/mm3 (4.2-5.4); White Blood Count 6.7 K/mm3 (4.4-11.0)
[2018-11-25 15:53] LABS: AST(SGOT) 16 U/L (15-37); Alanine Aminotransfer ALT/SGPT 22 U/L (13-56); Albumin, Serum 3.3 g/dL (3.2-5.0); Alkaline Phosphatase 77 U/L (45-117); Anion Gap 6 (5-15); BUN 12 mg/dL (7-18); BUN/Creat Ratio 15.3 RATIO (10-20); Calcium,Total 8.9 mg/dL (8.5-10.1); Chloride 105 mmol/L (98-107); Creatinine, Serum 0.78 mg/dL (0.55-1.02); EST Glomerular Filtration Rate 75 mL/min (>60); Est Glom Filt Rate - Afr Amer 91 mL/min (>60); Globulin 3.4 g/dL (2.2-4.2); Glucose 95 mg/dL (74-106); Potassium 4.2 mmol/L (3.5-5.1); Protein, Total 6.7 g/dL (6.4-8.2); Sodium Level 139 mmol/L (136-145)
[2018-11-25 15:56] LABS: POSITIVE COUNT NO; POSITIVE DIFFERENTIAL NO; POSITIVE MORPHOLOGY NO
== END | disposition home or self-care (01) ==
LOC: MTLAB 13:31
PROVIDERS: Family Provider Family Medicine; PCP Family Medicine; Referring Provider Internal Medicine Rheumatology; Visit Provider Internal Medicine Rheumatology
DX: L40.59 Other psoriatic arthropathy (principal); Z79.899 Other long term (current) drug therapy; L40.8 Other psoriasis; M79.7 Fibromyalgia; M25.511 Pain in right shoulder; M17.0 Bilateral primary osteoarthritis of knee; K21.0 Gastro-esophageal reflux disease with esophagitis; M47.897 Other spondylosis, lumbosacral region; M47.892 Other spondylosis, cervical region; Z85.42 Personal history of malignant neoplasm of other parts of uterus
CPT/HCPCS: 36415; 80053; 85025

== ENCOUNTER → 2019-01-04 | Outpatient (CLI) | payer MEDICARE, SELFPAY ==
--- NOTE | 2019-01-04 11:38 | RAD_ITS ---
STUDY: X-RAY - CERVICAL SPINE REASON FOR EXAM: Female, 83 years old. Neck pain TECHNIQUE: 3 view(s) of the cervical spine were obtained. COMPARISON: None FINDINGS: Normal anterior atlantoaxial articulation. Normal odontoid process. Normal cervical lordosis. There is endplate spondylosis of C6 and C7. There is severe narrowing of the C6-7 disc space. The soft tissue structures are unremarkable. RAD/Cerv Spine 2 or 3 Views IMPRESSION: Cervical degenerative changes at the C6-7 level. There is no evidence of fracture or subluxation. Electronically Signed: Darwin Sahni MD at 21:21 EDT , Service support ,
== END | disposition home or self-care (01) ==
LOC: RAD 11:31
PROVIDERS: Family Provider Family Medicine; PCP Family Medicine; Referring Provider Anesthesiology Pain Medicine; Visit Provider Anesthesiology Pain Medicine
DX: M54.2 Cervicalgia (principal)
CPT/HCPCS: 72040

== ENCOUNTER → 2019-02-15 | Outpatient (CLI) | payer MEDICARE, SELFPAY | END | disposition home or self-care (01) | LOC: LABSPEC 12:02 | PROVIDERS: Family Provider Family Medicine; PCP Family Medicine; Visit Provider Family Medicine | DX: R32 Unspecified urinary incontinence (principal) | CPT/HCPCS: 87086; 87088 ==

== ENCOUNTER → 2019-04-26 14:53 | Outpatient (CLI) | payer MEDICARE, SELFPAY ==
--- NOTE | 2019-04-26 15:05 | RAD_ITS ---
STUDY: X-RAY - LEFT KNEE REASON FOR EXAM: Left knee pain. TECHNIQUE: 2 view(s) of the knee. COMPARISON: None. FINDINGS: Normal visualized distal femur. Normal visualized proximal tibia and fibula. Normal proximal tibiofibular articulation. There is mild joint space narrowing of the medial femorotibial compartment. There is mild joint space narrowing of the lateral femorotibial compartment. There is a small marginal osteophyte and moderate joint space narrowing of the patellofemoral articulation. There is a joint effusion. There is patellar enthesopathy. RAD/Knee 1 or 2 Views IMPRESSION: Arthrosis. Joint effusion. Electronically Signed: Trevor Caldwell MD at 15:26 EST Tel , Service support ,
== END ==
PROVIDERS: Family Provider Family Medicine; PCP Family Medicine; Referring Provider Anesthesiology Pain Medicine; Visit Provider Anesthesiology Pain Medicine
DX: M25.562 Pain in left knee (principal)
CPT/HCPCS: 73560

== ENCOUNTER → 2019-05-21 13:00 | Outpatient (CLI) | payer MEDICARE, SELFPAY ==
[2019-05-21 14:00] LABS: Absolute Lymphocyte Count 1.07 X10^3/uL (0.83-4.51); Basophil# 0.02 X10^3/uL; Basophil% 0.3 % (0-1); Eosinophil# 0.24 X10^3/uL; Eosinophils% 3.5 % (0-5); Hematocrit 41.5 % (37-47); Hemoglobin 12.9 g/dL (12.0-15.0); Lymphocyte # 1.07 X10^3/ul (4.0); Lymphocyte % 15.7 % (19-41); Mean Corp Hgb Conc 31.1 g/dL (32-36); Mean Corpuscular Volume 83.5 fL (81-99); Mean Platelet Vol. 10.3 fl (6.2-12.0); Monocyte# 0.49 X10^3/uL; Monocyte% 7.2 % (0-10); NRBC Flagged by Analyzer 0 % (0-5); Neutrophil # 4.97 X10^3/uL (2.7-7.7); Neutrophil % 73.2 % (47-70); Platelet Count 251 K/mm3 (150-450); RBC Distribution Width CV 14.5 % (11.6-14.6); RBC Distribution Width SD 44.1 fl (35.1-43.9); Red Blood Count 4.97 M/mm3 (4.2-5.4); White Blood Count 6.8 K/mm3 (4.4-11.0)
[2019-05-21 14:20] LABS: AST(SGOT) 19 U/L (15-37); Alanine Aminotransfer ALT/SGPT 21 U/L (13-56); Albumin, Serum 3.3 g/dL (3.2-5.0); Alkaline Phosphatase 79 U/L (45-117); Anion Gap 6 (5-15); BUN 13 mg/dL (7-18); BUN/Creat Ratio 18.1 RATIO (10-20); Calcium,Total 8.9 mg/dL (8.5-10.1); Chloride 108 mmol/L (98-107); Creatinine, Serum 0.72 mg/dL (0.55-1.02); EST Glomerular Filtration Rate 83 mL/min (>60); Est Glom Filt Rate - Afr Amer 100 mL/min (>60); Globulin 3.4 g/dL (2.2-4.2); Glucose 124 mg/dL (74-106); Potassium 3.9 mmol/L (3.5-5.1); Protein, Total 6.7 g/dL (6.4-8.2); Sodium Level 143 mmol/L (136-145)
== END ==
PROVIDERS: Family Provider Family Medicine; PCP Family Medicine; Referring Provider Internal Medicine Rheumatology; Visit Provider Internal Medicine Rheumatology
DX: L40.59 Other psoriatic arthropathy (principal); Z79.899 Other long term (current) drug therapy; L40.8 Other psoriasis; M79.7 Fibromyalgia; M17.0 Bilateral primary osteoarthritis of knee; K21.0 Gastro-esophageal reflux disease with esophagitis; M47.897 Other spondylosis, lumbosacral region; M47.892 Other spondylosis, cervical region; Z85.42 Personal history of malignant neoplasm of other parts of uterus
CPT/HCPCS: 36415; 80053; 85025

== ENCOUNTER → 2019-07-02 17:27 | Outpatient (CLI) | payer MEDICARE, SELFPAY ==
[2019-07-02 17:28] LABS: Pathologist Comment May follow
[2019-07-02 19:21] LABS: Synovial Fld Mononuclear WBC % 92.4 %; Synovial Fld Polynuclear WBC # 0.072 10^3/uL; Synovial Fld Polynuclear WBC % 7.6 %
[2019-07-02 21:02] LABS: AUTO B FLUID DILUENT BKGD CT WBC <0.1 RBC <0.01 (W<.1,R<.01); Appearance /Synovial Fluid Cloudy (CLEAR); CRYSTALS, BODY FLUID See PATH REV; Color / Synovial Fluid Yellow (Pale Yellow); RBC /Synovial Fluid 1102 /mm3 (0); Source / Synovial Fluid L KNEE; Source- Body Fluid SYNOVIAL
[2019-07-02 21:03] LABS: Lymph 31 %; Monocyte /Synovial Fluid 19 %; Neutrophil 15 % (0-25); Other Cell /Synovial Fluid 35 %
[2019-07-02 21:05] LABS: Body Fluid QC Type(s) BF1Q,BF2Q
[2019-07-05 14:36] LABS: Pathologist Review Reviewed
== END ==
PROVIDERS: Family Provider Family Medicine; PCP Family Medicine; Referring Provider Internal Medicine Rheumatology; Visit Provider Internal Medicine Rheumatology
DX: L40.59 Other psoriatic arthropathy (principal); Z79.899 Other long term (current) drug therapy; L40.8 Other psoriasis; M79.7 Fibromyalgia; M17.0 Bilateral primary osteoarthritis of knee; K21.0 Gastro-esophageal reflux disease with esophagitis; M47.897 Other spondylosis, lumbosacral region; M47.892 Other spondylosis, cervical region; Z85.42 Personal history of malignant neoplasm of other parts of uterus
CPT/HCPCS: 87070; 87075; 87205; 89050; 89051; 89060

== ENCOUNTER → 2020-02-17 15:12 | Outpatient (CLI) | payer MEDICARE, SELFPAY ==
[2020-02-17 17:33] LABS: Absolute Neutrophil Count 5.5 X10^3/uL (2.0-7.7); Basophil# 0.03 X10^3/uL; Basophil% 0.4 % (0-1); Eosinophil# 0.21 X10^3/uL; Eosinophils% 2.7 % (0-5); Hematocrit 41.5 % (37-47); Hemoglobin 12.8 g/dL (12.0-15.0); Lymphocyte % 16.9 % (19-41); Mean Corp Hgb Conc 30.8 g/dL (32-36); Mean Corpuscular Hgb 26.1 pg (27.0-32.0); Mean Corpuscular Volume 84.5 fL (81-99); Mean Platelet Vol. 10.5 fl (6.2-12.0); Monocyte% 7.8 % (0-10); NRBC Flagged by Analyzer 0 % (0-5); Neutrophil # 5.52 X10^3/uL (2.7-7.7); Neutrophil % 71.8 % (47-70); Platelet Count 267 K/mm3 (150-450); RBC Distribution Width SD 45.9 fl (35.1-43.9); Red Blood Count 4.91 M/mm3 (4.2-5.4); White Blood Count 7.7 K/mm3 (4.4-11.0)
[2020-02-17 17:52] LABS: ALB/GLOB Ratio 0.9 RATIO (0.9-2.4); AST(SGOT) 19 U/L (15-37); Alanine Aminotransfer ALT/SGPT 26 U/L (13-56); Albumin, Serum 3.1 g/dL (3.2-5.0); Alkaline Phosphatase 63 U/L (45-117); Anion Gap 4 (5-15); BUN 14 mg/dL (7-18); BUN/Creat Ratio 15.5 RATIO (10-20); Chloride 106 mmol/L (98-107); Creatinine, Serum 0.91 mg/dL (0.55-1.02); EST Glomerular Filtration Rate 63 mL/min (>60); Est Glom Filt Rate - Afr Amer 76 mL/min (>60); Globulin 3.6 g/dL (2.2-4.2); Glucose 116 mg/dL (74-106); Potassium 3.9 mmol/L (3.5-5.1); Protein, Total 6.7 g/dL (6.4-8.2); Sodium Level 141 mmol/L (136-145)
== END ==
PROVIDERS: PCP Family Medicine; Referring Provider Internal Medicine Rheumatology; Visit Provider Internal Medicine Rheumatology
DX: L40.59 Other psoriatic arthropathy (principal); Z79.899 Other long term (current) drug therapy; L40.8 Other psoriasis; M79.7 Fibromyalgia; M17.0 Bilateral primary osteoarthritis of knee; K21.0 Gastro-esophageal reflux disease with esophagitis; M47.897 Other spondylosis, lumbosacral region; M47.892 Other spondylosis, cervical region; Z85.42 Personal history of malignant neoplasm of other parts of uterus
CPT/HCPCS: 36415; 80053; 85025

== ENCOUNTER → 2020-04-04 14:39 | Outpatient (CLI) | payer MEDICARE, SELFPAY ==
--- NOTE | 2020-04-04 14:43 | RAD_ITS ---
HISTORY: left knee pain and weakness ADDITIONAL HISTORY: None provided. EXAMINATION/TECHNIQUE: XR Knee Complete 4 Views or More Left Number of images including paperwork: 4 COMPARISON: 04/26/2019 FINDINGS: BONES: No acute fracture. JOINTS: No subluxation. Severe 3 compartment degenerative changes with joint space narrowing, subchondral sclerosis and osteophytes. Findings are most pronounced in the medial compartment and mildly increased compared to previous. SOFT TISSUES: No distinct foreign body. RAD/Knee 4 or More Views IMPRESSION: Degenerative changes without acute osseous abnormality. at 2342 Reported and signed by: Alessandra Alexandre MD Electronically Signed: Alessandra Alexandre MD at 23:42 EDT Tel , Service support ,
== END ==
PROVIDERS: PCP Family Medicine; Referring Provider Family Medicine; Visit Provider Family Medicine
DX: M25.562 Pain in left knee (principal)
CPT/HCPCS: 73564